=== PATIENT | female | born 1965 | race Caucasian/White ===

== ENCOUNTER 2017-05-08 05:12 | Inpatient (IN) ==
[2017-05-08] MEDS ORDERED: cefTRIAXone 1,000 MG in SODIUM CHLORIDE 0.9% 100 ML IV STA (05:33)
[2017-05-08] MEDS ORDERED: ENOXAPARIN 100 MG/ML SYRINGE SUBCUT STA (05:33)
[2017-05-08] MEDS ORDERED: ONDANSETRON ODT 4 MG TABLET PO STA (05:33)
[2017-05-08] MEDS ORDERED: ALBUTEROL 2.5 MG/3 ML NEB RESP TX STA (05:33)
[2017-05-08] MEDS ORDERED: methylPREDNISolone SOD SUC 125 MG/2 ML VIAL IV STA (05:33)
[2017-05-08] MEDS ORDERED: ONDANSETRON 4 MG/2 ML VIAL IV STA (05:37)
[2017-05-08] MEDS ORDERED: ENOXAPARIN 60 MG/0.6 ML SYRINGE ONE (05:38)
[2017-05-08] MEDS ORDERED: ONDANSETRON 4 MG/2 ML VIAL ONE (05:38)
[2017-05-08] MEDS ORDERED: cefTRIAXone 1,000 MG VIAL ONE (05:38)
[2017-05-08] MEDS ORDERED: ENOXAPARIN 30 MG/0.3 ML SYRINGE ONE (05:39)
[2017-05-08] MEDS ORDERED: methylPREDNISolone SOD SUC 125 MG/2 ML VIAL ONE (05:39)
[2017-05-08] MEDS ORDERED: LORazepam 2 MG/1 ML VIAL ONE (05:40)
[2017-05-08 05:44] LABS: Basophils % 0.4 % (0.0-0.8); Eosinophils # 0.1 10*3/uL (0.0-0.87); Eosinophils % 1.1 % (0.00-10.9); Hematocrit 38.5 VOL% (35.7-47.0); Hemoglobin 11.7 GM/DL (12.0-16.0); Immature Granulocytes % 0.2 %; Immature Granulocytes Absolute 0.02 #; Lymphocytes # 0.8 10*3/uL (1.4-4.0); Lymphocytes % 10.4 % (21.3-54.2); Mean Corpuscular HGB Conc 30.4 GM/DL (32-36); Mean Corpuscular Hemoglobin 26 PG (27-34); Mean Corpuscular Volume 86.1 FL (87-102); Mean Platelet Volume 9.4 FL (9.6-12.0); Monocytes # 1.1 10*3/uL (0.11-0.8); Neutrophils # 5.9 10*3/uL (1.4-7.4); Neutrophils % 73.9 % (38.7-73.9); Platelet Count 179 T/CUMM (130-400); Red Blood Count 4.47 MC/CUMM (3.8-5.5); Red Cell Distribution Width 13.6 % (9.3-17.3)
[2017-05-08 05:45] LABS: PT Patient Result 10.4 SECS
[2017-05-08 06:03] LABS: Albumin 3.8 G/DL (3.4-5.0); Bilirubin,Total 0.5 MG/DL (0.2-1.0); Calcium 8.8 MG/DL (8.5-10.1); Osmolality,Calculated 269.1 MOS/KG (273-304); Potassium 3.2 MMOL/L (3.5-5.1); Total Protein 7.1 G/DL (6.4-8.3)
[2017-05-08 06:05] LABS: ABG Base Excess 10.6 MMOL/L (-2.5-2.5); ABG HCO3 34.1 MMOL/L (20-26); ABG Oxygen Saturation 88.2 % (95-100); ABG PH 7.338 (7.35-7.45); ABG PO2 56.4 MM HG (80-95); ABG TCO2 35.8 MMOL/L (23-27)
[2017-05-08 06:10] LABS: ABG PCO2 73.4 MM HG (35-48)
[2017-05-08 07:05] LABS: Apearance,Urine CLEAR (Clear); Bilirubin,Urine Negative (Negative); Blood, Urine Large mg/dL (Negative); Glucose,Urine (UA) Negative (Negative); Ketones,Urine Negative (Negative); Mucus,Urine Occasional /LPF (Occasional); Nitrite,Urine Negative (Negative); Protein,Urine 100 MG/DL; RBC,Urine 99 /HPF (0-4); Squamous Epithelial Cell,Urine Occasional /HPF (0-10); Urine Color Yellow (Yellow); Urine Specific Gravity 1.031 (1.001-1.035); Urine Urobilinogen < 2.0 EU/DL (0.2-1.0); WBC,Urine 1 /HPF (0-6)
[2017-05-08 09:31] LABS: Apearance,Urine CLEAR (Clear); Bilirubin,Urine Negative (Negative); Blood, Urine Large mg/dL (Negative); Glucose,Urine (UA) Negative (Negative); Ketones,Urine Negative (Negative); Nitrite,Urine Negative (Negative); Protein,Urine 30 MG/DL; RBC,Urine 49 /HPF (0-4); Squamous Epithelial Cell,Urine Occasional /HPF (0-10); Urine Color Yellow (Yellow); WBC,Urine 3 /HPF (0-6)
[2017-05-08] MEDS ORDERED: DOCUSATE SODIUM 100 MG CAPSULE PO PRN (09:48)
[2017-05-08] MEDS ORDERED: ALBUTEROL 2.5 MG/3 ML NEB RESP TX PRN (09:48)
[2017-05-08] MEDS ORDERED: ONDANSETRON 4 MG/2 ML VIAL IV PRN (09:48)
[2017-05-08] MEDS: PANTOPRAZOLE 40 MG VIAL IV SCH (10:55)
[2017-05-08] MEDS: MEROPENEM 1,000 MG in SYRINGE 1 EACH IV SCH (11:38)
[2017-05-08] MEDS: NICOTINE 14 MG/24 HR PATCH TRANSDERM SCH (11:39)
[2017-05-08] MEDS: LEVOFLOXACIN INJ 500 MG in PREMIX 1 EACH IV SCH (11:40)
[2017-05-08] MEDS: POLYETHYLENE GLYCOL POWDER 17 GM PACK PO SCH (11:45)
[2017-05-08] MEDS: METHADONE 10 MG TABLET PO SCH (12:19)
[2017-05-08] MEDS: ALBUTEROL/IPRATROPIUM 3 ML NEB RESP TX SCH ×2 (13:33→18:14)
[2017-05-08] MEDS: VANCOMYCIN INJ 1,500 MG in SODIUM CHLORIDE 0.9% 500 ML IV SCH (14:06)
[2017-05-08] MEDS: THEOPHYLLINE ER 300 MG TABLET PO SCH (16:28)
[2017-05-08] MEDS: GABAPENTIN 600 MG TABLET PO SCH (16:28)
[2017-05-08 16:50] LABS: Apearance,Urine CLOUDY (Clear); Bilirubin,Urine Negative (Negative); Blood, Urine Large mg/dL (Negative); Glucose,Urine (UA) 50 mg/dL (Negative); Ketones,Urine 5 mg/dL (Negative); Nitrite,Urine Negative (Negative); Protein,Urine 30 MG/DL; RBC,Urine 6 /HPF (0-4); Squamous Epithelial Cell,Urine Occasional /HPF (0-10); Urine Urobilinogen < 2.0 EU/DL (0.2-1.0)
[2017-05-08 16:52] LABS: Urine Color Dark yellow (Yellow)
[2017-05-08] MEDS: methylPREDNISolone SOD SUC 40 MG/1 ML VIAL IV SCH (21:19)
[2017-05-08] MEDS: GABAPENTIN 300 MG CAPSULE PO SCH (21:21)
[2017-05-08] MEDS: BUDESONIDE/FORMOTEROL 160-4.5 INHALER 6 GM INH SCH (21:23)
[2017-05-09] MEDS: MEROPENEM 1,000 MG in SYRINGE 1 EACH IV SCH ×3 (00:30→23:52)
[2017-05-09] MEDS: VANCOMYCIN INJ 1,500 MG in SODIUM CHLORIDE 0.9% 500 ML IV SCH ×3 (00:53→23:59)
[2017-05-09] MEDS: ALBUTEROL/IPRATROPIUM 3 ML NEB RESP TX SCH ×3 (01:16→13:00)
[2017-05-09] MEDS: CITALOPRAM 20 MG TABLET PO SCH (08:58)
[2017-05-09] MEDS: THEOPHYLLINE ER 300 MG TABLET PO SCH ×2 (08:58→16:45)
[2017-05-09] MEDS: METHADONE 10 MG TABLET PO SCH (08:58)
[2017-05-09] MEDS ORDERED: POTASSIUM CHLORIDE 10 MEQ TABLET PO SCH (09:00)
[2017-05-09] MEDS: ATENOLOL 25 MG TABLET PO SCH (09:01)
[2017-05-09] MEDS: FUROSEMIDE 80 MG TABLET PO SCH (09:01)
[2017-05-09] MEDS: GABAPENTIN 300 MG CAPSULE PO SCH ×2 (09:01→21:04)
[2017-05-09] MEDS: ACETAMINOPHEN 325 MG TABLET PO PRN (09:01)
[2017-05-09] MEDS: methylPREDNISolone SOD SUC 40 MG/1 ML VIAL IV SCH ×2 (09:02→21:04)
[2017-05-09] MEDS: NICOTINE 14 MG/24 HR PATCH TRANSDERM SCH (09:02)
[2017-05-09] MEDS: PANTOPRAZOLE 40 MG VIAL IV SCH (09:08)
[2017-05-09] MEDS: POLYETHYLENE GLYCOL POWDER 17 GM PACK PO SCH (09:20)
[2017-05-09] MEDS: BUDESONIDE/FORMOTEROL 160-4.5 INHALER 6 GM INH SCH ×2 (09:22→21:05)
[2017-05-09] MEDS: LEVOFLOXACIN INJ 500 MG in PREMIX 1 EACH IV SCH (10:45)
[2017-05-09] MEDS ORDERED: CYCLOBENZAPRINE 10 MG TABLET PO PRN (14:14)
[2017-05-09] MEDS ORDERED: POTASSIUM CHLORIDE 20 MEQ TABLET PO ONE (14:17)
[2017-05-09] MEDS: ALPRAZolam 0.25 MG TABLET PO PRN ×2 (14:19→21:03)
[2017-05-09] MEDS: GABAPENTIN 600 MG TABLET PO SCH (16:49)
[2017-05-10] MEDS: ALBUTEROL/IPRATROPIUM 3 ML NEB RESP TX SCH ×5 (00:45→19:59)
[2017-05-10] MEDS: METHADONE 10 MG TABLET PO SCH (08:23)
[2017-05-10] MEDS: THEOPHYLLINE ER 300 MG TABLET PO SCH ×2 (08:24→17:40)
[2017-05-10] MEDS: ACETAMINOPHEN 325 MG TABLET PO PRN ×3 (08:24→17:40)
[2017-05-10] MEDS: ATENOLOL 25 MG TABLET PO SCH (08:24)
[2017-05-10] MEDS: FUROSEMIDE 80 MG TABLET PO SCH (08:24)
[2017-05-10] MEDS: GABAPENTIN 300 MG CAPSULE PO SCH ×2 (08:24→20:10)
[2017-05-10] MEDS: CITALOPRAM 20 MG TABLET PO SCH (08:25)
[2017-05-10] MEDS: NICOTINE 14 MG/24 HR PATCH TRANSDERM SCH (08:25)
[2017-05-10] MEDS: methylPREDNISolone SOD SUC 40 MG/1 ML VIAL IV SCH ×2 (08:25→20:10)
[2017-05-10] MEDS: POLYETHYLENE GLYCOL POWDER 17 GM PACK PO SCH (08:38)
[2017-05-10] MEDS: BUDESONIDE/FORMOTEROL 160-4.5 INHALER 6 GM INH SCH ×2 (08:40→20:10)
[2017-05-10] MEDS: PANTOPRAZOLE 40 MG VIAL IV SCH (09:39)
[2017-05-10] MEDS: MEROPENEM 1,000 MG in SYRINGE 1 EACH IV SCH (10:33)
[2017-05-10] MEDS: LEVOFLOXACIN INJ 500 MG in PREMIX 1 EACH IV SCH (10:36)
[2017-05-10] MEDS: METHYLNALTREXONE 12 MG/0.6 ML VIAL SUBCUT SCH (11:20)
[2017-05-10] MEDS: VANCOMYCIN INJ 1,500 MG in SODIUM CHLORIDE 0.9% 500 ML IV SCH (15:05)
[2017-05-10] MEDS: GABAPENTIN 600 MG TABLET PO SCH (17:41)
[2017-05-11] MEDS: VANCOMYCIN INJ 1,500 MG in SODIUM CHLORIDE 0.9% 500 ML IV SCH ×2 (00:02→16:30)
[2017-05-11] MEDS: ALBUTEROL/IPRATROPIUM 3 ML NEB RESP TX SCH ×4 (00:47→19:30)
[2017-05-11] MEDS: CLORAZEPATE 3.75 MG TABLET PO PRN ×3 (01:34→23:15)
[2017-05-11 05:45] LABS: Calcium 8.4 MG/DL (8.5-10.1); Osmolality,Calculated 282.5 MOS/KG (273-304)
[2017-05-11] MEDS: POLYETHYLENE GLYCOL POWDER 17 GM PACK PO SCH (08:55)
[2017-05-11] MEDS: GABAPENTIN 300 MG CAPSULE PO SCH ×2 (08:55→21:25)
[2017-05-11] MEDS: CITALOPRAM 20 MG TABLET PO SCH (08:55)
[2017-05-11] MEDS: FUROSEMIDE 80 MG TABLET PO SCH (08:55)
[2017-05-11] MEDS: ATENOLOL 25 MG TABLET PO SCH (08:55)
[2017-05-11] MEDS: THEOPHYLLINE ER 300 MG TABLET PO SCH ×2 (08:56→18:20)
[2017-05-11] MEDS: METHADONE 10 MG TABLET PO SCH ×2 (08:56→21:23)
[2017-05-11] MEDS: methylPREDNISolone SOD SUC 40 MG/1 ML VIAL IV SCH ×2 (08:57→21:25)
[2017-05-11] MEDS: PANTOPRAZOLE 40 MG VIAL IV SCH (09:01)
[2017-05-11] MEDS: METHYLNALTREXONE 12 MG/0.6 ML VIAL SUBCUT SCH (09:08)
[2017-05-11] MEDS: BUDESONIDE/FORMOTEROL 160-4.5 INHALER 6 GM INH SCH ×2 (09:08→21:25)
[2017-05-11] MEDS: NICOTINE 14 MG/24 HR PATCH TRANSDERM SCH (09:09)
[2017-05-11] MEDS: LEVOFLOXACIN INJ 500 MG in PREMIX 1 EACH IV SCH (11:20)
[2017-05-11] MEDS: POTASSIUM CHLORIDE 20 MEQ TABLET PO SCH ×2 (16:51→18:20)
[2017-05-11] MEDS: GABAPENTIN 600 MG TABLET PO SCH (16:51)
[2017-05-12] MEDS: ALBUTEROL/IPRATROPIUM 3 ML NEB RESP TX SCH ×3 (00:02→13:24)
[2017-05-12] MEDS: VANCOMYCIN INJ 1,500 MG in SODIUM CHLORIDE 0.9% 500 ML IV SCH (05:00)
[2017-05-12] MEDS: POLYETHYLENE GLYCOL POWDER 17 GM PACK PO SCH (08:39)
[2017-05-12] MEDS: methylPREDNISolone SOD SUC 40 MG/1 ML VIAL IV SCH (08:39)
[2017-05-12] MEDS: METHYLNALTREXONE 12 MG/0.6 ML VIAL SUBCUT SCH (08:40)
[2017-05-12] MEDS: NICOTINE 14 MG/24 HR PATCH TRANSDERM SCH (08:40)
[2017-05-12] MEDS: GABAPENTIN 300 MG CAPSULE PO SCH (08:41)
[2017-05-12] MEDS: METHADONE 10 MG TABLET PO SCH (08:41)
[2017-05-12] MEDS: BUDESONIDE/FORMOTEROL 160-4.5 INHALER 6 GM INH SCH (08:42)
[2017-05-12] MEDS: THEOPHYLLINE ER 300 MG TABLET PO SCH (08:42)
[2017-05-12] MEDS: ATENOLOL 25 MG TABLET PO SCH (08:42)
[2017-05-12] MEDS: CITALOPRAM 20 MG TABLET PO SCH (08:42)
[2017-05-12 08:58] VITALS: BP 152/87
[2017-05-12] MEDS: PANTOPRAZOLE 40 MG VIAL IV SCH (09:48)
[2017-05-12] MEDS: LEVOFLOXACIN INJ 500 MG in PREMIX 1 EACH IV SCH (11:49)
== END 2017-05-12 14:15 | disposition home health service (06) | DRG 140 ==
LOC: EDUNIT# → EDBD → N.ED 05:12 → SUATTDRO 09:18 → N.EDINP 09:18 → N.CC 10:08 → UNDODISIN 13:30
PROVIDERS: ADMIT Internal Medicine; ATTEND Internal Medicine

== ENCOUNTER 2019-04-16 20:02 | Inpatient (IN) ==
[2019-04-16] MEDS ORDERED: ONDANSETRON 4 MG/2 ML VIAL IV STA (20:27)
[2019-04-16] MEDS ORDERED: SODIUM CHLORIDE 0.9% 1,000 ML IV STA (20:27)
[2019-04-16 21:08] LABS: Basophils % 0.2 % (0.0-0.8); Eosinophils # 0.3 10*3/uL (0.0-0.87); Eosinophils % 2.9 % (0.00-10.9); Hematocrit 35.8 VOL% (35.7-47.0); Hemoglobin 10.8 GM/DL (12.0-16.0); Immature Granulocytes % 0.5 %; Immature Granulocytes Absolute 0.04 #; Lymphocytes # 0.8 10*3/uL (1.4-4.0); Lymphocytes % 9.3 % (21.3-54.2); Mean Corpuscular HGB Conc 30.2 GM/DL (32-36); Mean Corpuscular Volume 85.2 FL (87-102); Monocytes % 9.9 % (1.7-12.7); Neutrophils % 77.2 % (38.7-73.9); Platelet Count 172 T/CUMM (130-400); Red Cell Distribution Width 14.6 % (9.3-17.3); White Blood Count 8.8 T/CUMM (4-12)
[2019-04-16 21:31] LABS: Albumin 3.2 G/DL (3.4-5.0); Bilirubin,Total 0.6 MG/DL (0.2-1.0); Calcium 9.1 MG/DL (8.5-10.1); Osmolality,Calculated 262.4 MOS/KG (273-304); Total Protein 6.3 G/DL (6.4-8.3)
[2019-04-16 21:51] LABS: Apearance,Urine CLEAR (Clear); Bilirubin,Urine Negative (Negative); Blood, Urine Small mg/dL (Negative); Calcium Oxalate Crystals,Urine Occasional /HPF (Few); Glucose,Urine (UA) Negative (Negative); Ketones,Urine 5 mg/dL (Negative); Mucus,Urine Few /LPF (Occasional); Nitrite,Urine Negative (Negative); Protein,Urine Negative; RBC,Urine 18 /HPF (0-4); Squamous Epithelial Cell,Urine Few /HPF (0-10); Urine Color Amber (Yellow); Urine Specific Gravity > 1.060 (1.001-1.035); Urine Urobilinogen < 2.0 EU/DL (0.2-1.0); WBC,Urine 3 /HPF (0-6)
[2019-04-16] MEDS ORDERED: POTASSIUM CHLORIDE INJ 40 MEQ in DEXTROSE 5% 1,000 ML IV SCH (22:30)
[2019-04-16] MEDS ORDERED: ZALEPLON 5 MG CAPSULE PO PRN (22:58)
[2019-04-16] MEDS ORDERED: hydrALAZINE 20 MG/1 ML VIAL IV PRN (23:03)
[2019-04-16] MEDS ORDERED: ALBUTEROL 2.5 MG/3 ML NEB RESP TX PRN (23:06)
[2019-04-17] MEDS: DEXT 5% NACL 0.45% KCL 40 MEQ 40 MEQ/1,000 ML BAG IV SCH ×3 (03:46→22:48)
[2019-04-17 04:42] LABS: Basophils % 0.3 % (0.0-0.8); Eosinophils # 0.3 10*3/uL (0.0-0.87); Eosinophils % 3.5 % (0.00-10.9); Hematocrit 34.7 VOL% (35.7-47.0); Immature Granulocytes % 0.4 %; Immature Granulocytes Absolute 0.03 #; Lymphocytes # 0.9 10*3/uL (1.4-4.0); Lymphocytes % 12.3 % (21.3-54.2); Mean Corpuscular HGB Conc 29.4 GM/DL (32-36); Mean Corpuscular Volume 86.1 FL (87-102); Mean Platelet Volume 10.6 FL (9.6-12.0); Neutrophils % 70.5 % (38.7-73.9); Platelet Count 163 T/CUMM (130-400); Red Blood Count 4.03 MC/CUMM (3.8-5.5); Red Cell Distribution Width 14.7 % (9.3-17.3); White Blood Count 7.2 T/CUMM (4-12)
[2019-04-17 05:09] LABS: Calcium 9.2 MG/DL (8.5-10.1); Osmolality,Calculated 269.8 MOS/KG (273-304)
[2019-04-17 05:11] LABS: Hemoglobin 10.5 GM/DL (12.0-16.0)
[2019-04-17] MEDS: ACETAMINOPHEN 325 MG TABLET PO PRN (06:07)
[2019-04-17] MEDS ORDERED: CLINDAMYCIN INJ 900 MG in PREMIX 1 EACH IV ONE (07:05)
[2019-04-17] MEDS ORDERED: GABAPENTIN 300 MG CAPSULE PO SCH (09:00)
[2019-04-17] MEDS ORDERED: SPIRONOLACTONE 50 MG TABLET PO SCH (09:00)
[2019-04-17] MEDS ORDERED: FUROSEMIDE 40 MG TABLET PO SCH (09:00)
[2019-04-17] MEDS ORDERED: CITALOPRAM 20 MG TABLET PO SCH (09:00)
[2019-04-17] MEDS ORDERED: NIFEdipine 10 MG CAPSULE PO SCH (09:00)
[2019-04-17] MEDS ORDERED: atenoloL 25 MG TABLET PO SCH (09:00)
[2019-04-17] MEDS ORDERED: PANTOPRAZOLE 40 MG TABLET PO SCH (09:00)
[2019-04-17] MEDS ORDERED: TISSUE ADHESIVE 1 EACH APPLICATOR TOP ONE (09:18)
[2019-04-17] MEDS ORDERED: BUPIVACAINE MPF 0.25% 30 ML VIAL ONE ×2 (09:18→09:39)
[2019-04-17] MEDS ORDERED: LIDOCAINE 1%/EPI INJ 20 ML VIAL ONE (09:18)
[2019-04-17] MEDS ORDERED: LACTATED RINGERS 1,000 ML IV SCH (09:30)
[2019-04-17] MEDS ORDERED: LIDOCAINE 1% 5 ML VIAL ONE (09:39)
[2019-04-17] MEDS ORDERED: DEXAMETHASONE 4 MG/1 ML VIAL ONE (09:39)
[2019-04-17] MEDS ORDERED: propofoL 200 MG/20 ML VIAL IV ONE (12:05)
[2019-04-17] MEDS ORDERED: fentaNYL 100 MCG/2 ML VIAL ONE (12:05)
[2019-04-17] MEDS ORDERED: ROCURONIUM 100 MG/10 ML VIAL IV ONE (12:05)
[2019-04-17] MEDS ORDERED: SUCCINYLCHOLINE 200 MG/10 ML VIAL ONE (12:05)
[2019-04-17] MEDS ORDERED: MIDAZOLAM 2 MG/2 ML VIAL ONE (12:05)
[2019-04-17] MEDS ORDERED: LIDOCAINE 2% 5 ML VIAL ONE (12:05)
[2019-04-17] MEDS ORDERED: SEVOFLURANE 1 UNIT/15 MINUTE INH ONE (12:05)
[2019-04-17 12:14] LABS: Apearance,Urine Slightly Hazy (Clear); Bacteria,Urine Occasional /HPF (Few); Bilirubin,Urine Negative (Negative); Blood, Urine Moderate mg/dL (Negative); Glucose,Urine (UA) Negative (Negative); Ketones,Urine 20 mg/dL (Negative); Mucus,Urine Occasional /LPF (Occasional); Nitrite,Urine Negative (Negative); Protein,Urine Negative; RBC,Urine 48 /HPF (0-4); Squamous Epithelial Cell,Urine Occasional /HPF (0-10); Urine Color Amber (Yellow); Urine Specific Gravity > 1.060 (1.001-1.035); Urine Urobilinogen < 2.0 EU/DL (0.2-1.0); WBC,Urine 2 /HPF (0-6)
[2019-04-17 12:26] LABS: Basophils % 0.2 % (0.0-0.8); Eosinophils # 0.2 10*3/uL (0.0-0.87); Eosinophils % 2.1 % (0.00-10.9); Hematocrit 38.6 VOL% (35.7-47.0); Hemoglobin 11.6 GM/DL (12.0-16.0); Immature Granulocytes % 0.3 %; Immature Granulocytes Absolute 0.03 #; Lymphocytes # 1.4 10*3/uL (1.4-4.0); Lymphocytes % 14.2 % (21.3-54.2); Mean Corpuscular HGB Conc 30.1 GM/DL (32-36); Mean Corpuscular Volume 84.5 FL (87-102); Mean Platelet Volume 10.3 FL (9.6-12.0); Monocytes % 10.3 % (1.7-12.7); Neutrophils % 72.9 % (38.7-73.9); Platelet Count 172 T/CUMM (130-400); Red Blood Count 4.57 MC/CUMM (3.8-5.5); Red Cell Distribution Width 14.6 % (9.3-17.3); White Blood Count 9.5 T/CUMM (4-12)
[2019-04-17] MEDS: THEOPHYLLINE ER 300 MG TABLET PO SCH ×2 (12:28→18:40)
[2019-04-17] MEDS: METHADONE 10 MG TABLET PO SCH ×2 (12:29→22:43)
[2019-04-17] MEDS: CITALOPRAM 20 MG TABLET PO SCH (12:29)
[2019-04-17] MEDS: FUROSEMIDE 20 MG TABLET PO SCH (12:30)
[2019-04-17] MEDS: BUDESONIDE/FORMOTEROL 160-4.5 INHALER 6 GM INH SCH ×2 (12:31→22:43)
[2019-04-17] MEDS: GABAPENTIN 300 MG CAPSULE PO SCH (12:31)
[2019-04-17 12:38] LABS: Calcium 9.6 MG/DL (8.5-10.1); Osmolality,Calculated 269.8 MOS/KG (273-304)
[2019-04-17 12:48] LABS: ABG Base Excess 7.4 MMOL/L (-2.5-2.5); ABG HCO3 31.3 MMOL/L (20-26); ABG Oxygen Saturation 99.7 % (95-100); ABG PCO2 46.8 MM HG (35-48)
[2019-04-17] MEDS: HYDROmorphone 2 MG/1 ML VIAL IV PRN ×2 (13:02→22:22)
[2019-04-17] MEDS: fentaNYL INJ 1,250 MCG in SODIUM CHLORIDE 0.9% 225 ML IV PRN ×2 (13:10→23:06)
[2019-04-17] MEDS: ENOXAPARIN 40 MG/0.4 ML SYRINGE SUBCUT SCH (13:23)
[2019-04-17] MEDS: NICOTINE 21 MG/24 HR PATCH TRANSDERM SCH (13:25)
[2019-04-17] MEDS: ALBUTEROL/IPRATROPIUM 3 ML NEB RESP TX SCH (19:15)
[2019-04-17] MEDS: MAGNESIUM CHLORIDE 64 MG TABLET PO SCH (22:42)
[2019-04-17] MEDS: GABAPENTIN 100 MG CAPSULE PO SCH (22:43)
[2019-04-17] MEDS: atenoloL 25 MG TABLET PO SCH (22:50)
[2019-04-17] MEDS: THEOPHYLLINE 5.33 MG/ML 30 ML/BOTTLE PO SCH (23:02)
[2019-04-18] MEDS: ALBUTEROL/IPRATROPIUM 3 ML NEB RESP TX SCH ×4 (01:09→20:20)
[2019-04-18] MEDS: HYDROmorphone 2 MG/1 ML VIAL IV PRN ×5 (03:06→19:59)
[2019-04-18 03:15] LABS: ABG Base Excess 6.7 MMOL/L (-2.5-2.5); ABG HCO3 30.5 MMOL/L (20-26); ABG Oxygen Saturation 99.1 % (95-100); ABG PCO2 41.3 MM HG (35-48); ABG TCO2 27.3 MMOL/L (23-27); Allen Test Positive; Pt O2 Delivery Device Ventilator
[2019-04-18] MEDS: THEOPHYLLINE 5.33 MG/ML 30 ML/BOTTLE PO SCH ×3 (05:21→17:02)
[2019-04-18] MEDS: fentaNYL INJ 1,250 MCG in SODIUM CHLORIDE 0.9% 225 ML IV PRN (05:27)
[2019-04-18 06:23] LABS: Basophils % 0.2 % (0.0-0.8); Eosinophils # 0.1 10*3/uL (0.0-0.87); Eosinophils % 0.4 % (0.00-10.9); Hematocrit 34.2 VOL% (35.7-47.0); Hemoglobin 10.7 GM/DL (12.0-16.0); Immature Granulocytes % 0.6 %; Immature Granulocytes Absolute 0.08 #; Lymphocytes # 0.7 10*3/uL (1.4-4.0); Lymphocytes % 5.8 % (21.3-54.2); Mean Corpuscular HGB Conc 31.3 GM/DL (32-36); Mean Corpuscular Volume 82.4 FL (87-102); Mean Platelet Volume 10.5 FL (9.6-12.0); Monocytes % 9.9 % (1.7-12.7); Neutrophils % 83.1 % (38.7-73.9); Platelet Count 161 T/CUMM (130-400); Red Blood Count 4.15 MC/CUMM (3.8-5.5); Red Cell Distribution Width 14.8 % (9.3-17.3); White Blood Count 12.7 T/CUMM (4-12)
[2019-04-18 06:38] LABS: Calcium 8.3 MG/DL (8.5-10.1); Osmolality,Calculated 271.8 MOS/KG (273-304)
[2019-04-18] MEDS: POTASSIUM CHLORIDE RIDER 10 MEQ in PREMIX 1 EACH IV PRN ×3 (07:14→11:51)
[2019-04-18] MEDS: ENOXAPARIN 40 MG/0.4 ML SYRINGE SUBCUT SCH (08:30)
[2019-04-18] MEDS: CITALOPRAM 20 MG TABLET PO SCH (08:30)
[2019-04-18] MEDS: OMEPRAZOLE ODT 20 MG TABLET NG SCH (08:31)
[2019-04-18] MEDS: METHADONE 10 MG TABLET PO SCH ×2 (08:31→20:18)
[2019-04-18] MEDS: GABAPENTIN 300 MG CAPSULE PO SCH (08:31)
[2019-04-18] MEDS: CLORAZEPATE 3.75 MG TABLET PO PRN ×2 (08:31→20:17)
[2019-04-18] MEDS: FUROSEMIDE 20 MG TABLET PO SCH (08:31)
[2019-04-18] MEDS: NICOTINE 21 MG/24 HR PATCH TRANSDERM SCH (08:31)
[2019-04-18] MEDS ORDERED: MAGNESIUM SULF RIDER 2 GM in PREMIX 1 EACH IV ONE (08:37)
[2019-04-18] MEDS: BUDESONIDE/FORMOTEROL 160-4.5 INHALER 6 GM INH SCH ×2 (08:42→21:11)
[2019-04-18] MEDS: POTASSIUM CHLORIDE RIDER 10 MEQ in PREMIX 1 EACH IV SCH ×2 (08:42→09:45)
[2019-04-18] MEDS ORDERED: LANSOPRAZOLE 3 MG/ML 90 ML/BOTTLE NG SCH (09:00)
[2019-04-18] MEDS: POTASSIUM CHLORIDE INJ 20 MEQ in LACTATED RINGERS 1,000 ML IV SCH ×2 (09:43→17:09)
[2019-04-18] MEDS: MAGNESIUM CHLORIDE 64 MG TABLET PO SCH (20:17)
[2019-04-18] MEDS: GABAPENTIN 100 MG CAPSULE PO SCH (20:18)
[2019-04-18] MEDS: atenoloL 25 MG TABLET PO SCH (20:18)
[2019-04-18] MEDS: ONDANSETRON 4 MG/2 ML VIAL IV PRN (21:09)
[2019-04-19] MEDS: THEOPHYLLINE 5.33 MG/ML 30 ML/BOTTLE PO SCH ×4 (00:43→18:29)
[2019-04-19] MEDS: ALBUTEROL/IPRATROPIUM 3 ML NEB RESP TX SCH ×4 (02:01→20:11)
[2019-04-19] MEDS: POTASSIUM CHLORIDE INJ 20 MEQ in LACTATED RINGERS 1,000 ML IV SCH ×4 (02:29→20:59)
[2019-04-19] MEDS: HYDROmorphone 2 MG/1 ML VIAL IV PRN ×2 (06:21→18:29)
[2019-04-19 06:49] LABS: Basophils % 0.2 % (0.0-0.8); Eosinophils # 0.3 10*3/uL (0.0-0.87); Hematocrit 37.6 VOL% (35.7-47.0); Immature Granulocytes % 0.5 %; Immature Granulocytes Absolute 0.05 #; Lymphocytes # 0.7 10*3/uL (1.4-4.0); Lymphocytes % 6.2 % (21.3-54.2); Mean Corpuscular HGB Conc 29.3 GM/DL (32-36); Mean Corpuscular Volume 86.2 FL (87-102); Mean Platelet Volume 10.5 FL (9.6-12.0); Monocytes % 11.8 % (1.7-12.7); Neutrophils % 78.3 % (38.7-73.9); Platelet Count 153 T/CUMM (130-400); Red Blood Count 4.36 MC/CUMM (3.8-5.5); Red Cell Distribution Width 14.9 % (9.3-17.3); White Blood Count 10.8 T/CUMM (4-12)
[2019-04-19 06:51] LABS: Calcium 8.7 MG/DL (8.5-10.1); Osmolality,Calculated 271.7 MOS/KG (273-304)
[2019-04-19] MEDS: ONDANSETRON 4 MG/2 ML VIAL IV PRN (07:41)
[2019-04-19] MEDS: ENOXAPARIN 40 MG/0.4 ML SYRINGE SUBCUT SCH (08:31)
[2019-04-19] MEDS: CITALOPRAM 20 MG TABLET PO SCH (08:31)
[2019-04-19] MEDS: METHADONE 10 MG TABLET PO SCH ×2 (08:32→21:33)
[2019-04-19] MEDS: CLORAZEPATE 3.75 MG TABLET PO PRN ×2 (08:33→21:04)
[2019-04-19] MEDS: GABAPENTIN 300 MG CAPSULE PO SCH (08:33)
[2019-04-19] MEDS: NICOTINE 21 MG/24 HR PATCH TRANSDERM SCH (08:33)
[2019-04-19] MEDS: BUDESONIDE/FORMOTEROL 160-4.5 INHALER 6 GM INH SCH ×2 (08:34→21:00)
[2019-04-19] MEDS: OMEPRAZOLE ODT 20 MG TABLET NG SCH (08:34)
[2019-04-19] MEDS: GABAPENTIN 100 MG CAPSULE PO SCH (20:56)
[2019-04-19] MEDS: MAGNESIUM CHLORIDE 64 MG TABLET PO SCH (20:57)
[2019-04-19] MEDS: atenoloL 25 MG TABLET PO SCH (20:57)
[2019-04-20] MEDS: ALBUTEROL/IPRATROPIUM 3 ML NEB RESP TX SCH ×4 (00:34→19:22)
[2019-04-20] MEDS: THEOPHYLLINE 5.33 MG/ML 30 ML/BOTTLE PO SCH ×4 (00:37→21:21)
[2019-04-20] MEDS: POTASSIUM CHLORIDE INJ 20 MEQ in LACTATED RINGERS 1,000 ML IV SCH ×2 (04:00→12:55)
[2019-04-20 06:18] LABS: Basophils % 0.5 % (0.0-0.8); Eosinophils # 0.4 10*3/uL (0.0-0.87); Eosinophils % 5.2 % (0.00-10.9); Hemoglobin 9.7 GM/DL (12.0-16.0); Immature Granulocytes % 0.4 %; Immature Granulocytes Absolute 0.03 #; Lymphocytes # 0.9 10*3/uL (1.4-4.0); Lymphocytes % 10.6 % (21.3-54.2); Mean Corpuscular HGB Conc 29.4 GM/DL (32-36); Mean Corpuscular Volume 86.4 FL (87-102); Mean Platelet Volume 10.8 FL (9.6-12.0); Neutrophils % 70.3 % (38.7-73.9); Platelet Count 156 T/CUMM (130-400); Red Blood Count 3.82 MC/CUMM (3.8-5.5); Red Cell Distribution Width 14.8 % (9.3-17.3); White Blood Count 8.2 T/CUMM (4-12)
[2019-04-20 06:38] LABS: Calcium 8.6 MG/DL (8.5-10.1); Osmolality,Calculated 270.8 MOS/KG (273-304)
[2019-04-20] MEDS: OMEPRAZOLE ODT 20 MG TABLET NG SCH (09:13)
[2019-04-20] MEDS: METHADONE 10 MG TABLET PO SCH ×2 (09:13→21:17)
[2019-04-20] MEDS: CITALOPRAM 20 MG TABLET PO SCH (09:13)
[2019-04-20] MEDS: ENOXAPARIN 40 MG/0.4 ML SYRINGE SUBCUT SCH (09:13)
[2019-04-20] MEDS: NICOTINE 21 MG/24 HR PATCH TRANSDERM SCH (09:14)
[2019-04-20] MEDS: GABAPENTIN 300 MG CAPSULE PO SCH (09:14)
[2019-04-20] MEDS: BUDESONIDE/FORMOTEROL 160-4.5 INHALER 6 GM INH SCH ×2 (09:15→21:17)
[2019-04-20] MEDS: diphenhydrAMINE CAP 25 MG CAPSULE PO PRN ×2 (12:53→21:19)
[2019-04-20] MEDS: GABAPENTIN 100 MG CAPSULE PO SCH (21:19)
[2019-04-20] MEDS: MAGNESIUM CHLORIDE 64 MG TABLET PO SCH (21:19)
[2019-04-20] MEDS: CLORAZEPATE 3.75 MG TABLET PO PRN (21:20)
[2019-04-20] MEDS: atenoloL 25 MG TABLET PO SCH (21:20)
[2019-04-21] MEDS: ALBUTEROL/IPRATROPIUM 3 ML NEB RESP TX SCH ×4 (00:43→18:48)
[2019-04-21] MEDS: ACETAMINOPHEN 325 MG TABLET PO PRN ×2 (01:37→14:13)
[2019-04-21] MEDS: THEOPHYLLINE 5.33 MG/ML 30 ML/BOTTLE PO SCH ×3 (01:40→12:16)
[2019-04-21] MEDS: POTASSIUM CHLORIDE INJ 20 MEQ in LACTATED RINGERS 1,000 ML IV SCH (05:02)
[2019-04-21 05:14] LABS: Basophils % 0.4 % (0.0-0.8); Eosinophils # 0.5 10*3/uL (0.0-0.87); Eosinophils % 7.2 % (0.00-10.9); Hematocrit 31.1 VOL% (35.7-47.0); Hemoglobin 9.2 GM/DL (12.0-16.0); Immature Granulocytes % 0.4 %; Immature Granulocytes Absolute 0.03 #; Lymphocytes # 0.8 10*3/uL (1.4-4.0); Lymphocytes % 11.4 % (21.3-54.2); Mean Corpuscular HGB Conc 29.6 GM/DL (32-36); Mean Corpuscular Volume 85.7 FL (87-102); Mean Platelet Volume 11.1 FL (9.6-12.0); Neutrophils % 67.6 % (38.7-73.9); Platelet Count 161 T/CUMM (130-400); Red Blood Count 3.63 MC/CUMM (3.8-5.5); Red Cell Distribution Width 14.6 % (9.3-17.3); White Blood Count 7.2 T/CUMM (4-12)
[2019-04-21 05:39] LABS: Calcium 8.7 MG/DL (8.5-10.1); Osmolality,Calculated 268.8 MOS/KG (273-304)
[2019-04-21 05:41] LABS: Risk Ratio 3.18; VLDL CHOLESTEROL 18.8 MG/DL
[2019-04-21] MEDS: CITALOPRAM 20 MG TABLET PO SCH (09:27)
[2019-04-21] MEDS: FUROSEMIDE 20 MG TABLET PO SCH (09:27)
[2019-04-21] MEDS: NICOTINE 21 MG/24 HR PATCH TRANSDERM SCH (09:27)
[2019-04-21] MEDS: GABAPENTIN 300 MG CAPSULE PO SCH (09:28)
[2019-04-21] MEDS: ENOXAPARIN 40 MG/0.4 ML SYRINGE SUBCUT SCH (09:28)
[2019-04-21] MEDS: BUDESONIDE/FORMOTEROL 160-4.5 INHALER 6 GM INH SCH ×2 (09:29→21:44)
[2019-04-21] MEDS: OMEPRAZOLE ODT 20 MG TABLET NG SCH (09:29)
[2019-04-21] MEDS: METHADONE 10 MG TABLET PO SCH ×2 (10:02→21:44)
[2019-04-21] MEDS: AMOXICILLIN/CLAV 875 MG TABLET PO SCH ×2 (12:15→21:43)
[2019-04-21] MEDS: THEOPHYLLINE ER 300 MG TABLET PO SCH (17:15)
[2019-04-21] MEDS: MAGNESIUM CHLORIDE 64 MG TABLET PO SCH (21:43)
[2019-04-21] MEDS: CLORAZEPATE 3.75 MG TABLET PO PRN (21:43)
[2019-04-21] MEDS: GABAPENTIN 100 MG CAPSULE PO SCH (21:43)
[2019-04-21] MEDS: guaiFENesin/DM ER 600-30 MG TABLET PO PRN (21:43)
[2019-04-21] MEDS: atenoloL 25 MG TABLET PO SCH (21:45)
[2019-04-22] MEDS: ALBUTEROL/IPRATROPIUM 3 ML NEB RESP TX SCH ×4 (00:44→18:53)
[2019-04-22 05:59] LABS: Basophils % 0.6 % (0.0-0.8); Eosinophils # 0.5 10*3/uL (0.0-0.87); Eosinophils % 7.3 % (0.00-10.9); Hematocrit 32.2 VOL% (35.7-47.0); Hemoglobin 9.5 GM/DL (12.0-16.0); Immature Granulocytes % 0.7 %; Immature Granulocytes Absolute 0.05 #; Lymphocytes # 0.7 10*3/uL (1.4-4.0); Lymphocytes % 10.2 % (21.3-54.2); Mean Corpuscular HGB Conc 29.5 GM/DL (32-36); Mean Platelet Volume 10.5 FL (9.6-12.0); Monocytes % 10.3 % (1.7-12.7); Neutrophils % 70.9 % (38.7-73.9); Platelet Count 196 T/CUMM (130-400); Red Cell Distribution Width 14.6 % (9.3-17.3); White Blood Count 7.2 T/CUMM (4-12)
[2019-04-22 06:17] LABS: Calcium 8.6 MG/DL (8.5-10.1); Osmolality,Calculated 269.8 MOS/KG (273-304)
[2019-04-22] MEDS: POTASSIUM CHLORIDE RIDER 10 MEQ in PREMIX 1 EACH IV PRN (08:21)
[2019-04-22] MEDS: THEOPHYLLINE ER 300 MG TABLET PO SCH ×2 (08:22→17:32)
[2019-04-22] MEDS: CITALOPRAM 20 MG TABLET PO SCH (08:22)
[2019-04-22] MEDS: AMOXICILLIN/CLAV 875 MG TABLET PO SCH ×2 (08:22→20:33)
[2019-04-22] MEDS: ENOXAPARIN 40 MG/0.4 ML SYRINGE SUBCUT SCH (08:22)
[2019-04-22] MEDS: guaiFENesin/DM ER 600-30 MG TABLET PO PRN ×2 (08:23→20:33)
[2019-04-22] MEDS: GABAPENTIN 300 MG CAPSULE PO SCH (08:23)
[2019-04-22] MEDS: OMEPRAZOLE ODT 20 MG TABLET NG SCH (08:23)
[2019-04-22] MEDS: FUROSEMIDE 20 MG TABLET PO SCH (08:23)
[2019-04-22] MEDS: NICOTINE 21 MG/24 HR PATCH TRANSDERM SCH (08:44)
[2019-04-22] MEDS: METHADONE 10 MG TABLET PO SCH ×2 (09:36→20:31)
[2019-04-22] MEDS: BUDESONIDE/FORMOTEROL 160-4.5 INHALER 6 GM INH SCH ×2 (09:40→20:41)
[2019-04-22] MEDS: POTASSIUM CHLORIDE 20 MEQ TABLET PO PRN ×3 (11:58→17:32)
[2019-04-22] MEDS: ACETAMINOPHEN 325 MG TABLET PO PRN (11:58)
[2019-04-22] MEDS: CLORAZEPATE 3.75 MG TABLET PO PRN (20:31)
[2019-04-22] MEDS: atenoloL 25 MG TABLET PO SCH (20:33)
[2019-04-22] MEDS: diphenhydrAMINE CAP 25 MG CAPSULE PO PRN (20:33)
[2019-04-22] MEDS: GABAPENTIN 100 MG CAPSULE PO SCH (20:33)
[2019-04-22] MEDS: MAGNESIUM CHLORIDE 64 MG TABLET PO SCH (20:33)
[2019-04-22] MEDS: ONDANSETRON 4 MG/2 ML VIAL IV PRN (23:28)
[2019-04-23] MEDS: ALBUTEROL/IPRATROPIUM 3 ML NEB RESP TX SCH ×5 (00:32→19:32)
[2019-04-23 05:51] LABS: Basophils # 0.1 10*3/uL (0.0-0.2); Basophils % 0.7 % (0.0-0.8); Eosinophils # 0.7 10*3/uL (0.0-0.87); Eosinophils % 10.3 % (0.00-10.9); Hematocrit 33.9 VOL% (35.7-47.0); Immature Granulocytes % 0.1 %; Immature Granulocytes Absolute 0.01 #; Lymphocytes # 0.9 10*3/uL (1.4-4.0); Lymphocytes % 13.8 % (21.3-54.2); Mean Corpuscular HGB Conc 29.5 GM/DL (32-36); Mean Corpuscular Volume 86.5 FL (87-102); Mean Platelet Volume 10.3 FL (9.6-12.0); Monocytes % 13.5 % (1.7-12.7); Neutrophils % 61.6 % (38.7-73.9); Platelet Count 235 T/CUMM (130-400); Red Blood Count 3.92 MC/CUMM (3.8-5.5); Red Cell Distribution Width 14.7 % (9.3-17.3); White Blood Count 6.7 T/CUMM (4-12)
[2019-04-23 06:02] LABS: Calcium 9.1 MG/DL (8.5-10.1)
[2019-04-23] MEDS ORDERED: POLYETHYLENE GLYCOL POWDER 17 GM PACK PO SCH (09:00)
[2019-04-23] MEDS: CITALOPRAM 20 MG TABLET PO SCH (09:14)
[2019-04-23] MEDS: ENOXAPARIN 40 MG/0.4 ML SYRINGE SUBCUT SCH (09:14)
[2019-04-23] MEDS: OMEPRAZOLE ODT 20 MG TABLET NG SCH (09:15)
[2019-04-23] MEDS: FUROSEMIDE 20 MG TABLET PO SCH (09:15)
[2019-04-23] MEDS: THEOPHYLLINE ER 300 MG TABLET PO SCH ×2 (09:15→17:41)
[2019-04-23] MEDS: POTASSIUM CHLORIDE 20 MEQ TABLET PO PRN (09:15)
[2019-04-23] MEDS: AMOXICILLIN/CLAV 875 MG TABLET PO SCH ×2 (09:16→20:52)
[2019-04-23] MEDS: GABAPENTIN 300 MG CAPSULE PO SCH (09:16)
[2019-04-23] MEDS: NICOTINE 21 MG/24 HR PATCH TRANSDERM SCH (09:16)
[2019-04-23] MEDS: METHADONE 10 MG TABLET PO SCH ×2 (09:16→20:57)
[2019-04-23] MEDS: BUDESONIDE/FORMOTEROL 160-4.5 INHALER 6 GM INH SCH ×2 (09:17→20:59)
[2019-04-23] MEDS: MAGNESIUM CHLORIDE 64 MG TABLET PO SCH (20:51)
[2019-04-23] MEDS: GABAPENTIN 100 MG CAPSULE PO SCH (20:52)
[2019-04-23] MEDS: atenoloL 25 MG TABLET PO SCH (20:52)
[2019-04-23] MEDS: ACETAMINOPHEN 325 MG TABLET PO PRN (20:56)
[2019-04-24] MEDS: ALBUTEROL/IPRATROPIUM 3 ML NEB RESP TX SCH ×4 (00:15→20:08)
[2019-04-24 05:47] LABS: Basophils # 0.1 10*3/uL (0.0-0.2); Basophils % 0.7 % (0.0-0.8); Eosinophils # 0.6 10*3/uL (0.0-0.87); Hematocrit 35.7 VOL% (35.7-47.0); Hemoglobin 10.6 GM/DL (12.0-16.0); Immature Granulocytes % 0.4 %; Immature Granulocytes Absolute 0.03 #; Lymphocytes # 1.1 10*3/uL (1.4-4.0); Lymphocytes % 14.3 % (21.3-54.2); Mean Corpuscular HGB Conc 29.7 GM/DL (32-36); Mean Corpuscular Volume 85.6 FL (87-102); Mean Platelet Volume 9.9 FL (9.6-12.0); Monocytes % 13.5 % (1.7-12.7); Neutrophils % 63.1 % (38.7-73.9); Platelet Count 254 T/CUMM (130-400); Red Blood Count 4.17 MC/CUMM (3.8-5.5); Red Cell Distribution Width 14.5 % (9.3-17.3); White Blood Count 7.5 T/CUMM (4-12)
[2019-04-24 05:58] LABS: Calcium 9.2 MG/DL (8.5-10.1); Osmolality,Calculated 265.1 MOS/KG (273-304)
[2019-04-24] MEDS: GABAPENTIN 300 MG CAPSULE PO SCH (09:17)
[2019-04-24] MEDS: THEOPHYLLINE ER 300 MG TABLET PO SCH ×2 (09:18→17:06)
[2019-04-24] MEDS: FUROSEMIDE 20 MG TABLET PO SCH (09:18)
[2019-04-24] MEDS: AMOXICILLIN/CLAV 875 MG TABLET PO SCH ×2 (09:19→20:22)
[2019-04-24] MEDS: CITALOPRAM 20 MG TABLET PO SCH (09:21)
[2019-04-24] MEDS: OMEPRAZOLE ODT 20 MG TABLET NG SCH (09:23)
[2019-04-24] MEDS: ENOXAPARIN 40 MG/0.4 ML SYRINGE SUBCUT SCH (09:24)
[2019-04-24] MEDS: NICOTINE 21 MG/24 HR PATCH TRANSDERM SCH (09:28)
[2019-04-24] MEDS: METHADONE 10 MG TABLET PO SCH ×2 (09:40→22:00)
[2019-04-24] MEDS: POLYETHYLENE GLYCOL POWDER 17 GM PACK PO SCH ×3 (09:44→20:22)
[2019-04-24] MEDS: BUDESONIDE/FORMOTEROL 160-4.5 INHALER 6 GM INH SCH ×2 (11:12→20:26)
[2019-04-24] MEDS: guaiFENesin/DM ER 600-30 MG TABLET PO PRN (15:30)
[2019-04-24] MEDS: ACETAMINOPHEN 325 MG TABLET PO PRN (15:30)
[2019-04-24] MEDS: MAGNESIUM CHLORIDE 64 MG TABLET PO SCH (20:22)
[2019-04-24] MEDS: atenoloL 25 MG TABLET PO SCH (20:23)
[2019-04-24] MEDS: GABAPENTIN 100 MG CAPSULE PO SCH (20:23)
[2019-04-25] MEDS: ALBUTEROL/IPRATROPIUM 3 ML NEB RESP TX SCH ×3 (01:18→13:00)
[2019-04-25 05:12] LABS: Basophils % 0.5 % (0.0-0.8); Eosinophils # 0.5 10*3/uL (0.0-0.87); Eosinophils % 6.8 % (0.00-10.9); Hematocrit 35.9 VOL% (35.7-47.0); Hemoglobin 10.7 GM/DL (12.0-16.0); Immature Granulocytes % 0.4 %; Immature Granulocytes Absolute 0.03 #; Lymphocytes # 1.1 10*3/uL (1.4-4.0); Lymphocytes % 14.2 % (21.3-54.2); Mean Corpuscular HGB Conc 29.8 GM/DL (32-36); Mean Corpuscular Volume 85.5 FL (87-102); Mean Platelet Volume 10.4 FL (9.6-12.0); Monocytes % 12.2 % (1.7-12.7); Neutrophils % 65.9 % (38.7-73.9); Platelet Count 313 T/CUMM (130-400); Red Cell Distribution Width 14.4 % (9.3-17.3); White Blood Count 7.9 T/CUMM (4-12)
[2019-04-25 05:28] LABS: Calcium 9.2 MG/DL (8.5-10.1); Osmolality,Calculated 266.1 MOS/KG (273-304)
[2019-04-25] MEDS: POTASSIUM CHLORIDE 20 MEQ TABLET PO PRN ×2 (06:46→09:02)
[2019-04-25] MEDS: NICOTINE 21 MG/24 HR PATCH TRANSDERM SCH (08:55)
[2019-04-25] MEDS: METHADONE 10 MG TABLET PO SCH (08:55)
[2019-04-25] MEDS: POLYETHYLENE GLYCOL POWDER 17 GM PACK PO SCH (08:56)
[2019-04-25] MEDS: ENOXAPARIN 40 MG/0.4 ML SYRINGE SUBCUT SCH (08:56)
[2019-04-25] MEDS: FUROSEMIDE 20 MG TABLET PO SCH (08:56)
[2019-04-25] MEDS: CITALOPRAM 20 MG TABLET PO SCH (08:56)
[2019-04-25] MEDS: OMEPRAZOLE ODT 20 MG TABLET NG SCH (08:57)
[2019-04-25] MEDS: THEOPHYLLINE ER 300 MG TABLET PO SCH (08:57)
[2019-04-25] MEDS: AMOXICILLIN/CLAV 875 MG TABLET PO SCH (08:57)
[2019-04-25] MEDS: GABAPENTIN 300 MG CAPSULE PO SCH (09:03)
[2019-04-25] MEDS: BUDESONIDE/FORMOTEROL 160-4.5 INHALER 6 GM INH SCH (09:09)
[2019-04-25] MEDS ORDERED: POTASSIUM CHLORIDE 20 MEQ/15 ML UDCUP PO ONE (11:59)
[2019-04-25] MEDS: ACETAMINOPHEN 325 MG TABLET PO PRN (12:20)
[2019-04-25 12:40] VITALS: BP 108/62
== END 2019-04-25 14:27 | disposition home health service (06) | DRG 230 ==
LOC: EDBD → EDUNIT# → N.ED 20:02 → N.EDINP 22:58 → SUATTDRO 22:58 → N.3E 23:53 → N.ICU 04-17 11:47 → N.5E 04-19 10:33
PROVIDERS: ADMIT Internal Medicine Geriatric Medicine; ATTEND Internal Medicine

== ENCOUNTER 2019-09-22 21:17 | Inpatient (IN) ==
[2019-09-22 22:23] LABS: Basophils % 0.3 % (0.0-0.8); Eosinophils % 0.3 % (0.00-10.9); Hematocrit 35.2 VOL% (35.7-47.0); Hemoglobin 10.4 GM/DL (12.0-16.0); Immature Granulocytes % 1.1 %; Immature Granulocytes Absolute 0.13 #; Lymphocytes # 1.5 10*3/uL (1.4-4.0); Lymphocytes % 13.3 % (21.3-54.2); Mean Corpuscular HGB Conc 29.5 GM/DL (32-36); Mean Platelet Volume 8.7 FL (9.6-12.0); Monocytes % 8.4 % (1.7-12.7); Neutrophils % 76.6 % (38.7-73.9); Platelet Count 211 T/CUMM (130-400); Red Blood Count 4.24 MC/CUMM (3.8-5.5); Red Cell Distribution Width 15.3 % (9.3-17.3); White Blood Count 11.6 T/CUMM (4-12)
[2019-09-22 22:44] LABS: Alanine Aminotransferase 22 U/L (13-56); Alkaline Phosphatase 106 U/L (45-117); Aspartate Amino Transferase 18 U/L (0-37); Bilirubin,Total < 0.39 MG/DL (0.2-1.0); Blood Urea Nitrogen 22 MG/DL (7-18); Calcium 8.6 MG/DL (8.5-10.1); Estimated Glom Filtration Rate 67 ML/MIN; Glucose 81 MG/DL (74-106); Osmolality,Calculated 276.7 MOS/KG (273-304); Total Protein 6.3 G/DL (6.4-8.3)
[2019-09-22] MEDS ORDERED: KETOROLAC 30 MG/1 ML VIAL ONE (23:09)
[2019-09-22] MEDS ORDERED: KETOROLAC 30 MG/1 ML VIAL IV STA (23:12)
[2019-09-22] MEDS ORDERED: DEXAMETHASONE 4 MG/1 ML VIAL IV STA (23:50)
[2019-09-22] MEDS ORDERED: POTASSIUM CHLORIDE 20 MEQ/15 ML UDCUP PO ONE (23:50)
[2019-09-23] LABS: Apearance,Urine CLEAR (Clear); Bacteria,Urine Occasional /HPF (Few); Bilirubin,Urine Negative (Negative); Blood, Urine Negative (Negative); Glucose,Urine (UA) Negative (Negative); Ketones,Urine Negative (Negative); Nitrite,Urine Negative (Negative); Protein,Urine Negative; RBC,Urine 1 /HPF (0-4); Squamous Epithelial Cell,Urine Occasional /HPF (0-10); Urine Color Yellow (Yellow); Urine Specific Gravity 1.012 (1.001-1.035); WBC,Urine <1 /HPF (0-6)
[2019-09-23] MEDS ORDERED: ALUMINUM/MAGNES/SIMETH MAX STR 30 ML UDCUP PO PRN (00:15)
[2019-09-23] MEDS ORDERED: ACETAMINOPHEN 325 MG TABLET PO PRN (00:15)
[2019-09-23] MEDS ORDERED: ONDANSETRON 4 MG/2 ML VIAL IV PRN (00:15)
[2019-09-23] MEDS ORDERED: PROMETHAZINE 25 MG/1 ML VIAL IM PRN (00:15)
[2019-09-23] MEDS ORDERED: hydrALAZINE 20 MG/1 ML VIAL IV PRN (00:15)
[2019-09-23] MEDS ORDERED: DEXTROSE 50% 25 GM/50 ML VIAL IV PRN ×2 (00:15)
[2019-09-23] MEDS ORDERED: guaiFENesin/DM ER 600-30 MG TABLET PO PRN (00:15)
[2019-09-23] MEDS ORDERED: GLUCAGON 1 MG VIAL IM PRN ×2 (00:15)
[2019-09-23] MEDS ORDERED: diphenhydrAMINE CAP 25 MG CAPSULE PO PRN (00:15)
[2019-09-23] MEDS ORDERED: NICOTINE 21 MG/24 HR PATCH TRANSDERM PRN (00:15)
[2019-09-23] MEDS: MORPHINE 4 MG/1 ML VIAL IV PRN ×3 (02:13→20:30)
[2019-09-23 05:54] LABS: Calcium 8.8 MG/DL (8.5-10.1); Osmolality,Calculated 275.8 MOS/KG (273-304)
[2019-09-23 06:13] LABS: Basophils % 0.2 % (0.0-0.8); Eosinophils % 0.2 % (0.00-10.9); Hematocrit 35.9 VOL% (35.7-47.0); Immature Granulocytes % 1.2 %; Immature Granulocytes Absolute 0.12 #; Lymphocytes # 0.6 10*3/uL (1.4-4.0); Lymphocytes % 6.1 % (21.3-54.2); Mean Corpuscular HGB Conc 29.5 GM/DL (32-36); Mean Corpuscular Volume 82.3 FL (87-102); Mean Platelet Volume 9.5 FL (9.6-12.0); Monocytes % 3.1 % (1.7-12.7); Neutrophils % 89.2 % (38.7-73.9); Platelet Count 203 T/CUMM (130-400); Red Blood Count 4.36 MC/CUMM (3.8-5.5); Red Cell Distribution Width 15.3 % (9.3-17.3); White Blood Count 10.2 T/CUMM (4-12)
[2019-09-23 06:14] LABS: Hemoglobin 10.6 GM/DL (12.0-16.0)
[2019-09-23] MEDS: INSULIN LISPRO 100 UNIT/ML SUBCUT SCH ×4 (07:50→20:28)
[2019-09-23] MEDS ORDERED: NICOTINE 21 MG/24 HR PATCH TRANSDERM SCH (09:00)
[2019-09-23] MEDS: DOCUSATE SODIUM 100 MG CAPSULE PO SCH ×3 (09:06→20:30)
[2019-09-23] MEDS: PANTOPRAZOLE 40 MG TABLET PO SCH (09:06)
[2019-09-23] MEDS: BISACODYL 5 MG TABLET PO SCH (09:06)
[2019-09-23] MEDS: ENOXAPARIN 40 MG/0.4 ML SYRINGE SUBCUT SCH (09:07)
[2019-09-23] MEDS ORDERED: POLYVINYL ALCOHOL 1.4% OPH SOLN 15 ML BOTTLE BOTH EYES PRN (11:03)
[2019-09-23] MEDS ORDERED: DEXTROMETHORPHAN GUAIFENESIN PO PRN (11:03)
[2019-09-23] MEDS: CLORAZEPATE 3.75 MG TABLET PO PRN (13:06)
[2019-09-23] MEDS: NICOTINE 21 MG/24 HR PATCH TRANSDERM SCH (14:13)
[2019-09-23] MEDS: GABAPENTIN 300 MG CAPSULE PO SCH ×2 (14:13→20:30)
[2019-09-23] MEDS: THEOPHYLLINE ER 300 MG TABLET PO SCH (17:39)
[2019-09-23] MEDS: MAGNESIUM CHLORIDE 64 MG TABLET PO SCH (20:29)
[2019-09-23] MEDS: atenoloL 25 MG TABLET PO SCH (20:30)
[2019-09-23] MEDS: POTASSIUM CHLORIDE 10 MEQ TABLET PO SCH (20:30)
[2019-09-23] MEDS: BUDESONIDE/FORMOTEROL 160-4.5 INHALER 6 GM INH SCH (20:41)
[2019-09-24] MEDS: MORPHINE 4 MG/1 ML VIAL IV PRN ×3 (00:41→20:55)
[2019-09-24 07:00] LABS: Calcium 8.9 MG/DL (8.5-10.1); Osmolality,Calculated 282.4 MOS/KG (273-304)
[2019-09-24 07:06] LABS: Basophils % 0.2 % (0.0-0.8); Eosinophils % 0.2 % (0.00-10.9); Hematocrit 34.1 VOL% (35.7-47.0); Hemoglobin 10.2 GM/DL (12.0-16.0); Immature Granulocytes % 0.9 %; Immature Granulocytes Absolute 0.08 #; Lymphocytes # 1.4 10*3/uL (1.4-4.0); Lymphocytes % 15.9 % (21.3-54.2); Mean Corpuscular HGB Conc 29.9 GM/DL (32-36); Mean Corpuscular Volume 82.2 FL (87-102); Mean Platelet Volume 9.4 FL (9.6-12.0); Monocytes % 8.9 % (1.7-12.7); Neutrophils % 73.9 % (38.7-73.9); Platelet Count 189 T/CUMM (130-400); Red Blood Count 4.15 MC/CUMM (3.8-5.5); Red Cell Distribution Width 15.6 % (9.3-17.3); White Blood Count 8.7 T/CUMM (4-12)
[2019-09-24] MEDS ORDERED: NON-FORMULARY MEDICATION (Pantoprazole [Protonix] 40 MG) PO SCH (09:00)
[2019-09-24] MEDS: INSULIN LISPRO 100 UNIT/ML SUBCUT SCH ×4 (09:33→22:01)
[2019-09-24] MEDS: PANTOPRAZOLE 40 MG TABLET PO SCH (09:39)
[2019-09-24] MEDS: CITALOPRAM 20 MG TABLET PO SCH (09:39)
[2019-09-24] MEDS: BISACODYL 5 MG TABLET PO SCH (09:39)
[2019-09-24] MEDS: FUROSEMIDE 40 MG TABLET PO SCH (09:39)
[2019-09-24] MEDS: GABAPENTIN 300 MG CAPSULE PO SCH ×3 (09:40→20:58)
[2019-09-24] MEDS: THEOPHYLLINE ER 300 MG TABLET PO SCH ×2 (09:40→17:13)
[2019-09-24] MEDS: ENOXAPARIN 40 MG/0.4 ML SYRINGE SUBCUT SCH (09:40)
[2019-09-24] MEDS: POTASSIUM CHLORIDE 20 MEQ TABLET PO SCH (09:40)
[2019-09-24] MEDS: DOCUSATE SODIUM 100 MG CAPSULE PO SCH ×2 (09:40→20:59)
[2019-09-24] MEDS: NICOTINE 21 MG/24 HR PATCH TRANSDERM SCH (09:50)
[2019-09-24] MEDS: BUDESONIDE/FORMOTEROL 160-4.5 INHALER 6 GM INH SCH ×2 (09:50→21:03)
[2019-09-24] MEDS: METHADONE 10 MG TABLET PO SCH (20:56)
[2019-09-24] MEDS: atenoloL 25 MG TABLET PO SCH (20:58)
[2019-09-24] MEDS: ZALEPLON 5 MG CAPSULE PO PRN (20:58)
[2019-09-24] MEDS: MAGNESIUM CHLORIDE 64 MG TABLET PO SCH (20:58)
[2019-09-24] MEDS: POTASSIUM CHLORIDE 10 MEQ TABLET PO SCH (20:59)
[2019-09-24] MEDS: CLORAZEPATE 3.75 MG TABLET PO PRN (23:42)
[2019-09-25 06:33] LABS: Calcium 9.5 MG/DL (8.5-10.1); Osmolality,Calculated 285.1 MOS/KG (273-304); Risk Ratio 3.03; VLDL CHOLESTEROL 23.8 MG/DL
[2019-09-25 06:42] LABS: Basophils % 0.3 % (0.0-0.8); Eosinophils # 0.1 10*3/uL (0.0-0.87); Eosinophils % 0.5 % (0.00-10.9); Hematocrit 39.1 VOL% (35.7-47.0); Immature Granulocytes % 1.2 %; Immature Granulocytes Absolute 0.12 #; Lymphocytes # 2.3 10*3/uL (1.4-4.0); Lymphocytes % 23.3 % (21.3-54.2); Mean Corpuscular HGB Conc 29.2 GM/DL (32-36); Mean Corpuscular Volume 84.3 FL (87-102); Mean Platelet Volume 9.4 FL (9.6-12.0); Neutrophils % 62.7 % (38.7-73.9); Platelet Count 198 T/CUMM (130-400); Red Blood Count 4.64 MC/CUMM (3.8-5.5); Red Cell Distribution Width 15.8 % (9.3-17.3); White Blood Count 9.7 T/CUMM (4-12)
[2019-09-25 06:45] LABS: Hemoglobin 11.4 GM/DL (12.0-16.0)
[2019-09-25] MEDS: MORPHINE 4 MG/1 ML VIAL IV PRN ×3 (08:59→21:30)
[2019-09-25] MEDS: METHADONE 10 MG TABLET PO SCH ×2 (09:02→21:25)
[2019-09-25] MEDS: POTASSIUM CHLORIDE 20 MEQ TABLET PO SCH (09:03)
[2019-09-25] MEDS: THEOPHYLLINE ER 300 MG TABLET PO SCH ×2 (09:03→17:15)
[2019-09-25] MEDS: FUROSEMIDE 40 MG TABLET PO SCH (09:03)
[2019-09-25] MEDS: CITALOPRAM 20 MG TABLET PO SCH (09:05)
[2019-09-25] MEDS: GABAPENTIN 300 MG CAPSULE PO SCH ×3 (09:05→21:27)
[2019-09-25] MEDS: BISACODYL 5 MG TABLET PO SCH (09:05)
[2019-09-25] MEDS: DOCUSATE SODIUM 100 MG CAPSULE PO SCH ×2 (09:10→21:27)
[2019-09-25] MEDS: NICOTINE 21 MG/24 HR PATCH TRANSDERM SCH (09:11)
[2019-09-25] MEDS: INSULIN LISPRO 100 UNIT/ML SUBCUT SCH (09:11)
[2019-09-25] MEDS: PANTOPRAZOLE 40 MG TABLET PO SCH (09:14)
[2019-09-25] MEDS: CLORAZEPATE 3.75 MG TABLET PO PRN (09:28)
[2019-09-25] MEDS: BUDESONIDE/FORMOTEROL 160-4.5 INHALER 6 GM INH SCH ×2 (09:29→21:34)
[2019-09-25] MEDS ORDERED: TISSUE ADHESIVE 1 EACH APPLICATOR TOP ONE (11:13)
[2019-09-25] MEDS ORDERED: ROPIVACAINE 0.5% 30 ML VIAL ONE (11:13)
[2019-09-25] MEDS ORDERED: MIDAZOLAM 2 MG/2 ML VIAL ONE (12:42)
[2019-09-25] MEDS ORDERED: LIDOCAINE 2% 5 ML VIAL ONE (12:42)
[2019-09-25] MEDS ORDERED: fentaNYL 100 MCG/2 ML VIAL ONE (12:43)
[2019-09-25] MEDS: HYDROmorphone 2 MG/1 ML VIAL IV PRN ×4 (12:45→13:05)
[2019-09-25] MEDS ORDERED: HYDROmorphone 2 MG/1 ML VIAL ONE (12:46)
[2019-09-25] MEDS ORDERED: ONDANSETRON 4 MG/2 ML VIAL ONE (12:46)
[2019-09-25] MEDS ORDERED: ONDANSETRON 4 MG/2 ML VIAL IV PRN (13:01)
[2019-09-25] MEDS: ZALEPLON 5 MG CAPSULE PO PRN (21:24)
[2019-09-25] MEDS: atenoloL 25 MG TABLET PO SCH (21:27)
[2019-09-25] MEDS: POTASSIUM CHLORIDE 10 MEQ TABLET PO SCH (21:27)
[2019-09-25] MEDS: MAGNESIUM CHLORIDE 64 MG TABLET PO SCH (21:27)
[2019-09-26 05:18] LABS: Calcium 9.3 MG/DL (8.5-10.1); Osmolality,Calculated 277.5 MOS/KG (273-304)
[2019-09-26 05:52] LABS: Basophils % 0.3 % (0.0-0.8); Eosinophils # 0.1 10*3/uL (0.0-0.87); Eosinophils % 0.8 % (0.00-10.9); Hematocrit 39.8 VOL% (35.7-47.0); Hemoglobin 11.9 GM/DL (12.0-16.0); Immature Granulocytes Absolute 0.09 #; Lymphocytes # 1.2 10*3/uL (1.4-4.0); Lymphocytes % 13.8 % (21.3-54.2); Mean Corpuscular HGB Conc 29.9 GM/DL (32-36); Mean Corpuscular Volume 81.9 FL (87-102); Mean Platelet Volume 9.1 FL (9.6-12.0); Monocytes % 9.9 % (1.7-12.7); Neutrophils % 74.2 % (38.7-73.9); Platelet Count 175 T/CUMM (130-400); Red Blood Count 4.86 MC/CUMM (3.8-5.5); Red Cell Distribution Width 15.6 % (9.3-17.3)
[2019-09-26] MEDS: POTASSIUM CHLORIDE 20 MEQ TABLET PO SCH (08:51)
[2019-09-26] MEDS: PANTOPRAZOLE 40 MG TABLET PO SCH (08:51)
[2019-09-26] MEDS: DOCUSATE SODIUM 100 MG CAPSULE PO SCH (08:52)
[2019-09-26] MEDS: CITALOPRAM 20 MG TABLET PO SCH (08:52)
[2019-09-26] MEDS: GABAPENTIN 300 MG CAPSULE PO SCH (08:52)
[2019-09-26] MEDS: METHADONE 10 MG TABLET PO SCH (08:53)
[2019-09-26] MEDS: NICOTINE 21 MG/24 HR PATCH TRANSDERM SCH (08:56)
[2019-09-26] MEDS: ENOXAPARIN 40 MG/0.4 ML SYRINGE SUBCUT SCH (08:56)
[2019-09-26] MEDS: FUROSEMIDE 40 MG TABLET PO SCH (08:56)
[2019-09-26] MEDS: BISACODYL 5 MG TABLET PO SCH (08:59)
[2019-09-26] MEDS: THEOPHYLLINE ER 300 MG TABLET PO SCH (09:00)
[2019-09-26] MEDS: BUDESONIDE/FORMOTEROL 160-4.5 INHALER 6 GM INH SCH (09:01)
[2019-09-26] MEDS ORDERED: oxyCODONE/ACETAMINOPHEN 5-325 MG TABLET PO PRN (11:18)
[2019-09-26] MEDS: MORPHINE 4 MG/1 ML VIAL IV PRN (11:35)
[2019-09-26 11:40] VITALS: BP 120/72
== END 2019-09-26 14:25 | disposition home or self-care (01) | DRG 321 ==
LOC: EDUNIT# → EDBD → N.ED 21:17 → N.EDINP 09-23 00:15 → N.3E 09-23 01:10 → N.4E 09-24 12:58
PROVIDERS: ADMIT Internal Medicine; ATTEND Internal Medicine

== ENCOUNTER 2020-06-15 00:24 | Inpatient (IN) ==
[2020-06-15 00:48] LABS: ABG Base Excess -1.6 MMOL/L (-2.5-2.5); ABG HCO3 23.1 MMOL/L (20-26); ABG Oxygen Saturation 99.4 % (95-100); ABG TCO2 26.4 MMOL/L (23-27)
[2020-06-15] MEDS ORDERED: ETOMIDATE 20 MG/10 ML VIAL IV ONE (00:49)
[2020-06-15 00:50] LABS: ABG PH 7.197 (7.35-7.45)
[2020-06-15] MEDS ORDERED: ROCURONIUM 100 MG/10 ML VIAL IV ONE (00:50)
[2020-06-15] MEDS ORDERED: SODIUM CHLORIDE 0.9% 1,000 ML IV STA ×2 (00:51→01:31)
[2020-06-15 01:00] LABS: Basophils % 0.2 % (0.0-0.8); Immature Granulocytes % 0.3 %; Immature Granulocytes Absolute 0.06 #; Lymphocytes % 2.5 % (21.3-54.2); Red Cell Distribution Width 16.8 % (9.3-17.3)
[2020-06-15] MEDS ORDERED: ETOMIDATE 20 MG/10 ML VIAL IV STA (01:03)
[2020-06-15] MEDS ORDERED: ROCURONIUM 100 MG/10 ML VIAL IV STA (01:04)
[2020-06-15 01:05] LABS: Bilirubin,Urine Negative (Negative); Blood, Urine Large mg/dL (Negative); Glucose,Urine (UA) Negative (Negative); Ketones,Urine Negative (Negative); Mucus,Urine Occasional /LPF (Occasional); Nitrite,Urine Negative (Negative); Protein,Urine Negative; RBC,Urine 3 /HPF (0-4); Urine Appearance CLEAR (Clear); Urine Color Yellow (Yellow); Urine Specific Gravity 1.011 (1.001-1.035); WBC,Urine 1 /HPF (0-6)
[2020-06-15 01:16] LABS: Barbiturates Screen,Urine Negative (Negative); Benzodiazepines Screen,Urine Positive (Negative); Cannabinoid Screen,Urine Negative (Negative); Opiate Screen,Urine Negative (Negative); Phencyclidine Screen,Urine Negative (Negative)
[2020-06-15] MEDS ORDERED: PIPERACILLIN/TAZOBACTAM 3,375 MG in SODIUM CHLORIDE 0.9% 100 ML IV STA (01:17)
[2020-06-15 01:19] LABS: Albumin 3.6 G/DL (3.4-5.0); Bilirubin,Total 0.4 MG/DL (0.2-1.0); Calcium 8.6 MG/DL (8.5-10.1); Osmolality,Calculated 289.1 MOS/KG (273-304); Potassium 2.8 MMOL/L (3.5-5.1); Total Protein 7.2 G/DL (6.4-8.2)
[2020-06-15 01:22] LABS: Hematocrit 40.8 VOL% (35.7-47.0); Lymphocytes # 0.5 10*3/uL (1.4-4.0); Mean Corpuscular HGB Conc 27.7 GM/DL (32-36); Mean Corpuscular Volume 89.1 FL (87-102); Mean Platelet Volume 9.6 FL (9.6-12.0); Monocytes % 4.7 % (1.7-12.7); Neutrophils % 92.3 % (38.7-73.9); Platelet Count 216 T/CUMM (130-400); Red Blood Count 4.58 MC/CUMM (3.8-5.5); White Blood Count 19.4 T/CUMM (4-12)
[2020-06-15 01:24] LABS: Hemoglobin 11.3 GM/DL (12.0-16.0)
[2020-06-15] MEDS ORDERED: POTASSIUM CHLORIDE RIDER 200 ML IV ONE (01:24)
[2020-06-15] MEDS ORDERED: POTASSIUM CHLORIDE RIDER 20 MEQ in PREMIX 1 EACH IV STA (01:25)
[2020-06-15 01:28] LABS: Band Neutrophils 2 % (0-10); Lymphocytes 3 % (20-55); Platelet Estimate Normal; Segmented Neutrophils 93 % (50-85); Total Cells Counted 100
[2020-06-15] MEDS ORDERED: SODIUM CHLORIDE 0.9% 850 ML IV STA (01:31)
[2020-06-15] MEDS: POTASSIUM CHLORIDE RIDER 10 MEQ in PREMIX 1 EACH IV SCH ×2 (01:31→02:16)
[2020-06-15] MEDS ORDERED: VECURONIUM 10 MG VIAL IV ONE (01:47)
[2020-06-15] MEDS ORDERED: VECURONIUM 10 MG VIAL IV STA (01:50)
[2020-06-15 02:01] LABS: ABG Base Excess -1.4 MMOL/L (-2.5-2.5); ABG HCO3 23.3 MMOL/L (20-26); ABG Oxygen Saturation 99.9 % (95-100); ABG PCO2 65.2 MM HG (35-48); ABG PH 7.232 (7.35-7.45); ABG TCO2 25.5 MMOL/L (23-27)
[2020-06-15] MEDS: SODIUM CHLORIDE 0.9% 1,000 ML IV SCH ×2 (03:38→12:30)
[2020-06-15 05:53] LABS: Allen Test Positive; Pt O2 Delivery Device Ventilator
[2020-06-15 05:54] LABS: ABG Base Excess -1.4 MMOL/L (-2.5-2.5); ABG HCO3 23.1 MMOL/L (20-26); ABG Oxygen Saturation 93.5 % (95-100); ABG PH 7.243 (7.35-7.45); ABG PO2 70.5 MM HG (80-95); ABG TCO2 25.1 MMOL/L (23-27)
[2020-06-15] MEDS: ALBUTEROL/IPRATROPIUM 3 ML NEB RESP TX SCH ×3 (06:58→19:22)
[2020-06-15 06:59] LABS: Calcium 7.8 MG/DL (8.5-10.1); Potassium 2.8 MMOL/L (3.5-5.1)
[2020-06-15] MEDS ORDERED: POTASSIUM CHLORIDE 20 MEQ TABLET PO PRN (07:43)
[2020-06-15] MEDS: POTASSIUM CHLORIDE 20 MEQ/15 ML UDCUP PER TUBE PRN ×4 (07:54→14:35)
[2020-06-15] MEDS ORDERED: DEXTROSE 50% 25 GM/50 ML VIAL IV PRN (08:37)
[2020-06-15] MEDS ORDERED: GLUCAGON 1 MG VIAL IM PRN (08:37)
[2020-06-15] MEDS: ENOXAPARIN 40 MG/0.4 ML SYRINGE SUBCUT SCH (08:37)
[2020-06-15] MEDS: PIPERACILLIN/TAZOBACTAM 3,375 MG in SODIUM CHLORIDE 0.9% 100 ML IV SCH ×2 (08:44→16:51)
[2020-06-15] MEDS ORDERED: PANTOPRAZOLE 40 MG VIAL IV SCH (09:00)
[2020-06-15] MEDS ORDERED: MAGNESIUM SULF RIDER 2 GM in PREMIX 1 EACH IV ONE (09:00)
[2020-06-15 09:27] LABS: ABG Base Excess -0.1 MMOL/L (-2.5-2.5); ABG HCO3 24.4 MMOL/L (20-26); ABG Oxygen Saturation 97.1 % (95-100); ABG PCO2 44.3 MM HG (35-48); ABG PH 7.368 (7.35-7.45); ABG PO2 77.5 MM HG (80-95); ABG TCO2 23.1 MMOL/L (23-27); Pt O2 Delivery Device Ventilator
[2020-06-15] MEDS: ERGOCALCIFEROL 50,000 UNIT CAPSULE PO SCH (09:49)
[2020-06-15] MEDS: METHADONE 10 MG TABLET PER TUBE SCH (09:49)
[2020-06-15] MEDS: acetaZOLAMIDE 250 MG TABLET PER TUBE SCH ×4 (09:50→21:03)
[2020-06-15] MEDS: POTASSIUM CHLORIDE 20 MEQ TABLET PO SCH ×2 (09:50→21:03)
[2020-06-15] MEDS: LEVOFLOXACIN 750 MG TABLET PER TUBE SCH (09:52)
[2020-06-15] MEDS: FAMOTIDINE 8 MG/ML 50 ML/BOTTLE PO SCH ×2 (10:07→21:03)
[2020-06-15] MEDS: INSULIN LISPRO 100 UNIT/ML SUBCUT SCH ×2 (12:30→18:01)
[2020-06-15] MEDS: LORazepam 1 MG TABLET PO PRN (14:35)
[2020-06-15] MEDS: DEXMEDETOMIDINE 200 MCG in SODIUM CHLORIDE 0.9% 48 ML IV PRN ×2 (16:38→20:40)
[2020-06-15] MEDS ORDERED: MIDAZOLAM 100 MG in SODIUM CHLORIDE 0.9% 80 ML IV PRN (21:09)
[2020-06-15] MEDS: ALBUTEROL 2.5 MG/3 ML NEB RESP TX PRN (23:18)
[2020-06-15] MEDS ORDERED: fentaNYL 100 MCG/2 ML VIAL IV PRN (23:21)
[2020-06-16] MEDS: INSULIN LISPRO 100 UNIT/ML SUBCUT SCH ×4 (00:29→18:10)
[2020-06-16] MEDS: ALBUTEROL/IPRATROPIUM 3 ML NEB RESP TX SCH ×4 (01:22→19:16)
[2020-06-16] MEDS ORDERED: PHENYLEPHRINE DRIP 40 MG/250 ML PREMIX IV PRN (01:32)
[2020-06-16] MEDS: PIPERACILLIN/TAZOBACTAM 3,375 MG in SODIUM CHLORIDE 0.9% 100 ML IV SCH ×3 (02:30→18:00)
[2020-06-16] MEDS ORDERED: methylPREDNISolone SOD SUC 125 MG/2 ML VIAL IV ONE (03:05)
[2020-06-16] MEDS ORDERED: methylPREDNISolone SOD SUC 125 MG/2 ML VIAL ONE (03:05)
[2020-06-16] MEDS: ALBUTEROL 2.5 MG/3 ML NEB RESP TX PRN (03:15)
[2020-06-16] MEDS ORDERED: ROCURONIUM 100 MG/10 ML VIAL IV ONE ×2 (03:22→03:24)
[2020-06-16] MEDS ORDERED: ROCURONIUM 500 MG in SODIUM CHLORIDE 0.9% 500 ML IV PRN (03:29)
[2020-06-16] MEDS ORDERED: FUROSEMIDE 40 MG/4 ML VIAL IV ONE (03:29)
[2020-06-16 04:11] LABS: Albumin 2.5 G/DL (3.4-5.0); Calcium 8.4 MG/DL (8.5-10.1); Osmolality,Calculated 290.7 MOS/KG (273-304); Potassium 3.6 MMOL/L (3.5-5.1); Total Protein 5.8 G/DL (6.4-8.2)
[2020-06-16 04:31] LABS: Basophils # 0.1 10*3/uL (0.0-0.2); Basophils % 0.3 % (0.0-0.8); Eosinophils # 0.2 10*3/uL (0.0-0.87); Eosinophils % 0.9 % (0.00-10.9); Hematocrit 36.8 VOL% (35.7-47.0); Hemoglobin 10.4 GM/DL (12.0-16.0); Immature Granulocytes % 1.3 %; Immature Granulocytes Absolute 0.27 #; Lymphocytes # 1.8 10*3/uL (1.4-4.0); Lymphocytes % 9.1 % (21.3-54.2); Mean Corpuscular HGB Conc 28.3 GM/DL (32-36); Mean Corpuscular Volume 88.2 FL (87-102); Mean Platelet Volume 10.1 FL (9.6-12.0); Monocytes % 6.6 % (1.7-12.7); Neutrophils % 81.8 % (38.7-73.9); Platelet Count 199 T/CUMM (130-400); Red Blood Count 4.17 MC/CUMM (3.8-5.5); Red Cell Distribution Width 17.1 % (9.3-17.3); White Blood Count 20.2 T/CUMM (4-12)
[2020-06-16 04:36] LABS: Band Neutrophils 5 % (0-10); Lymphocytes 6 % (20-55); Segmented Neutrophils 82 % (50-85); Total Cells Counted 100
[2020-06-16 04:37] LABS: Hypochromasia 1+; Microcytosis 1+; Platelet Estimate Adequate
[2020-06-16 04:48] LABS: ABG Base Excess -0.1 MMOL/L (-2.5-2.5); ABG HCO3 24.3 MMOL/L (20-26); ABG Oxygen Saturation 96.7 % (95-100); ABG PCO2 53.6 MM HG (35-48); ABG PO2 85.7 MM HG (80-95); ABG TCO2 24.4 MMOL/L (23-27); Allen Test Positive; Pt O2 Delivery Device Ventilator
[2020-06-16] MEDS: POTASSIUM CHLORIDE 20 MEQ/15 ML UDCUP PER TUBE PRN ×2 (06:20→09:00)
[2020-06-16] MEDS ORDERED: CYANOCOBALAMIN 1000 MCG/1 ML VIAL IM ONE (09:02)
[2020-06-16] MEDS: POTASSIUM CHLORIDE 20 MEQ TABLET PO SCH ×2 (09:47→21:17)
[2020-06-16] MEDS: methylPREDNISolone SOD SUC 40 MG/1 ML VIAL IV SCH ×2 (09:47→16:48)
[2020-06-16] MEDS: LEVOFLOXACIN 750 MG TABLET PER TUBE SCH (09:47)
[2020-06-16] MEDS: METHADONE 10 MG TABLET PER TUBE SCH (09:47)
[2020-06-16] MEDS: ENOXAPARIN 40 MG/0.4 ML SYRINGE SUBCUT SCH (09:47)
[2020-06-16] MEDS: FAMOTIDINE 8 MG/ML 50 ML/BOTTLE PO SCH ×2 (09:48→21:17)
[2020-06-16] MEDS ORDERED: POTASSIUM PHOSPHATE 40 MMOL in SODIUM CHLORIDE 0.9% 250 ML IV ONE (10:00)
[2020-06-16] MEDS: acetaZOLAMIDE 250 MG TABLET PER TUBE SCH (10:09)
[2020-06-17] MEDS: ALBUTEROL/IPRATROPIUM 3 ML NEB RESP TX SCH ×4 (00:17→19:38)
[2020-06-17] MEDS: INSULIN LISPRO 100 UNIT/ML SUBCUT SCH ×4 (01:00→18:27)
[2020-06-17] MEDS: methylPREDNISolone SOD SUC 40 MG/1 ML VIAL IV SCH ×3 (01:56→18:26)
[2020-06-17] MEDS: PIPERACILLIN/TAZOBACTAM 3,375 MG in SODIUM CHLORIDE 0.9% 100 ML IV SCH ×3 (01:58→18:26)
[2020-06-17 05:08] LABS: Hematocrit 34.6 VOL% (35.7-47.0); Immature Granulocytes Absolute 0.13 #; Lymphocytes # 0.4 10*3/uL (1.4-4.0); Lymphocytes % 2.8 % (21.3-54.2); Mean Corpuscular HGB Conc 28.9 GM/DL (32-36); Mean Platelet Volume 10.1 FL (9.6-12.0); Monocytes % 3.4 % (1.7-12.7); Neutrophils % 92.8 % (38.7-73.9); Platelet Count 169 T/CUMM (130-400); Red Blood Count 4.07 MC/CUMM (3.8-5.5); Red Cell Distribution Width 17.1 % (9.3-17.3); White Blood Count 12.5 T/CUMM (4-12)
[2020-06-17 05:11] LABS: Band Neutrophils 1 % (0-10); Lymphocytes 2 % (20-55); Platelet Estimate Normal; Segmented Neutrophils 95 % (50-85); Total Cells Counted 100
[2020-06-17 05:11] LABS: Albumin 2.4 G/DL (3.4-5.0); Bilirubin,Total 1.4 MG/DL (0.2-1.0); Calcium 8.8 MG/DL (8.5-10.1); Osmolality,Calculated 294.7 MOS/KG (273-304); Potassium 3.3 MMOL/L (3.5-5.1)
[2020-06-17 05:21] LABS: ABG Base Excess 1.6 MMOL/L (-2.5-2.5); ABG HCO3 25.9 MMOL/L (20-26); ABG PCO2 44.4 MM HG (35-48); ABG PH 7.391 (7.35-7.45); ABG TCO2 24.4 MMOL/L (23-27)
[2020-06-17] MEDS ORDERED: FUROSEMIDE 40 MG/4 ML VIAL IV ONE (08:00)
[2020-06-17 09:35] LABS: PT Patient Result 11.1 SECS (9.8-11.9); Partial Thromboplastin Time 27.7 SECS (23.9-33.8)
[2020-06-17] MEDS ORDERED: AMINOPHYLLINE 250 MG in SODIUM CHLORIDE 0.9% 100 ML IV ONE (10:00)
[2020-06-17] MEDS: ENOXAPARIN 40 MG/0.4 ML SYRINGE SUBCUT SCH (10:09)
[2020-06-17] MEDS: METHADONE 10 MG TABLET PER TUBE SCH (10:09)
[2020-06-17] MEDS: POTASSIUM CHLORIDE 20 MEQ TABLET PO SCH ×2 (10:09→21:15)
[2020-06-17] MEDS: LEVOFLOXACIN 750 MG TABLET PER TUBE SCH (10:09)
[2020-06-17] MEDS: FAMOTIDINE 8 MG/ML 50 ML/BOTTLE PO SCH ×2 (10:09→21:16)
[2020-06-17] MEDS: AMINOPHYLLINE 500 MG in SODIUM CHLORIDE 0.9% 480 ML IV SCH (14:43)
[2020-06-18] MEDS: INSULIN LISPRO 100 UNIT/ML SUBCUT SCH ×5 (00:26→23:52)
[2020-06-18] MEDS: ALBUTEROL/IPRATROPIUM 3 ML NEB RESP TX SCH ×4 (00:41→18:04)
[2020-06-18] MEDS: methylPREDNISolone SOD SUC 40 MG/1 ML VIAL IV SCH ×4 (00:42→23:52)
[2020-06-18] MEDS: PIPERACILLIN/TAZOBACTAM 3,375 MG in SODIUM CHLORIDE 0.9% 100 ML IV SCH ×3 (04:07→17:50)
[2020-06-18 04:20] LABS: ABG Base Excess 4.1 MMOL/L (-2.5-2.5); ABG HCO3 28.1 MMOL/L (20-26); ABG Oxygen Saturation 98.5 % (95-100); ABG PCO2 55.3 MM HG (35-48); ABG PH 7.355 (7.35-7.45); ABG TCO2 27.8 MMOL/L (23-27); Allen Test Positive; Pt O2 Delivery Device Ventilator
[2020-06-18 05:52] LABS: Alanine Aminotransferase 9 U/L (13-56); Albumin 2.5 G/DL (3.4-5.0); Alkaline Phosphatase 83 U/L (45-117); Aspartate Amino Transferase 12 U/L (0-37); Bilirubin,Total < 0.39 MG/DL (0.2-1.0); Blood Urea Nitrogen 36 MG/DL (7-18); Calcium 8.6 MG/DL (8.5-10.1); Carbon Dioxide 27 MMOL/L (21-32); Estimated Glom Filtration Rate 90 ML/MIN; Glucose 170 MG/DL (74-106); Osmolality,Calculated 307.1 MOS/KG (273-304); Potassium 3.3 MMOL/L (3.5-5.1); Sodium 149 MMOL/L (136-145); Total Protein 5.2 G/DL (6.4-8.2)
[2020-06-18 06:44] LABS: Basophils % 0.1 % (0.0-0.8); Hematocrit 34.7 VOL% (35.7-47.0); Immature Granulocytes % 1.1 %; Immature Granulocytes Absolute 0.19 #; Lymphocytes # 0.4 10*3/uL (1.4-4.0); Lymphocytes % 2.3 % (21.3-54.2); Mean Corpuscular HGB Conc 28.8 GM/DL (32-36); Mean Corpuscular Volume 85.9 FL (87-102); Mean Platelet Volume 10.2 FL (9.6-12.0); NRBC # 0.04 10*3/uL; Neutrophils % 93.5 % (38.7-73.9); Platelet Count 191 T/CUMM (130-400); Red Blood Count 4.04 MC/CUMM (3.8-5.5); Red Cell Distribution Width 17.2 % (9.3-17.3); White Blood Count 16.8 T/CUMM (4-12)
[2020-06-18 06:59] LABS: Band Neutrophils 4 % (0-10); Hypochromasia 1+; Lymphocytes 3 % (20-55); Microcytosis 1+; Nucleated Red Blood Cells 1 (0-5); Ovalocytes Slight; Segmented Neutrophils 90 % (50-85); Total Cells Counted 100
[2020-06-18] MEDS: ENOXAPARIN 40 MG/0.4 ML SYRINGE SUBCUT SCH (08:45)
[2020-06-18] MEDS: FAMOTIDINE 8 MG/ML 50 ML/BOTTLE PO SCH ×2 (08:45→20:57)
[2020-06-18] MEDS: METHADONE 10 MG TABLET PER TUBE SCH (08:45)
[2020-06-18] MEDS: LEVOFLOXACIN 750 MG TABLET PER TUBE SCH (08:45)
[2020-06-18] MEDS: POTASSIUM CHLORIDE 20 MEQ TABLET PO SCH ×2 (08:45→20:56)
[2020-06-18] MEDS: FERRIC GLUCONATE COMPLEX 125 MG in SODIUM CHLORIDE 0.9% 100 ML IV SCH (10:25)
[2020-06-18] MEDS: POTASSIUM CHLORIDE 20 MEQ/15 ML UDCUP PER TUBE PRN ×2 (10:25→13:20)
[2020-06-18] MEDS: AMINOPHYLLINE 500 MG in SODIUM CHLORIDE 0.9% 480 ML IV SCH (15:45)
[2020-06-19] MEDS: ALBUTEROL/IPRATROPIUM 3 ML NEB RESP TX SCH ×4 (00:36→19:48)
[2020-06-19] MEDS: PIPERACILLIN/TAZOBACTAM 3,375 MG in SODIUM CHLORIDE 0.9% 100 ML IV SCH ×3 (02:08→17:20)
[2020-06-19 03:05] LABS: ABG Base Excess 1.6 MMOL/L (-2.5-2.5); ABG Oxygen Saturation 98.8 % (95-100); ABG PCO2 53.2 MM HG (35-48); ABG PH 7.339 (7.35-7.45); ABG PO2 167.8 MM HG (80-95); ABG TCO2 29.6 MMOL/L (23-27); Allen Test Positive; Pt O2 Delivery Device Ventilator
[2020-06-19 05:44] LABS: Hematocrit 33.1 VOL% (35.7-47.0); Hemoglobin 9.8 GM/DL (12.0-16.0); Immature Granulocytes % 0.7 %; Immature Granulocytes Absolute 0.05 #; Lymphocytes # 0.5 10*3/uL (1.4-4.0); Lymphocytes % 6.8 % (21.3-54.2); Mean Corpuscular HGB Conc 29.6 GM/DL (32-36); Mean Corpuscular Volume 84.9 FL (87-102); Mean Platelet Volume 10.7 FL (9.6-12.0); Monocytes % 5.4 % (1.7-12.7); Neutrophils % 87.1 % (38.7-73.9); Platelet Count 169 T/CUMM (130-400); Red Cell Distribution Width 17.2 % (9.3-17.3); White Blood Count 7.2 T/CUMM (4-12)
[2020-06-19 05:47] LABS: Calcium 9.3 MG/DL (8.5-10.1); Osmolality,Calculated 317.6 MOS/KG (273-304); Potassium 3.7 MMOL/L (3.5-5.1)
[2020-06-19] MEDS: INSULIN LISPRO 100 UNIT/ML SUBCUT SCH ×3 (06:03→17:35)
[2020-06-19] MEDS: LORazepam 1 MG TABLET PO PRN ×3 (07:00→21:05)
[2020-06-19] MEDS: LEVOFLOXACIN 750 MG TABLET PER TUBE SCH (09:00)
[2020-06-19] MEDS: ENOXAPARIN 40 MG/0.4 ML SYRINGE SUBCUT SCH (09:00)
[2020-06-19] MEDS: FERRIC GLUCONATE COMPLEX 125 MG in SODIUM CHLORIDE 0.9% 100 ML IV SCH (09:00)
[2020-06-19] MEDS: POTASSIUM CHLORIDE 20 MEQ TABLET PO SCH ×2 (09:00→20:56)
[2020-06-19] MEDS: METHADONE 10 MG TABLET PER TUBE SCH (09:00)
[2020-06-19] MEDS: methylPREDNISolone SOD SUC 40 MG/1 ML VIAL IV SCH ×2 (09:00→17:20)
[2020-06-19] MEDS: FAMOTIDINE 8 MG/ML 50 ML/BOTTLE PO SCH ×2 (10:10→20:56)
[2020-06-19] MEDS: THEOPHYLLINE 5.33 MG/ML 30 ML/BOTTLE PER TUBE SCH ×3 (10:10→20:56)
[2020-06-20] MEDS: INSULIN LISPRO 100 UNIT/ML SUBCUT SCH ×4 (00:43→17:27)
[2020-06-20] MEDS: methylPREDNISolone SOD SUC 40 MG/1 ML VIAL IV SCH ×3 (00:44→16:02)
[2020-06-20] MEDS: PIPERACILLIN/TAZOBACTAM 3,375 MG in SODIUM CHLORIDE 0.9% 100 ML IV SCH ×2 (00:47→11:22)
[2020-06-20] MEDS: ALBUTEROL/IPRATROPIUM 3 ML NEB RESP TX SCH ×4 (00:56→19:32)
[2020-06-20] MEDS: LORazepam 1 MG TABLET PO PRN (01:32)
[2020-06-20 02:58] LABS: ABG Base Excess 0.4 MMOL/L (-2.5-2.5); ABG HCO3 24.7 MMOL/L (20-26); ABG PCO2 46.3 MM HG (35-48); ABG TCO2 23.8 MMOL/L (23-27); Pt O2 Delivery Device Ventilator
[2020-06-20] MEDS: THEOPHYLLINE 5.33 MG/ML 30 ML/BOTTLE PER TUBE SCH ×4 (04:14→21:36)
[2020-06-20 05:59] LABS: Calcium 9.3 MG/DL (8.5-10.1); Potassium 3.9 MMOL/L (3.5-5.1)
[2020-06-20 06:15] LABS: Basophils % 0.1 % (0.0-0.8); Hematocrit 34.9 VOL% (35.7-47.0); Hemoglobin 10.1 GM/DL (12.0-16.0); Immature Granulocytes % 1.7 %; Immature Granulocytes Absolute 0.17 #; Lymphocytes # 0.5 10*3/uL (1.4-4.0); Lymphocytes % 5.1 % (21.3-54.2); Mean Corpuscular HGB Conc 28.9 GM/DL (32-36); Mean Corpuscular Volume 84.9 FL (87-102); Mean Platelet Volume 10.1 FL (9.6-12.0); Monocytes % 4.5 % (1.7-12.7); Neutrophils % 88.6 % (38.7-73.9); Platelet Count 167 T/CUMM (130-400); Red Blood Count 4.11 MC/CUMM (3.8-5.5); Red Cell Distribution Width 17.3 % (9.3-17.3); White Blood Count 9.8 T/CUMM (4-12)
[2020-06-20] MEDS: ACETAMINOPHEN 325 MG TABLET PO PRN ×2 (09:44→16:28)
[2020-06-20] MEDS: POTASSIUM CHLORIDE 20 MEQ TABLET PO SCH ×2 (09:44→21:36)
[2020-06-20] MEDS: METHADONE 10 MG TABLET PER TUBE SCH (09:44)
[2020-06-20] MEDS: LEVOFLOXACIN 750 MG TABLET PER TUBE SCH (09:45)
[2020-06-20] MEDS: ENOXAPARIN 40 MG/0.4 ML SYRINGE SUBCUT SCH (09:45)
[2020-06-20] MEDS: guaiFENesin/DM ER 600-30 MG TABLET PO PRN (09:45)
[2020-06-20] MEDS: POTASSIUM CHLORIDE 20 MEQ/15 ML UDCUP PER TUBE PRN (09:45)
[2020-06-20] MEDS: FAMOTIDINE 8 MG/ML 50 ML/BOTTLE PO SCH ×2 (09:47→21:36)
[2020-06-20] MEDS: NICOTINE 21 MG/24 HR PATCH TRANSDERM PRN (09:50)
[2020-06-20] MEDS: FERRIC GLUCONATE COMPLEX 125 MG in SODIUM CHLORIDE 0.9% 100 ML IV SCH (10:05)
[2020-06-20 14:17] LABS: Bilirubin,Urine Negative (Negative); Blood, Urine Small mg/dL (Negative); Glucose,Urine (UA) Negative (Negative); Ketones,Urine Negative (Negative); Mucus,Urine Occasional /LPF (Occasional); Nitrite,Urine Negative (Negative); Protein,Urine Negative; RBC,Urine 40 /HPF (0-4); Urine Appearance CLEAR (Clear); Urine Color Yellow (Yellow); Urine Specific Gravity 1.021 (1.001-1.035); Urine Urobilinogen < 2.0 EU/DL (0.2-1.0); WBC,Urine 4 /HPF (0-6)
[2020-06-20] MEDS: VANCOMYCIN INJ 1,500 MG in SODIUM CHLORIDE 0.9% 500 ML IV SCH (14:37)
[2020-06-21] MEDS: methylPREDNISolone SOD SUC 40 MG/1 ML VIAL IV SCH ×3 (00:05→16:18)
[2020-06-21] MEDS: INSULIN LISPRO 100 UNIT/ML SUBCUT SCH ×4 (00:05→17:57)
[2020-06-21] MEDS: ALBUTEROL/IPRATROPIUM 3 ML NEB RESP TX SCH ×4 (00:36→19:20)
[2020-06-21] MEDS: VANCOMYCIN INJ 1,500 MG in SODIUM CHLORIDE 0.9% 500 ML IV SCH ×2 (02:06→14:29)
[2020-06-21] MEDS: THEOPHYLLINE 5.33 MG/ML 30 ML/BOTTLE PER TUBE SCH ×4 (02:07→20:10)
[2020-06-21 04:20] LABS: ABG Base Excess -0.4 MMOL/L (-2.5-2.5); ABG HCO3 24.1 MMOL/L (20-26); ABG Oxygen Saturation 98.7 % (95-100); ABG PCO2 36.9 MM HG (35-48); ABG PH 7.417 (7.35-7.45); ABG TCO2 21.4 MMOL/L (23-27); Allen Test Positive; Pt O2 Delivery Device Ventilator
[2020-06-21 06:49] LABS: Basophils % 0.1 % (0.0-0.8); Hematocrit 34.9 VOL% (35.7-47.0); Hemoglobin 10.3 GM/DL (12.0-16.0); Immature Granulocytes % 2.4 %; Immature Granulocytes Absolute 0.29 #; Lymphocytes # 0.8 10*3/uL (1.4-4.0); Lymphocytes % 6.4 % (21.3-54.2); Mean Corpuscular HGB Conc 29.5 GM/DL (32-36); Mean Corpuscular Volume 83.1 FL (87-102); Mean Platelet Volume 9.7 FL (9.6-12.0); Monocytes % 4.6 % (1.7-12.7); Neutrophils % 86.5 % (38.7-73.9); Platelet Count 188 T/CUMM (130-400); White Blood Count 11.9 T/CUMM (4-12)
[2020-06-21 07:11] LABS: Calcium 9.2 MG/DL (8.5-10.1); Osmolality,Calculated 293.1 MOS/KG (273-304)
[2020-06-21] MEDS: POTASSIUM CHLORIDE 20 MEQ TABLET PO SCH ×2 (08:47→20:10)
[2020-06-21] MEDS: LEVOFLOXACIN 750 MG TABLET PER TUBE SCH (08:47)
[2020-06-21] MEDS: METHADONE 10 MG TABLET PER TUBE SCH (08:47)
[2020-06-21] MEDS: NICOTINE 21 MG/24 HR PATCH TRANSDERM PRN (08:48)
[2020-06-21] MEDS: ENOXAPARIN 40 MG/0.4 ML SYRINGE SUBCUT SCH (08:49)
[2020-06-21] MEDS: FAMOTIDINE 8 MG/ML 50 ML/BOTTLE PO SCH ×2 (08:49→20:10)
[2020-06-21] MEDS ORDERED: DEXMEDETOMIDINE 200 MCG in SODIUM CHLORIDE 0.9% 48 ML IV PRN (09:43)
[2020-06-21] MEDS: FERRIC GLUCONATE COMPLEX 125 MG in SODIUM CHLORIDE 0.9% 100 ML IV SCH (10:03)
[2020-06-21] MEDS: hydrALAZINE 20 MG/1 ML VIAL IV PRN (12:42)
[2020-06-21] MEDS: DEXMEDETOMIDINE 400 MCG in SODIUM CHLORIDE 0.9% 96 ML IV PRN ×2 (13:15→18:46)
[2020-06-22] MEDS ORDERED: ALBUTEROL/IPRATROPIUM 3 ML NEB RESP TX ONE (00:01)
[2020-06-22] MEDS: ALBUTEROL/IPRATROPIUM 3 ML NEB RESP TX SCH ×4 (00:08→19:25)
[2020-06-22] MEDS: DEXMEDETOMIDINE 400 MCG in SODIUM CHLORIDE 0.9% 96 ML IV PRN ×4 (01:02→21:49)
[2020-06-22] MEDS: methylPREDNISolone SOD SUC 40 MG/1 ML VIAL IV SCH ×3 (01:13→17:34)
[2020-06-22] MEDS: INSULIN LISPRO 100 UNIT/ML SUBCUT SCH ×4 (01:13→17:50)
[2020-06-22] MEDS: VANCOMYCIN INJ 1,500 MG in SODIUM CHLORIDE 0.9% 500 ML IV SCH ×2 (02:45→13:43)
[2020-06-22] MEDS: THEOPHYLLINE 5.33 MG/ML 30 ML/BOTTLE PER TUBE SCH ×4 (04:23→21:46)
[2020-06-22 04:36] LABS: ABG Base Excess -2.2 MMOL/L (-2.5-2.5); ABG HCO3 22.6 MMOL/L (20-26); ABG Oxygen Saturation 99.2 % (95-100); ABG PCO2 32.5 MM HG (35-48); ABG PH 7.425 (7.35-7.45); ABG TCO2 18.6 MMOL/L (23-27); Allen Test Positive; Pt O2 Delivery Device Ventilator
[2020-06-22 06:51] LABS: Basophils % 0.2 % (0.0-0.8); Eosinophils % 0.1 % (0.00-10.9); Hematocrit 40.1 VOL% (35.7-47.0); Hemoglobin 12.1 GM/DL (12.0-16.0); Immature Granulocytes Absolute 0.26 #; Lymphocytes # 0.7 10*3/uL (1.4-4.0); Lymphocytes % 4.9 % (21.3-54.2); Mean Corpuscular HGB Conc 30.2 GM/DL (32-36); Mean Corpuscular Volume 80.4 FL (87-102); Mean Platelet Volume 10.2 FL (9.6-12.0); Monocytes % 4.2 % (1.7-12.7); Neutrophils % 88.6 % (38.7-73.9); Platelet Count 156 T/CUMM (130-400); Red Blood Count 4.99 MC/CUMM (3.8-5.5); Red Cell Distribution Width 16.3 % (9.3-17.3); White Blood Count 13.2 T/CUMM (4-12)
[2020-06-22 07:29] LABS: Osmolality,Calculated 287.7 MOS/KG (273-304); Potassium 3.9 MMOL/L (3.5-5.1)
[2020-06-22 07:49] LABS: Anisocytosis 1+; Band Neutrophils 7 % (0-10); Burr Cells Few; Lymphocytes 5 % (20-55); Metamyelocytes 1 %; Ovalocytes Few; Platelet Estimate Normal; Segmented Neutrophils 85 % (50-85); Total Cells Counted 100
[2020-06-22] MEDS: LEVOFLOXACIN 750 MG TABLET PER TUBE SCH (08:20)
[2020-06-22] MEDS: POTASSIUM CHLORIDE 20 MEQ TABLET PO SCH ×2 (08:20→21:49)
[2020-06-22] MEDS: ENOXAPARIN 40 MG/0.4 ML SYRINGE SUBCUT SCH (08:21)
[2020-06-22] MEDS: ERGOCALCIFEROL 50,000 UNIT CAPSULE PO SCH (08:21)
[2020-06-22] MEDS: METHADONE 10 MG TABLET PER TUBE SCH (08:21)
[2020-06-22] MEDS: FERRIC GLUCONATE COMPLEX 125 MG in SODIUM CHLORIDE 0.9% 100 ML IV SCH (08:22)
[2020-06-22] MEDS: FAMOTIDINE 8 MG/ML 50 ML/BOTTLE PO SCH ×2 (08:22→21:46)
[2020-06-22] MEDS: LORazepam 1 MG TABLET PO PRN (12:26)
[2020-06-23] MEDS: INSULIN LISPRO 100 UNIT/ML SUBCUT SCH ×4 (00:39→18:20)
[2020-06-23] MEDS: methylPREDNISolone SOD SUC 40 MG/1 ML VIAL IV SCH ×3 (00:39→15:51)
[2020-06-23] MEDS: ALBUTEROL/IPRATROPIUM 3 ML NEB RESP TX SCH ×4 (01:06→18:14)
[2020-06-23] MEDS: THEOPHYLLINE 5.33 MG/ML 30 ML/BOTTLE PER TUBE SCH ×4 (02:53→21:21)
[2020-06-23] MEDS: DEXMEDETOMIDINE 400 MCG in SODIUM CHLORIDE 0.9% 96 ML IV PRN ×3 (04:49→17:11)
[2020-06-23 04:55] LABS: ABG HCO3 19.9 MMOL/L (20-26); ABG Oxygen Saturation 98.4 % (95-100); ABG PCO2 29.3 MM HG (35-48); ABG PO2 118.7 MM HG (80-95); ABG TCO2 20.8 MMOL/L (23-27)
[2020-06-23 04:57] LABS: Allen Test Positive; Pt O2 Delivery Device Ventilator
[2020-06-23 07:24] LABS: Basophils % 0.2 % (0.0-0.8); Eosinophils % 0.2 % (0.00-10.9); Hematocrit 38.7 VOL% (35.7-47.0); Immature Granulocytes % 2.1 %; Immature Granulocytes Absolute 0.27 #; Lymphocytes # 1.6 10*3/uL (1.4-4.0); Lymphocytes % 12.4 % (21.3-54.2); Mean Corpuscular Volume 80.5 FL (87-102); Mean Platelet Volume 11.2 FL (9.6-12.0); Monocytes % 7.6 % (1.7-12.7); Neutrophils % 77.5 % (38.7-73.9); Platelet Count 156 T/CUMM (130-400); Red Blood Count 4.81 MC/CUMM (3.8-5.5); Red Cell Distribution Width 16.7 % (9.3-17.3); White Blood Count 12.9 T/CUMM (4-12)
[2020-06-23 07:42] LABS: Calcium 8.6 MG/DL (8.5-10.1); Osmolality,Calculated 284.4 MOS/KG (273-304); Potassium 3.7 MMOL/L (3.5-5.1)
[2020-06-23 07:54] LABS: Anisocytosis 1+; Ovalocytes Few; Platelet Estimate Normal
[2020-06-23] MEDS: FERRIC GLUCONATE COMPLEX 125 MG in SODIUM CHLORIDE 0.9% 100 ML IV SCH (08:21)
[2020-06-23] MEDS: ENOXAPARIN 40 MG/0.4 ML SYRINGE SUBCUT SCH (08:22)
[2020-06-23] MEDS: POTASSIUM CHLORIDE 20 MEQ TABLET PO SCH ×2 (08:22→21:21)
[2020-06-23] MEDS: FAMOTIDINE 8 MG/ML 50 ML/BOTTLE PO SCH ×2 (08:26→21:21)
[2020-06-23] MEDS: MEROPENEM 500 MG in SODIUM CHLORIDE 0.9% 100 ML IV SCH ×3 (11:16→21:21)
[2020-06-23] MEDS: VANCOMYCIN INJ 1,500 MG in SODIUM CHLORIDE 0.9% 500 ML IV SCH (15:14)
[2020-06-24] MEDS: INSULIN LISPRO 100 UNIT/ML SUBCUT SCH ×5 (00:05→23:32)
[2020-06-24] MEDS: methylPREDNISolone SOD SUC 40 MG/1 ML VIAL IV SCH ×4 (00:05→23:32)
[2020-06-24] MEDS: ALBUTEROL/IPRATROPIUM 3 ML NEB RESP TX SCH ×4 (00:08→20:14)
[2020-06-24 03:28] LABS: ABG Base Excess -4.1 MMOL/L (-2.5-2.5); ABG HCO3 18.4 MMOL/L (20-26); ABG Oxygen Saturation 98.3 % (95-100); ABG PCO2 27.2 MM HG (35-48); ABG PH 7.449 (7.35-7.45); ABG PO2 120.5 MM HG (80-95); ABG TCO2 19.3 MMOL/L (23-27)
[2020-06-24] MEDS: MEROPENEM 500 MG in SODIUM CHLORIDE 0.9% 100 ML IV SCH ×4 (04:26→21:54)
[2020-06-24] MEDS: THEOPHYLLINE 5.33 MG/ML 30 ML/BOTTLE PER TUBE SCH ×4 (04:26→20:40)
[2020-06-24 05:58] LABS: Basophils % 0.2 % (0.0-0.8); Hematocrit 39.6 VOL% (35.7-47.0); Hemoglobin 12.4 GM/DL (12.0-16.0); Immature Granulocytes Absolute 0.11 #; Lymphocytes # 0.4 10*3/uL (1.4-4.0); Lymphocytes % 3.3 % (21.3-54.2); Mean Corpuscular HGB Conc 31.3 GM/DL (32-36); Mean Corpuscular Volume 79.4 FL (87-102); Mean Platelet Volume 10.7 FL (9.6-12.0); Neutrophils % 93.5 % (38.7-73.9); Platelet Count 220 T/CUMM (130-400); Red Blood Count 4.99 MC/CUMM (3.8-5.5); Red Cell Distribution Width 16.6 % (9.3-17.3); White Blood Count 11.5 T/CUMM (4-12)
[2020-06-24 06:23] LABS: Calcium 8.7 MG/DL (8.5-10.1); Hypochromasia 1+; Lymphocytes 4 % (20-55); Microcytosis 1+; Osmolality,Calculated 290.7 MOS/KG (273-304); Ovalocytes Slight; Platelet Estimate Adequate; Potassium 3.9 MMOL/L (3.5-5.1); Segmented Neutrophils 91 % (50-85); Total Cells Counted 100
[2020-06-24] MEDS: DEXMEDETOMIDINE 400 MCG in SODIUM CHLORIDE 0.9% 96 ML IV PRN ×4 (06:56→21:21)
[2020-06-24] MEDS: ENOXAPARIN 40 MG/0.4 ML SYRINGE SUBCUT SCH (08:04)
[2020-06-24] MEDS: FERRIC GLUCONATE COMPLEX 125 MG in SODIUM CHLORIDE 0.9% 100 ML IV SCH (08:06)
[2020-06-24] MEDS: POTASSIUM CHLORIDE 20 MEQ TABLET PO SCH ×2 (08:06→20:38)
[2020-06-24] MEDS: FAMOTIDINE 8 MG/ML 50 ML/BOTTLE PO SCH ×2 (08:14→20:40)
[2020-06-24] MEDS: VANCOMYCIN INJ 1,500 MG in SODIUM CHLORIDE 0.9% 500 ML IV SCH (14:04)
[2020-06-25] MEDS: ALBUTEROL/IPRATROPIUM 3 ML NEB RESP TX SCH ×4 (02:06→19:22)
[2020-06-25] MEDS: THEOPHYLLINE 5.33 MG/ML 30 ML/BOTTLE PER TUBE SCH ×4 (03:48→21:16)
[2020-06-25] MEDS: MEROPENEM 500 MG in SODIUM CHLORIDE 0.9% 100 ML IV SCH ×4 (04:14→21:17)
[2020-06-25 04:24] LABS: ABG Base Excess -4.4 MMOL/L (-2.5-2.5); ABG HCO3 20.8 MMOL/L (20-26); ABG Oxygen Saturation 99.3 % (95-100); ABG PCO2 28.7 MM HG (35-48); ABG PH 7.423 (7.35-7.45); ABG TCO2 16.4 MMOL/L (23-27)
[2020-06-25] MEDS: DEXMEDETOMIDINE 400 MCG in SODIUM CHLORIDE 0.9% 96 ML IV PRN ×4 (05:14→23:42)
[2020-06-25] MEDS: INSULIN LISPRO 100 UNIT/ML SUBCUT SCH ×3 (05:39→18:24)
[2020-06-25 06:02] LABS: Basophils % 0.1 % (0.0-0.8); Hematocrit 41.1 VOL% (35.7-47.0); Immature Granulocytes % 0.8 %; Immature Granulocytes Absolute 0.11 #; Lymphocytes # 0.4 10*3/uL (1.4-4.0); Lymphocytes % 3.2 % (21.3-54.2); Mean Corpuscular HGB Conc 31.6 GM/DL (32-36); Mean Corpuscular Volume 78.4 FL (87-102); Mean Platelet Volume 10.5 FL (9.6-12.0); Monocytes % 2.5 % (1.7-12.7); Neutrophils % 93.4 % (38.7-73.9); Platelet Count 267 T/CUMM (130-400); Red Blood Count 5.24 MC/CUMM (3.8-5.5); Red Cell Distribution Width 17.1 % (9.3-17.3)
[2020-06-25 06:18] LABS: Calcium 8.9 MG/DL (8.5-10.1); Osmolality,Calculated 285.7 MOS/KG (273-304)
[2020-06-25 06:25] LABS: Lymphocytes 2 % (20-55); Microcytosis Slight; Platelet Estimate Adequate; Segmented Neutrophils 96 % (50-85); Total Cells Counted 100
[2020-06-25 06:42] LABS: PT Patient Result 11.1 SECS (9.8-11.9); Partial Thromboplastin Time 21.4 SECS (23.9-33.8)
[2020-06-25] MEDS: methylPREDNISolone SOD SUC 40 MG/1 ML VIAL IV SCH ×2 (08:27→16:00)
[2020-06-25] MEDS: ENOXAPARIN 40 MG/0.4 ML SYRINGE SUBCUT SCH (08:28)
[2020-06-25] MEDS: FAMOTIDINE 8 MG/ML 50 ML/BOTTLE PO SCH ×2 (08:28→21:15)
[2020-06-25] MEDS: FERRIC GLUCONATE COMPLEX 125 MG in SODIUM CHLORIDE 0.9% 100 ML IV SCH (09:01)
[2020-06-25] MEDS: POTASSIUM CHLORIDE 20 MEQ TABLET PO SCH (09:12)
[2020-06-25 11:10] LABS: ABG Base Excess -3.9 MMOL/L (-2.5-2.5); ABG HCO3 21.2 MMOL/L (20-26); ABG Oxygen Saturation 97.7 % (95-100); ABG PCO2 29.1 MM HG (35-48); ABG PH 7.427 (7.35-7.45); ABG PO2 98.2 MM HG (80-95); ABG TCO2 16.8 MMOL/L (23-27); Allen Test Positive
[2020-06-25] MEDS: VANCOMYCIN INJ 1,500 MG in SODIUM CHLORIDE 0.9% 500 ML IV SCH (14:31)
[2020-06-25] MEDS: POTASSIUM CHLORIDE 20 MEQ/15 ML UDCUP PO SCH (21:14)
[2020-06-26] MEDS: methylPREDNISolone SOD SUC 40 MG/1 ML VIAL IV SCH ×4 (00:07→23:42)
[2020-06-26] MEDS: INSULIN LISPRO 100 UNIT/ML SUBCUT SCH ×5 (00:08→23:42)
[2020-06-26] MEDS: ALBUTEROL/IPRATROPIUM 3 ML NEB RESP TX SCH ×4 (00:12→19:42)
[2020-06-26] MEDS: THEOPHYLLINE 5.33 MG/ML 30 ML/BOTTLE PER TUBE SCH ×4 (02:42→20:14)
[2020-06-26] MEDS: MEROPENEM 500 MG in SODIUM CHLORIDE 0.9% 100 ML IV SCH ×4 (03:58→21:39)
[2020-06-26 05:06] LABS: Calcium 8.2 MG/DL (8.5-10.1); Osmolality,Calculated 291.4 MOS/KG (273-304); Potassium 4.2 MMOL/L (3.5-5.1)
[2020-06-26 05:09] LABS: Basophils % 0.2 % (0.0-0.8); Hematocrit 42.3 VOL% (35.7-47.0); Hemoglobin 12.8 GM/DL (12.0-16.0); Immature Granulocytes Absolute 0.13 #; Lymphocytes # 0.4 10*3/uL (1.4-4.0); Mean Corpuscular HGB Conc 30.3 GM/DL (32-36); Mean Corpuscular Volume 80.7 FL (87-102); Mean Platelet Volume 11.3 FL (9.6-12.0); Monocytes % 2.5 % (1.7-12.7); Neutrophils % 93.3 % (38.7-73.9); Platelet Count 268 T/CUMM (130-400); Red Blood Count 5.24 MC/CUMM (3.8-5.5); Red Cell Distribution Width 17.2 % (9.3-17.3); White Blood Count 13.3 T/CUMM (4-12)
[2020-06-26 05:14] LABS: Hypochromasia Slight; Lymphocytes 4 % (20-55); Microcytosis Slight; Platelet Estimate Adequate; Segmented Neutrophils 95 % (50-85); Total Cells Counted 100
[2020-06-26] MEDS: DEXMEDETOMIDINE 400 MCG in SODIUM CHLORIDE 0.9% 96 ML IV PRN ×2 (06:22→17:23)
[2020-06-26 08:08] LABS: ABG Base Excess -2.8 MMOL/L (-2.5-2.5); ABG HCO3 19.5 MMOL/L (20-26); ABG Oxygen Saturation 97.6 % (95-100); ABG PCO2 27.3 MM HG (35-48); ABG PH 7.471 (7.35-7.45); ABG PO2 101.3 MM HG (80-95); ABG TCO2 20.3 MMOL/L (23-27); Allen Test Positive
[2020-06-26] MEDS: FERRIC GLUCONATE COMPLEX 125 MG in SODIUM CHLORIDE 0.9% 100 ML IV SCH (08:36)
[2020-06-26] MEDS: ENOXAPARIN 40 MG/0.4 ML SYRINGE SUBCUT SCH (08:36)
[2020-06-26] MEDS: POTASSIUM CHLORIDE 20 MEQ/15 ML UDCUP PO SCH ×2 (08:37→20:14)
[2020-06-26] MEDS: FAMOTIDINE 8 MG/ML 50 ML/BOTTLE PO SCH ×2 (08:37→20:14)
[2020-06-26 11:57] LABS: ABG Base Excess -1.5 MMOL/L (-2.5-2.5); ABG HCO3 20.2 MMOL/L (20-26); ABG Oxygen Saturation 96.9 % (95-100); ABG PCO2 26.5 MM HG (35-48); ABG PO2 88.5 MM HG (80-95); Allen Test Positive; Pt O2 Delivery Device Venturi Mask
[2020-06-26] MEDS: VANCOMYCIN INJ 1,500 MG in SODIUM CHLORIDE 0.9% 500 ML IV SCH (15:04)
[2020-06-26 23:09] LABS: Basophils % 0.1 % (0.0-0.8); Hematocrit 44.4 VOL% (35.7-47.0); Hemoglobin 13.6 GM/DL (12.0-16.0); Immature Granulocytes % 0.7 %; Immature Granulocytes Absolute 0.15 #; Lymphocytes # 0.4 10*3/uL (1.4-4.0); Mean Corpuscular HGB Conc 30.6 GM/DL (32-36); Mean Corpuscular Volume 81.8 FL (87-102); Mean Platelet Volume 10.6 FL (9.6-12.0); Monocytes % 5.1 % (1.7-12.7); Neutrophils % 92.1 % (38.7-73.9); Red Blood Count 5.43 MC/CUMM (3.8-5.5)
[2020-06-26 23:10] LABS: Platelet Count 393 T/CUMM (130-400); White Blood Count 22.1 T/CUMM (4-12)
[2020-06-26 23:21] LABS: PT Patient Result 11.1 SECS (9.8-11.9)
[2020-06-26 23:28] LABS: Partial Thromboplastin Time 22.9 SECS (23.9-33.8)
[2020-06-26 23:35] LABS: Lymphocytes 2 % (20-55); Segmented Neutrophils 93 % (50-85)
[2020-06-26 23:36] LABS: Hypochromasia Slight; Ovalocytes 1+; Platelet Estimate Normal
[2020-06-26 23:37] LABS: Total Cells Counted 100
[2020-06-27] MEDS: ALBUTEROL/IPRATROPIUM 3 ML NEB RESP TX SCH ×4 (00:08→18:03)
[2020-06-27] MEDS: MEROPENEM 500 MG in SODIUM CHLORIDE 0.9% 100 ML IV SCH ×4 (03:28→21:22)
[2020-06-27] MEDS: THEOPHYLLINE 5.33 MG/ML 30 ML/BOTTLE PER TUBE SCH ×4 (05:02→20:52)
[2020-06-27 05:06] LABS: Basophils % 0.1 % (0.0-0.8); Hematocrit 40.2 VOL% (35.7-47.0); Hemoglobin 12.7 GM/DL (12.0-16.0); Immature Granulocytes % 0.7 %; Immature Granulocytes Absolute 0.11 #; Lymphocytes # 0.3 10*3/uL (1.4-4.0); Lymphocytes % 2.2 % (21.3-54.2); Mean Corpuscular HGB Conc 31.6 GM/DL (32-36); Mean Corpuscular Volume 79.3 FL (87-102); Mean Platelet Volume 10.7 FL (9.6-12.0); Monocytes % 2.8 % (1.7-12.7); Neutrophils % 94.2 % (38.7-73.9); Platelet Count 327 T/CUMM (130-400); Red Blood Count 5.07 MC/CUMM (3.8-5.5); Red Cell Distribution Width 17.6 % (9.3-17.3); White Blood Count 15.2 T/CUMM (4-12)
[2020-06-27 05:27] LABS: Band Neutrophils 1 % (0-10); Lymphocytes 2 % (20-55); Platelet Estimate Adequate; Segmented Neutrophils 94 % (50-85); Total Cells Counted 100
[2020-06-27 05:44] LABS: Calcium 8.9 MG/DL (8.5-10.1); Osmolality,Calculated 295.1 MOS/KG (273-304); Potassium 3.4 MMOL/L (3.5-5.1)
[2020-06-27] MEDS: INSULIN LISPRO 100 UNIT/ML SUBCUT SCH ×4 (06:00→23:53)
[2020-06-27] MEDS: DEXMEDETOMIDINE 400 MCG in SODIUM CHLORIDE 0.9% 96 ML IV PRN ×2 (06:25→21:21)
[2020-06-27 06:31] LABS: ABG HCO3 21.7 MMOL/L (20-26); ABG PH 7.404 (7.35-7.45)
[2020-06-27 06:32] LABS: ABG Base Excess -3.3 MMOL/L (-2.5-2.5); ABG Oxygen Saturation 17.1 % (95-100)
[2020-06-27] MEDS: methylPREDNISolone SOD SUC 40 MG/1 ML VIAL IV SCH ×3 (08:16→23:53)
[2020-06-27] MEDS: ENOXAPARIN 40 MG/0.4 ML SYRINGE SUBCUT SCH (08:16)
[2020-06-27] MEDS: POTASSIUM CHLORIDE 20 MEQ/15 ML UDCUP PO SCH ×2 (08:44→20:52)
[2020-06-27] MEDS: FAMOTIDINE 8 MG/ML 50 ML/BOTTLE PO SCH ×2 (08:44→20:59)
[2020-06-27] MEDS: hydrALAZINE 20 MG/1 ML VIAL IV PRN (13:48)
[2020-06-27] MEDS: VANCOMYCIN INJ 1,500 MG in SODIUM CHLORIDE 0.9% 500 ML IV SCH (13:49)
[2020-06-28] MEDS: ALBUTEROL/IPRATROPIUM 3 ML NEB RESP TX SCH ×4 (01:48→18:30)
[2020-06-28 03:33] LABS: ABG Base Excess -3.4 MMOL/L (-2.5-2.5); ABG HCO3 21.6 MMOL/L (20-26); ABG Oxygen Saturation 97.2 % (95-100); ABG PCO2 27.8 MM HG (35-48); ABG PH 7.448 (7.35-7.45); ABG PO2 88.9 MM HG (80-95); ABG TCO2 16.8 MMOL/L (23-27)
[2020-06-28] MEDS: THEOPHYLLINE 5.33 MG/ML 30 ML/BOTTLE PER TUBE SCH ×4 (03:51→20:43)
[2020-06-28] MEDS: MEROPENEM 500 MG in SODIUM CHLORIDE 0.9% 100 ML IV SCH ×4 (03:51→22:08)
[2020-06-28] MEDS: INSULIN LISPRO 100 UNIT/ML SUBCUT SCH ×3 (06:04→17:49)
[2020-06-28 06:23] LABS: Calcium 9.2 MG/DL (8.5-10.1); Osmolality,Calculated 300.8 MOS/KG (273-304); Potassium 3.6 MMOL/L (3.5-5.1)
[2020-06-28 06:26] LABS: Basophils % 0.1 % (0.0-0.8); Hematocrit 43.9 VOL% (35.7-47.0); Immature Granulocytes % 0.8 %; Immature Granulocytes Absolute 0.13 #; Lymphocytes # 0.4 10*3/uL (1.4-4.0); Lymphocytes % 2.4 % (21.3-54.2); Mean Corpuscular HGB Conc 29.8 GM/DL (32-36); Mean Corpuscular Volume 82.5 FL (87-102); Mean Platelet Volume 11.3 FL (9.6-12.0); Monocytes % 4.8 % (1.7-12.7); Neutrophils % 91.9 % (38.7-73.9); Platelet Count 376 T/CUMM (130-400); Red Blood Count 5.32 MC/CUMM (3.8-5.5); Red Cell Distribution Width 17.5 % (9.3-17.3); White Blood Count 16.1 T/CUMM (4-12)
[2020-06-28 06:32] LABS: Hemoglobin 13.1 GM/DL (12.0-16.0)
[2020-06-28 06:41] LABS: Lymphocytes 2 % (20-55); Platelet Estimate Normal; Segmented Neutrophils 96 % (50-85); Total Cells Counted 100
[2020-06-28] MEDS ORDERED: MORPHINE 4 MG/1 ML VIAL IV ONE (08:14)
[2020-06-28] MEDS: ENOXAPARIN 40 MG/0.4 ML SYRINGE SUBCUT SCH (08:31)
[2020-06-28] MEDS: methylPREDNISolone SOD SUC 40 MG/1 ML VIAL IV SCH ×2 (08:32→16:47)
[2020-06-28] MEDS: FAMOTIDINE 8 MG/ML 50 ML/BOTTLE PO SCH ×2 (09:05→20:44)
[2020-06-28] MEDS: POTASSIUM CHLORIDE 20 MEQ/15 ML UDCUP PO SCH ×2 (09:05→20:44)
[2020-06-28] MEDS ORDERED: VANCOMYCIN INJ 1,500 MG in SODIUM CHLORIDE 0.9% 500 ML IV SCH (14:30)
[2020-06-28] MEDS: LORazepam 2 MG/1 ML VIAL IV PRN ×2 (15:06→21:13)
[2020-06-28] MEDS: hydrALAZINE 20 MG/1 ML VIAL IV PRN (15:08)
[2020-06-28] MEDS: VANCOMYCIN INJ 1,500 MG in SODIUM CHLORIDE 0.9% 500 ML IV SCH (15:18)
[2020-06-29] MEDS: INSULIN LISPRO 100 UNIT/ML SUBCUT SCH ×5 (00:32→23:58)
[2020-06-29] MEDS: methylPREDNISolone SOD SUC 40 MG/1 ML VIAL IV SCH ×3 (00:33→16:29)
[2020-06-29] MEDS: ALBUTEROL/IPRATROPIUM 3 ML NEB RESP TX SCH ×4 (01:00→19:41)
[2020-06-29] MEDS: hydrALAZINE 20 MG/1 ML VIAL IV PRN (02:18)
[2020-06-29 02:48] LABS: ABG Base Excess -2.9 MMOL/L (-2.5-2.5); ABG Oxygen Saturation 99.7 % (95-100); ABG PCO2 26.1 MM HG (35-48); ABG PH 7.472 (7.35-7.45); ABG TCO2 16.4 MMOL/L (23-27)
[2020-06-29] MEDS: THEOPHYLLINE 5.33 MG/ML 30 ML/BOTTLE PER TUBE SCH ×4 (04:02→20:19)
[2020-06-29] MEDS: MEROPENEM 500 MG in SODIUM CHLORIDE 0.9% 100 ML IV SCH ×4 (04:47→23:05)
[2020-06-29 05:55] LABS: Basophils % 0.1 % (0.0-0.8); Hemoglobin 13.3 GM/DL (12.0-16.0); Immature Granulocytes % 0.7 %; Immature Granulocytes Absolute 0.11 #; Lymphocytes # 0.3 10*3/uL (1.4-4.0); Lymphocytes % 1.5 % (21.3-54.2); Mean Corpuscular HGB Conc 30.9 GM/DL (32-36); Mean Corpuscular Volume 80.4 FL (87-102); Mean Platelet Volume 10.2 FL (9.6-12.0); Monocytes % 3.1 % (1.7-12.7); Neutrophils % 94.6 % (38.7-73.9); Platelet Count 389 T/CUMM (130-400); Red Blood Count 5.35 MC/CUMM (3.8-5.5); Red Cell Distribution Width 18.4 % (9.3-17.3); White Blood Count 16.3 T/CUMM (4-12)
[2020-06-29] MEDS ORDERED: LABETALOL 20 MG/4 ML SYRINGE IV ONE (06:07)
[2020-06-29 06:13] LABS: Calcium 9.3 MG/DL (8.5-10.1); Osmolality,Calculated 301.7 MOS/KG (273-304); Potassium 3.1 MMOL/L (3.5-5.1)
[2020-06-29 07:03] LABS: Lymphocytes 1 % (20-55); Segmented Neutrophils 96 % (50-85); Total Cells Counted 100
[2020-06-29 07:04] LABS: Hypochromasia 2+; Macrocytosis 1+; Platelet Estimate Normal
[2020-06-29] MEDS: FAMOTIDINE 8 MG/ML 50 ML/BOTTLE PO SCH ×2 (08:29→20:20)
[2020-06-29] MEDS: POTASSIUM CHLORIDE 20 MEQ/15 ML UDCUP PO SCH ×2 (08:32→20:19)
[2020-06-29] MEDS: ENOXAPARIN 40 MG/0.4 ML SYRINGE SUBCUT SCH (08:32)
[2020-06-29] MEDS: ERGOCALCIFEROL 50,000 UNIT CAPSULE PO SCH (08:33)
[2020-06-29] MEDS: guaiFENesin/DM ER 600-30 MG TABLET PO PRN (08:33)
[2020-06-29] MEDS: VANCOMYCIN INJ 1,500 MG in SODIUM CHLORIDE 0.9% 500 ML IV SCH ×2 (08:37→20:34)
[2020-06-29] MEDS: METHADONE 10 MG TABLET PO SCH (10:42)
[2020-06-29] MEDS: POTASSIUM CHLORIDE 20 MEQ/15 ML UDCUP PER TUBE PRN ×3 (12:06→16:30)
[2020-06-29] MEDS: ACETAMINOPHEN 325 MG TABLET PO PRN (16:43)
[2020-06-29] MEDS: ONDANSETRON 4 MG/2 ML VIAL IV PRN (17:21)
[2020-06-29] MEDS: LORazepam 1 MG TABLET PO PRN (18:03)
[2020-06-29] MEDS: atenoloL 25 MG TABLET PO SCH (20:20)
[2020-06-30] MEDS: methylPREDNISolone SOD SUC 40 MG/1 ML VIAL IV SCH ×3 (00:01→22:03)
[2020-06-30] MEDS: LORazepam 1 MG TABLET PO PRN ×2 (00:57→12:53)
[2020-06-30] MEDS: ALBUTEROL/IPRATROPIUM 3 ML NEB RESP TX SCH ×4 (01:29→19:37)
[2020-06-30] MEDS: THEOPHYLLINE 5.33 MG/ML 30 ML/BOTTLE PER TUBE SCH ×2 (04:30→08:57)
[2020-06-30] MEDS: MEROPENEM 500 MG in SODIUM CHLORIDE 0.9% 100 ML IV SCH ×3 (04:30→16:45)
[2020-06-30 04:33] LABS: Allen Test Positive
[2020-06-30 04:34] LABS: ABG Base Excess -2.8 MMOL/L (-2.5-2.5); ABG HCO3 20.4 MMOL/L (20-26); ABG PH 7.436 (7.35-7.45); ABG PO2 81.8 MM HG (80-95); ABG TCO2 21.3 MMOL/L (23-27)
[2020-06-30] MEDS: INSULIN LISPRO 100 UNIT/ML SUBCUT SCH ×3 (05:40→17:44)
[2020-06-30 07:20] LABS: Calcium 9.2 MG/DL (8.5-10.1); Osmolality,Calculated 302.4 MOS/KG (273-304); Potassium 3.3 MMOL/L (3.5-5.1)
[2020-06-30 07:26] LABS: Basophils % 0.1 % (0.0-0.8); Hematocrit 42.3 VOL% (35.7-47.0); Immature Granulocytes % 1.2 %; Immature Granulocytes Absolute 0.31 #; Lymphocytes # 0.5 10*3/uL (1.4-4.0); Lymphocytes % 1.8 % (21.3-54.2); Mean Corpuscular Volume 82.3 FL (87-102); Monocytes % 3.7 % (1.7-12.7); Neutrophils % 93.2 % (38.7-73.9); Platelet Count 329 T/CUMM (130-400); Red Blood Count 5.14 MC/CUMM (3.8-5.5); Red Cell Distribution Width 18.4 % (9.3-17.3); White Blood Count 26.1 T/CUMM (4-12)
[2020-06-30 07:29] LABS: Hemoglobin 13.1 GM/DL (12.0-16.0)
[2020-06-30 07:46] LABS: Lymphocytes 2 % (20-55); Platelet Estimate Adequate; Segmented Neutrophils 97 % (50-85); Total Cells Counted 100
[2020-06-30] MEDS: VANCOMYCIN INJ 1,500 MG in SODIUM CHLORIDE 0.9% 500 ML IV SCH ×2 (08:55→23:45)
[2020-06-30] MEDS: ENOXAPARIN 40 MG/0.4 ML SYRINGE SUBCUT SCH (08:57)
[2020-06-30] MEDS: POTASSIUM CHLORIDE 20 MEQ/15 ML UDCUP PO SCH ×2 (08:57→22:03)
[2020-06-30] MEDS: FAMOTIDINE 8 MG/ML 50 ML/BOTTLE PO SCH ×2 (09:00→22:03)
[2020-06-30] MEDS: acetaZOLAMIDE 250 MG TABLET PO SCH ×2 (10:42→22:03)
[2020-06-30] MEDS: METHADONE 10 MG TABLET PO SCH (11:05)
[2020-06-30] MEDS: ACETAMINOPHEN 325 MG TABLET PO PRN (11:07)
[2020-06-30] MEDS: ONDANSETRON 4 MG/2 ML VIAL IV PRN (11:08)
[2020-06-30] MEDS: THEOPHYLLINE ER 300 MG TABLET PO SCH (16:45)
[2020-06-30] MEDS ORDERED: methylPREDNISolone SOD SUC 40 MG/1 ML VIAL IV SCH (17:00)
[2020-06-30] MEDS: atenoloL 25 MG TABLET PO SCH (22:04)
[2020-07-01] MEDS: ALBUTEROL/IPRATROPIUM 3 ML NEB RESP TX SCH ×4 (00:39→19:33)
[2020-07-01] MEDS: MEROPENEM 500 MG in SODIUM CHLORIDE 0.9% 100 ML IV SCH ×5 (01:59→23:35)
[2020-07-01] MEDS: LORazepam 1 MG TABLET PO PRN ×2 (01:59→12:29)
[2020-07-01] MEDS: INSULIN LISPRO 100 UNIT/ML SUBCUT SCH ×5 (02:32→23:42)
[2020-07-01] MEDS: VANCOMYCIN INJ 1,500 MG in SODIUM CHLORIDE 0.9% 500 ML IV SCH ×2 (02:34→20:45)
[2020-07-01 03:55] LABS: ABG Base Excess -1.6 MMOL/L (-2.5-2.5); ABG HCO3 22.1 MMOL/L (20-26); ABG Oxygen Saturation 97.7 % (95-100); ABG PO2 102.6 MM HG (80-95); ABG TCO2 23.1 MMOL/L (23-27); Allen Test Positive
[2020-07-01 06:15] LABS: Calcium 8.7 MG/DL (8.5-10.1); Osmolality,Calculated 292.8 MOS/KG (273-304); Potassium 3.3 MMOL/L (3.5-5.1)
[2020-07-01 06:48] LABS: Basophils % 0.1 % (0.0-0.8); Hematocrit 39.3 VOL% (35.7-47.0); Hemoglobin 12.2 GM/DL (12.0-16.0); Immature Granulocytes % 1.7 %; Lymphocytes # 0.6 10*3/uL (1.4-4.0); Lymphocytes % 3.4 % (21.3-54.2); Mean Corpuscular Volume 81.7 FL (87-102); Monocytes % 7.7 % (1.7-12.7); Neutrophils % 87.1 % (38.7-73.9); Platelet Count 335 T/CUMM (130-400); Red Blood Count 4.81 MC/CUMM (3.8-5.5); Red Cell Distribution Width 17.9 % (9.3-17.3); White Blood Count 18.1 T/CUMM (4-12)
[2020-07-01 07:11] LABS: Lymphocytes 1 % (20-55); Segmented Neutrophils 94 % (50-85); Total Cells Counted 100
[2020-07-01 07:13] LABS: Ovalocytes Few; Polychromasia Slight
[2020-07-01 07:16] LABS: Microcytosis Slight
[2020-07-01] MEDS: THEOPHYLLINE ER 300 MG TABLET PO SCH ×2 (08:52→17:26)
[2020-07-01] MEDS: acetaZOLAMIDE 250 MG TABLET PO SCH ×2 (08:52→20:45)
[2020-07-01] MEDS: METHADONE 10 MG TABLET PO SCH (08:53)
[2020-07-01] MEDS: POTASSIUM CHLORIDE 20 MEQ/15 ML UDCUP PO SCH ×2 (08:53→20:46)
[2020-07-01] MEDS: ENOXAPARIN 40 MG/0.4 ML SYRINGE SUBCUT SCH (08:53)
[2020-07-01] MEDS: FAMOTIDINE 8 MG/ML 50 ML/BOTTLE PO SCH ×2 (08:53→21:27)
[2020-07-01] MEDS: hydrALAZINE 20 MG/1 ML VIAL IV PRN (08:54)
[2020-07-01] MEDS: methylPREDNISolone SOD SUC 40 MG/1 ML VIAL IV SCH ×2 (08:54→20:46)
[2020-07-01] MEDS: GABAPENTIN 300 MG CAPSULE PO SCH ×2 (15:38→20:45)
[2020-07-01] MEDS: atenoloL 25 MG TABLET PO SCH ×2 (21:27→21:57)
[2020-07-02] MEDS: ACETAMINOPHEN 325 MG TABLET PO PRN ×2 (00:05→08:29)
[2020-07-02] MEDS: ALBUTEROL/IPRATROPIUM 3 ML NEB RESP TX SCH ×4 (00:31→19:17)
[2020-07-02] MEDS ORDERED: LORazepam 1 MG TABLET PO PRN (04:01)
[2020-07-02] MEDS: MEROPENEM 500 MG in SODIUM CHLORIDE 0.9% 100 ML IV SCH ×4 (04:17→21:42)
[2020-07-02] MEDS: INSULIN LISPRO 100 UNIT/ML SUBCUT SCH ×3 (05:59→17:48)
[2020-07-02 06:26] LABS: Basophils % 0.1 % (0.0-0.8); Hemoglobin 12.9 GM/DL (12.0-16.0); Immature Granulocytes % 1.5 %; Immature Granulocytes Absolute 0.25 #; Lymphocytes # 0.6 10*3/uL (1.4-4.0); Lymphocytes % 3.9 % (21.3-54.2); Mean Corpuscular HGB Conc 31.5 GM/DL (32-36); Mean Corpuscular Volume 80.1 FL (87-102); Mean Platelet Volume 10.1 FL (9.6-12.0); Monocytes % 5.3 % (1.7-12.7); Neutrophils % 89.2 % (38.7-73.9); Platelet Count 362 T/CUMM (130-400); Red Blood Count 5.12 MC/CUMM (3.8-5.5); Red Cell Distribution Width 17.6 % (9.3-17.3); White Blood Count 16.4 T/CUMM (4-12)
[2020-07-02 06:46] LABS: Albumin 2.8 G/DL (3.4-5.0); Bilirubin,Total 1.1 MG/DL (0.2-1.0); Calcium 8.9 MG/DL (8.5-10.1); Hypochromasia Slight; Lymphocytes 2 % (20-55); Microcytosis Slight; Osmolality,Calculated 282.5 MOS/KG (273-304); Ovalocytes Slight; Platelet Estimate Adequate; Potassium 3.5 MMOL/L (3.5-5.1); Segmented Neutrophils 95 % (50-85); Total Cells Counted 100; Total Protein 5.9 G/DL (6.4-8.2)
[2020-07-02] MEDS: THEOPHYLLINE ER 300 MG TABLET PO SCH ×2 (08:30→17:48)
[2020-07-02] MEDS: GABAPENTIN 300 MG CAPSULE PO SCH ×3 (08:30→21:35)
[2020-07-02] MEDS: POTASSIUM CHLORIDE 20 MEQ TABLET PO SCH ×2 (08:30→22:00)
[2020-07-02] MEDS: acetaZOLAMIDE 250 MG TABLET PO SCH ×2 (08:30→21:35)
[2020-07-02] MEDS: NICOTINE 21 MG/24 HR PATCH TRANSDERM PRN (08:31)
[2020-07-02] MEDS: METHADONE 10 MG TABLET PO SCH (08:31)
[2020-07-02] MEDS: ENOXAPARIN 40 MG/0.4 ML SYRINGE SUBCUT SCH (08:32)
[2020-07-02] MEDS: methylPREDNISolone SOD SUC 40 MG/1 ML VIAL IV SCH ×2 (08:32→21:39)
[2020-07-02] MEDS: ONDANSETRON 4 MG/2 ML VIAL IV PRN (08:33)
[2020-07-02] MEDS: FAMOTIDINE 8 MG/ML 50 ML/BOTTLE PO SCH ×2 (10:17→21:37)
[2020-07-02] MEDS: CLORAZEPATE 3.75 MG TABLET PO PRN ×2 (10:17→21:48)
[2020-07-02] MEDS: VANCOMYCIN INJ 1,500 MG in SODIUM CHLORIDE 0.9% 500 ML IV SCH (15:29)
[2020-07-02] MEDS: atenoloL 25 MG TABLET PO SCH (21:35)
[2020-07-02] MEDS: MELATONIN 3 MG TABLET PO PRN (21:48)
[2020-07-03] MEDS: INSULIN LISPRO 100 UNIT/ML SUBCUT SCH ×4 (00:04→17:13)
[2020-07-03] MEDS: ALBUTEROL/IPRATROPIUM 3 ML NEB RESP TX SCH ×4 (00:18→20:06)
[2020-07-03] MEDS: MEROPENEM 500 MG in SODIUM CHLORIDE 0.9% 100 ML IV SCH ×4 (03:39→21:55)
[2020-07-03 05:32] LABS: Basophils % 0.2 % (0.0-0.8); Hematocrit 42.2 VOL% (35.7-47.0); Hemoglobin 12.9 GM/DL (12.0-16.0); Immature Granulocytes % 2.1 %; Immature Granulocytes Absolute 0.39 #; Lymphocytes # 0.6 10*3/uL (1.4-4.0); Lymphocytes % 3.4 % (21.3-54.2); Mean Corpuscular HGB Conc 30.6 GM/DL (32-36); Mean Corpuscular Volume 82.1 FL (87-102); Mean Platelet Volume 10.3 FL (9.6-12.0); Monocytes % 4.2 % (1.7-12.7); Neutrophils % 90.1 % (38.7-73.9); Platelet Count 325 T/CUMM (130-400); Red Blood Count 5.14 MC/CUMM (3.8-5.5); Red Cell Distribution Width 17.5 % (9.3-17.3); White Blood Count 18.5 T/CUMM (4-12)
[2020-07-03 05:49] LABS: Osmolality,Calculated 280.7 MOS/KG (273-304); Potassium 3.7 MMOL/L (3.5-5.1)
[2020-07-03 05:55] LABS: Hypochromasia Slight; Lymphocytes 1 % (20-55); Microcytosis Slight; Platelet Estimate Adequate; Segmented Neutrophils 93 % (50-85); Total Cells Counted 100
[2020-07-03] MEDS: ACETAMINOPHEN 325 MG TABLET PO PRN (07:03)
[2020-07-03] MEDS: METHADONE 10 MG TABLET PO SCH (08:14)
[2020-07-03] MEDS: methylPREDNISolone SOD SUC 40 MG/1 ML VIAL IV SCH ×2 (08:14→21:50)
[2020-07-03] MEDS: acetaZOLAMIDE 250 MG TABLET PO SCH ×2 (08:14→21:49)
[2020-07-03] MEDS: GABAPENTIN 300 MG CAPSULE PO SCH ×3 (08:15→21:49)
[2020-07-03] MEDS: THEOPHYLLINE ER 300 MG TABLET PO SCH ×2 (08:15→16:36)
[2020-07-03] MEDS: ENOXAPARIN 40 MG/0.4 ML SYRINGE SUBCUT SCH (08:15)
[2020-07-03] MEDS: FAMOTIDINE 8 MG/ML 50 ML/BOTTLE PO SCH ×2 (08:15→21:53)
[2020-07-03] MEDS: POTASSIUM CHLORIDE 20 MEQ TABLET PO SCH ×2 (08:15→21:52)
[2020-07-03] MEDS: VANCOMYCIN INJ 1,500 MG in SODIUM CHLORIDE 0.9% 500 ML IV SCH (08:16)
[2020-07-03 10:50] LABS: Bacteria,Urine Occasional /HPF (Few); Bilirubin,Urine Negative (Negative); Blood, Urine Moderate mg/dL (Negative); Glucose,Urine (UA) Negative (Negative); Hyaline Casts,Urine 1 /LPF (0-3); Ketones,Urine Negative (Negative); Mucus,Urine Few /LPF (Occasional); Nitrite,Urine Negative (Negative); Protein,Urine Negative; RBC,Urine 15 /HPF (0-4); Urine Appearance CLEAR (Clear); Urine Color Yellow (Yellow); Urine Specific Gravity 1.016 (1.001-1.035); Urine Urobilinogen < 2.0 EU/DL (0.2-1.0); WBC,Urine 3 /HPF (0-6)
[2020-07-03 10:51] LABS: ABG Base Excess -1.4 MMOL/L (-2.5-2.5); ABG HCO3 23.2 MMOL/L (20-26); ABG Oxygen Saturation 97.5 % (95-100); ABG PCO2 38.3 MM HG (35-48); ABG PO2 97.6 MM HG (80-95); ABG TCO2 20.4 MMOL/L (23-27)
[2020-07-03] MEDS: atenoloL 25 MG TABLET PO SCH (21:49)
[2020-07-03] MEDS: CLORAZEPATE 3.75 MG TABLET PO PRN (21:52)
[2020-07-04] MEDS: INSULIN LISPRO 100 UNIT/ML SUBCUT SCH ×4 (00:27→18:08)
[2020-07-04] MEDS: ALBUTEROL/IPRATROPIUM 3 ML NEB RESP TX SCH ×4 (01:06→20:52)
[2020-07-04] MEDS: ACETAMINOPHEN 325 MG TABLET PO PRN ×5 (01:48→22:14)
[2020-07-04] MEDS: VANCOMYCIN INJ 1,500 MG in SODIUM CHLORIDE 0.9% 500 ML IV SCH ×2 (02:00→20:13)
[2020-07-04] MEDS: MEROPENEM 500 MG in SODIUM CHLORIDE 0.9% 100 ML IV SCH ×4 (04:09→22:22)
[2020-07-04 05:31] LABS: Basophils % 0.2 % (0.0-0.8); Hematocrit 36.7 VOL% (35.7-47.0); Hemoglobin 11.6 GM/DL (12.0-16.0); Immature Granulocytes % 1.7 %; Immature Granulocytes Absolute 0.29 #; Lymphocytes # 0.5 10*3/uL (1.4-4.0); Lymphocytes % 2.7 % (21.3-54.2); Mean Corpuscular HGB Conc 31.6 GM/DL (32-36); Mean Corpuscular Volume 81.6 FL (87-102); Mean Platelet Volume 10.2 FL (9.6-12.0); Monocytes % 3.2 % (1.7-12.7); Neutrophils % 92.2 % (38.7-73.9); Platelet Count 243 T/CUMM (130-400); Red Cell Distribution Width 17.4 % (9.3-17.3); White Blood Count 16.7 T/CUMM (4-12)
[2020-07-04 05:57] LABS: Calcium 8.6 MG/DL (8.5-10.1); Osmolality,Calculated 285.4 MOS/KG (273-304); Potassium 3.5 MMOL/L (3.5-5.1)
[2020-07-04 06:00] LABS: Hypochromasia 1+; Lymphocytes 3 % (20-55); Microcytosis 1+; Platelet Estimate Adequate; Segmented Neutrophils 94 % (50-85); Total Cells Counted 100
[2020-07-04] MEDS: THEOPHYLLINE ER 300 MG TABLET PO SCH ×2 (08:16→16:46)
[2020-07-04] MEDS: GABAPENTIN 300 MG CAPSULE PO SCH ×3 (08:16→20:15)
[2020-07-04] MEDS: ENOXAPARIN 40 MG/0.4 ML SYRINGE SUBCUT SCH (08:16)
[2020-07-04] MEDS: acetaZOLAMIDE 250 MG TABLET PO SCH ×2 (08:16→20:15)
[2020-07-04] MEDS: POTASSIUM CHLORIDE 20 MEQ TABLET PO SCH ×2 (08:16→20:15)
[2020-07-04] MEDS: METHADONE 10 MG TABLET PO SCH (08:16)
[2020-07-04] MEDS: FAMOTIDINE 8 MG/ML 50 ML/BOTTLE PO SCH ×2 (08:17→20:14)
[2020-07-04] MEDS: methylPREDNISolone SOD SUC 40 MG/1 ML VIAL IV SCH ×2 (08:17→20:13)
[2020-07-04] MEDS: CLORAZEPATE 3.75 MG TABLET PO PRN (12:13)
[2020-07-04] MEDS: atenoloL 25 MG TABLET PO SCH (20:15)
[2020-07-04] MEDS: MELATONIN 3 MG TABLET PO PRN (20:15)
[2020-07-05] MEDS: INSULIN LISPRO 100 UNIT/ML SUBCUT SCH ×5 (00:22→23:36)
[2020-07-05] MEDS: ALBUTEROL/IPRATROPIUM 3 ML NEB RESP TX SCH ×4 (01:38→19:40)
[2020-07-05] MEDS: CLORAZEPATE 3.75 MG TABLET PO PRN ×3 (01:47→23:29)
[2020-07-05] MEDS: MEROPENEM 500 MG in SODIUM CHLORIDE 0.9% 100 ML IV SCH ×4 (04:30→23:28)
[2020-07-05] MEDS: ACETAMINOPHEN 325 MG TABLET PO PRN ×3 (04:34→21:18)
[2020-07-05] MEDS: acetaZOLAMIDE 250 MG TABLET PO SCH ×2 (08:18→21:18)
[2020-07-05] MEDS: GABAPENTIN 300 MG CAPSULE PO SCH ×3 (08:18→21:18)
[2020-07-05] MEDS: METHADONE 10 MG TABLET PO SCH (08:19)
[2020-07-05] MEDS: POTASSIUM CHLORIDE 20 MEQ TABLET PO SCH ×2 (08:19→21:19)
[2020-07-05] MEDS: ENOXAPARIN 40 MG/0.4 ML SYRINGE SUBCUT SCH (08:19)
[2020-07-05] MEDS: THEOPHYLLINE ER 300 MG TABLET PO SCH ×2 (08:19→17:07)
[2020-07-05] MEDS: methylPREDNISolone SOD SUC 40 MG/1 ML VIAL IV SCH ×2 (08:20→21:19)
[2020-07-05] MEDS: FAMOTIDINE 8 MG/ML 50 ML/BOTTLE PO SCH ×2 (10:08→21:19)
[2020-07-05] MEDS: VANCOMYCIN INJ 1,500 MG in SODIUM CHLORIDE 0.9% 500 ML IV SCH (16:02)
[2020-07-05] MEDS: MELATONIN 3 MG TABLET PO PRN (21:18)
[2020-07-05] MEDS: atenoloL 25 MG TABLET PO SCH (21:18)
[2020-07-06] MEDS: ALBUTEROL/IPRATROPIUM 3 ML NEB RESP TX SCH ×4 (01:47→19:34)
[2020-07-06] MEDS: MEROPENEM 500 MG in SODIUM CHLORIDE 0.9% 100 ML IV SCH ×4 (04:10→22:13)
[2020-07-06] MEDS: ACETAMINOPHEN 325 MG TABLET PO PRN ×2 (04:14→22:11)
[2020-07-06] MEDS: INSULIN LISPRO 100 UNIT/ML SUBCUT SCH ×3 (05:58→17:55)
[2020-07-06 06:36] LABS: Calcium 8.9 MG/DL (8.5-10.1); Osmolality,Calculated 278.7 MOS/KG (273-304)
[2020-07-06 06:47] LABS: Basophils % 0.2 % (0.0-0.8); Hematocrit 39.4 VOL% (35.7-47.0); Hemoglobin 12.2 GM/DL (12.0-16.0); Immature Granulocytes % 2.3 %; Immature Granulocytes Absolute 0.35 #; Lymphocytes # 0.5 10*3/uL (1.4-4.0); Mean Corpuscular Volume 82.9 FL (87-102); Mean Platelet Volume 10.7 FL (9.6-12.0); Monocytes % 3.5 % (1.7-12.7); Platelet Count 216 T/CUMM (130-400); Red Blood Count 4.75 MC/CUMM (3.8-5.5); White Blood Count 15.4 T/CUMM (4-12)
[2020-07-06 09:29] LABS: Band Neutrophils 3 % (0-10); Lymphocytes 5 % (20-55); Segmented Neutrophils 88 % (50-85); Total Cells Counted 100
[2020-07-06 09:42] LABS: Platelet Estimate Normal
[2020-07-06] MEDS: THEOPHYLLINE ER 300 MG TABLET PO SCH ×2 (10:23→16:41)
[2020-07-06] MEDS: acetaZOLAMIDE 250 MG TABLET PO SCH ×2 (10:23→22:11)
[2020-07-06] MEDS: METHADONE 10 MG TABLET PO SCH (10:24)
[2020-07-06] MEDS: methylPREDNISolone SOD SUC 40 MG/1 ML VIAL IV SCH ×2 (10:24→22:12)
[2020-07-06] MEDS: GABAPENTIN 300 MG CAPSULE PO SCH ×3 (10:24→22:12)
[2020-07-06] MEDS: VANCOMYCIN INJ 1,500 MG in SODIUM CHLORIDE 0.9% 500 ML IV SCH (10:24)
[2020-07-06] MEDS: POTASSIUM CHLORIDE 20 MEQ TABLET PO SCH ×2 (10:25→22:12)
[2020-07-06] MEDS: ERGOCALCIFEROL 50,000 UNIT CAPSULE PO SCH (10:25)
[2020-07-06] MEDS: FAMOTIDINE 8 MG/ML 50 ML/BOTTLE PO SCH ×2 (10:26→22:13)
[2020-07-06] MEDS: ENOXAPARIN 40 MG/0.4 ML SYRINGE SUBCUT SCH (10:26)
[2020-07-06] MEDS: atenoloL 25 MG TABLET PO SCH (22:11)
[2020-07-06] MEDS: CLORAZEPATE 3.75 MG TABLET PO PRN (22:11)
[2020-07-06] MEDS: MELATONIN 3 MG TABLET PO PRN (22:11)
[2020-07-06] MEDS: ONDANSETRON 4 MG/2 ML VIAL IV PRN (22:16)
[2020-07-07] MEDS: ALBUTEROL/IPRATROPIUM 3 ML NEB RESP TX SCH ×4 (00:02→19:40)
[2020-07-07] MEDS: INSULIN LISPRO 100 UNIT/ML SUBCUT SCH ×4 (01:04→18:04)
[2020-07-07] MEDS: VANCOMYCIN INJ 1,500 MG in SODIUM CHLORIDE 0.9% 500 ML IV SCH ×2 (02:22→22:59)
[2020-07-07] MEDS: MEROPENEM 500 MG in SODIUM CHLORIDE 0.9% 100 ML IV SCH ×4 (04:41→22:04)
[2020-07-07 06:32] LABS: Calcium 8.9 MG/DL (8.5-10.1); Osmolality,Calculated 282.5 MOS/KG (273-304); Potassium 3.7 MMOL/L (3.5-5.1)
[2020-07-07 07:33] LABS: Basophils % 0.2 % (0.0-0.8); Immature Granulocytes % 2.4 %; Immature Granulocytes Absolute 0.37 #; Lymphocytes # 0.4 10*3/uL (1.4-4.0); Lymphocytes % 2.8 % (21.3-54.2); Mean Corpuscular Volume 85.5 FL (87-102); Mean Platelet Volume 10.7 FL (9.6-12.0); Monocytes % 2.9 % (1.7-12.7); Neutrophils % 91.7 % (38.7-73.9); Platelet Count 204 T/CUMM (130-400); Red Blood Count 4.68 MC/CUMM (3.8-5.5); Red Cell Distribution Width 18.3 % (9.3-17.3); White Blood Count 15.6 T/CUMM (4-12)
[2020-07-07 07:36] LABS: Lymphocytes 2 % (20-55); Platelet Estimate Adequate; Segmented Neutrophils 90 % (50-85); Total Cells Counted 100
[2020-07-07] MEDS: methylPREDNISolone SOD SUC 40 MG/1 ML VIAL IV SCH ×2 (08:25→22:05)
[2020-07-07] MEDS: THEOPHYLLINE ER 300 MG TABLET PO SCH ×2 (08:25→16:43)
[2020-07-07] MEDS: ENOXAPARIN 40 MG/0.4 ML SYRINGE SUBCUT SCH (08:25)
[2020-07-07] MEDS: acetaZOLAMIDE 250 MG TABLET PO SCH ×2 (08:25→22:04)
[2020-07-07] MEDS: GABAPENTIN 300 MG CAPSULE PO SCH ×3 (08:26→22:04)
[2020-07-07] MEDS: ACETAMINOPHEN 325 MG TABLET PO PRN (08:26)
[2020-07-07] MEDS: POTASSIUM CHLORIDE 20 MEQ TABLET PO SCH ×2 (08:26→22:04)
[2020-07-07] MEDS: FAMOTIDINE 8 MG/ML 50 ML/BOTTLE PO SCH ×2 (08:27→22:05)
[2020-07-07] MEDS: ONDANSETRON 4 MG/2 ML VIAL IV PRN (09:35)
[2020-07-07] MEDS: METHADONE 10 MG TABLET PO SCH (14:03)
[2020-07-07] MEDS: atenoloL 25 MG TABLET PO SCH (22:05)
[2020-07-08] MEDS: INSULIN LISPRO 100 UNIT/ML SUBCUT SCH ×4 (01:09→17:26)
[2020-07-08] MEDS: ALBUTEROL/IPRATROPIUM 3 ML NEB RESP TX SCH ×4 (01:42→19:35)
[2020-07-08] MEDS: MEROPENEM 500 MG in SODIUM CHLORIDE 0.9% 100 ML IV SCH ×5 (04:30→21:33)
[2020-07-08 05:31] LABS: Basophils % 0.1 % (0.0-0.8); Hematocrit 39.3 VOL% (35.7-47.0); Hemoglobin 12.1 GM/DL (12.0-16.0); Immature Granulocytes % 2.6 %; Immature Granulocytes Absolute 0.39 #; Lymphocytes # 0.4 10*3/uL (1.4-4.0); Lymphocytes % 2.3 % (21.3-54.2); Mean Corpuscular HGB Conc 30.8 GM/DL (32-36); Mean Platelet Volume 10.4 FL (9.6-12.0); Monocytes % 2.7 % (1.7-12.7); Neutrophils % 92.3 % (38.7-73.9); Platelet Count 185 T/CUMM (130-400); Red Blood Count 4.68 MC/CUMM (3.8-5.5); Red Cell Distribution Width 18.5 % (9.3-17.3); White Blood Count 15.1 T/CUMM (4-12)
[2020-07-08 06:00] LABS: Calcium 8.9 MG/DL (8.5-10.1); Potassium 3.9 MMOL/L (3.5-5.1)
[2020-07-08 06:04] LABS: Hypochromasia 1+; Lymphocytes 1 % (20-55); Microcytosis 1+; Ovalocytes Few; Segmented Neutrophils 96 % (50-85); Total Cells Counted 100
[2020-07-08 06:05] LABS: Platelet Estimate Adequate
[2020-07-08] MEDS: THEOPHYLLINE ER 300 MG TABLET PO SCH ×2 (08:39→16:55)
[2020-07-08] MEDS: methylPREDNISolone SOD SUC 40 MG/1 ML VIAL IV SCH ×2 (08:39→20:59)
[2020-07-08] MEDS: ENOXAPARIN 40 MG/0.4 ML SYRINGE SUBCUT SCH (08:39)
[2020-07-08] MEDS: GABAPENTIN 300 MG CAPSULE PO SCH ×3 (08:39→20:58)
[2020-07-08] MEDS: METHADONE 10 MG TABLET PO SCH (08:39)
[2020-07-08] MEDS: acetaZOLAMIDE 250 MG TABLET PO SCH ×2 (08:39→20:58)
[2020-07-08] MEDS: POTASSIUM CHLORIDE 20 MEQ TABLET PO SCH ×2 (08:39→20:58)
[2020-07-08] MEDS: FAMOTIDINE 8 MG/ML 50 ML/BOTTLE PO SCH ×2 (08:51→21:33)
[2020-07-08] MEDS: VANCOMYCIN INJ 1,500 MG in SODIUM CHLORIDE 0.9% 500 ML IV SCH (14:18)
[2020-07-08] MEDS: atenoloL 25 MG TABLET PO SCH (20:59)
[2020-07-09] MEDS: INSULIN LISPRO 100 UNIT/ML SUBCUT SCH ×4 (00:55→18:43)
[2020-07-09] MEDS: ALBUTEROL/IPRATROPIUM 3 ML NEB RESP TX SCH ×4 (03:24→19:10)
[2020-07-09] MEDS: MEROPENEM 500 MG in SODIUM CHLORIDE 0.9% 100 ML IV SCH ×4 (04:41→22:19)
[2020-07-09 06:41] LABS: Basophils % 0.2 % (0.0-0.8); Eosinophils % 0.2 % (0.00-10.9); Hematocrit 38.3 VOL% (35.7-47.0); Hemoglobin 11.5 GM/DL (12.0-16.0); Immature Granulocytes % 2.5 %; Immature Granulocytes Absolute 0.29 #; Lymphocytes # 0.8 10*3/uL (1.4-4.0); Lymphocytes % 6.9 % (21.3-54.2); Mean Corpuscular Volume 84.7 FL (87-102); Mean Platelet Volume 10.4 FL (9.6-12.0); Monocytes % 8.4 % (1.7-12.7); Neutrophils % 81.8 % (38.7-73.9); Platelet Count 152 T/CUMM (130-400); Red Blood Count 4.52 MC/CUMM (3.8-5.5); Red Cell Distribution Width 18.6 % (9.3-17.3); White Blood Count 11.4 T/CUMM (4-12)
[2020-07-09 06:54] LABS: Calcium 8.8 MG/DL (8.5-10.1); Osmolality,Calculated 274.8 MOS/KG (273-304); Potassium 3.5 MMOL/L (3.5-5.1)
[2020-07-09] MEDS: THEOPHYLLINE ER 300 MG TABLET PO SCH ×2 (08:51→16:39)
[2020-07-09] MEDS: POTASSIUM CHLORIDE 20 MEQ TABLET PO SCH ×2 (08:52→22:15)
[2020-07-09] MEDS: METHADONE 10 MG TABLET PO SCH (08:52)
[2020-07-09] MEDS: acetaZOLAMIDE 250 MG TABLET PO SCH ×2 (08:52→22:15)
[2020-07-09] MEDS: ENOXAPARIN 40 MG/0.4 ML SYRINGE SUBCUT SCH (08:53)
[2020-07-09] MEDS: GABAPENTIN 300 MG CAPSULE PO SCH ×3 (08:55→22:16)
[2020-07-09] MEDS: methylPREDNISolone SOD SUC 40 MG/1 ML VIAL IV SCH ×2 (08:55→22:15)
[2020-07-09] MEDS: FAMOTIDINE 8 MG/ML 50 ML/BOTTLE PO SCH (09:03)
[2020-07-09] MEDS: VANCOMYCIN INJ 1,500 MG in SODIUM CHLORIDE 0.9% 500 ML IV SCH (11:08)
[2020-07-09] MEDS: TAMSULOSIN 0.4 MG CAPSULE PO SCH (16:39)
[2020-07-09] MEDS: atenoloL 25 MG TABLET PO SCH (22:15)
[2020-07-10] MEDS: ALBUTEROL/IPRATROPIUM 3 ML NEB RESP TX SCH ×4 (00:10→20:17)
[2020-07-10] MEDS: FAMOTIDINE 8 MG/ML 50 ML/BOTTLE PO SCH ×3 (00:40→23:39)
[2020-07-10] MEDS: INSULIN LISPRO 100 UNIT/ML SUBCUT SCH ×4 (00:47→17:38)
[2020-07-10] MEDS: VANCOMYCIN INJ 1,500 MG in SODIUM CHLORIDE 0.9% 500 ML IV SCH ×2 (02:08→22:03)
[2020-07-10] MEDS: ONDANSETRON 4 MG/2 ML VIAL IV PRN ×2 (02:19→19:25)
[2020-07-10] MEDS: MEROPENEM 500 MG in SODIUM CHLORIDE 0.9% 100 ML IV SCH ×3 (04:12→16:38)
[2020-07-10] MEDS: TAMSULOSIN 0.4 MG CAPSULE PO SCH (08:57)
[2020-07-10] MEDS: ACETAMINOPHEN 325 MG TABLET PO PRN (08:57)
[2020-07-10] MEDS: THEOPHYLLINE ER 300 MG TABLET PO SCH ×2 (08:58→16:38)
[2020-07-10] MEDS: acetaZOLAMIDE 250 MG TABLET PO SCH ×2 (08:58→22:02)
[2020-07-10] MEDS: GABAPENTIN 300 MG CAPSULE PO SCH ×3 (08:58→22:03)
[2020-07-10] MEDS: METHADONE 10 MG TABLET PO SCH (08:58)
[2020-07-10] MEDS: methylPREDNISolone SOD SUC 40 MG/1 ML VIAL IV SCH ×2 (09:00→22:04)
[2020-07-10] MEDS: ENOXAPARIN 40 MG/0.4 ML SYRINGE SUBCUT SCH (09:00)
[2020-07-10] MEDS: POTASSIUM CHLORIDE 20 MEQ TABLET PO SCH ×2 (09:02→22:03)
[2020-07-10] MEDS: atenoloL 25 MG TABLET PO SCH (22:02)
[2020-07-11] MEDS: MEROPENEM 500 MG in SODIUM CHLORIDE 0.9% 100 ML IV SCH ×5 (01:33→21:52)
[2020-07-11] MEDS: ALBUTEROL/IPRATROPIUM 3 ML NEB RESP TX SCH ×4 (01:45→20:30)
[2020-07-11] MEDS: INSULIN LISPRO 100 UNIT/ML SUBCUT SCH ×4 (02:35→17:33)
[2020-07-11] MEDS: ENOXAPARIN 40 MG/0.4 ML SYRINGE SUBCUT SCH (09:35)
[2020-07-11] MEDS: methylPREDNISolone SOD SUC 40 MG/1 ML VIAL IV SCH ×2 (09:35→21:50)
[2020-07-11] MEDS: GABAPENTIN 300 MG CAPSULE PO SCH ×3 (09:36→21:50)
[2020-07-11] MEDS: TAMSULOSIN 0.4 MG CAPSULE PO SCH (09:36)
[2020-07-11] MEDS: METHADONE 10 MG TABLET PO SCH (09:36)
[2020-07-11] MEDS: acetaZOLAMIDE 250 MG TABLET PO SCH ×2 (09:36→21:49)
[2020-07-11] MEDS: POTASSIUM CHLORIDE 20 MEQ TABLET PO SCH ×2 (09:36→21:50)
[2020-07-11] MEDS: THEOPHYLLINE ER 300 MG TABLET PO SCH ×2 (09:36→17:05)
[2020-07-11] MEDS: FAMOTIDINE 8 MG/ML 50 ML/BOTTLE PO SCH ×2 (09:37→21:50)
[2020-07-11] MEDS ORDERED: ALUM/MAG/SIMETH/LIDO VISC 1:1 30 ML BOTTLE PO ONE (10:32)
[2020-07-11] MEDS: VANCOMYCIN INJ 1,500 MG in SODIUM CHLORIDE 0.9% 500 ML IV SCH (14:10)
[2020-07-11] MEDS: MELATONIN 3 MG TABLET PO PRN (21:49)
[2020-07-11] MEDS: atenoloL 25 MG TABLET PO SCH (21:50)
[2020-07-12] MEDS: ALBUTEROL/IPRATROPIUM 3 ML NEB RESP TX SCH ×4 (01:00→20:51)
[2020-07-12] MEDS: INSULIN LISPRO 100 UNIT/ML SUBCUT SCH ×5 (01:38→21:29)
[2020-07-12] MEDS: MEROPENEM 500 MG in SODIUM CHLORIDE 0.9% 100 ML IV SCH ×4 (04:52→21:39)
[2020-07-12] MEDS: ACETAMINOPHEN 325 MG TABLET PO PRN ×2 (06:27→17:44)
[2020-07-12 07:01] LABS: Basophils % 0.1 % (0.0-0.8); Hematocrit 37.8 VOL% (35.7-47.0); Hemoglobin 11.5 GM/DL (12.0-16.0); Immature Granulocytes % 1.5 %; Immature Granulocytes Absolute 0.15 #; Lymphocytes # 0.4 10*3/uL (1.4-4.0); Lymphocytes % 4.2 % (21.3-54.2); Mean Corpuscular HGB Conc 30.4 GM/DL (32-36); Mean Corpuscular Volume 86.5 FL (87-102); Mean Platelet Volume 10.6 FL (9.6-12.0); Monocytes % 4.7 % (1.7-12.7); Neutrophils % 89.5 % (38.7-73.9); Red Blood Count 4.37 MC/CUMM (3.8-5.5); Red Cell Distribution Width 18.4 % (9.3-17.3); White Blood Count 10.1 T/CUMM (4-12)
[2020-07-12 07:03] LABS: Platelet Count 126 T/CUMM (130-400)
[2020-07-12 07:18] LABS: Hypochromasia 1+; Lymphocytes 4 % (20-55); Microcytosis 1+; Segmented Neutrophils 94 % (50-85); Total Cells Counted 100
[2020-07-12 07:26] LABS: Calcium 8.8 MG/DL (8.5-10.1); Potassium 4.8 MMOL/L (3.5-5.1)
[2020-07-12] MEDS: THEOPHYLLINE ER 300 MG TABLET PO SCH ×2 (08:53→16:26)
[2020-07-12] MEDS: GABAPENTIN 300 MG CAPSULE PO SCH ×3 (08:54→21:29)
[2020-07-12] MEDS: acetaZOLAMIDE 250 MG TABLET PO SCH ×2 (08:54→21:29)
[2020-07-12] MEDS: METHADONE 10 MG TABLET PO SCH (08:55)
[2020-07-12] MEDS: TAMSULOSIN 0.4 MG CAPSULE PO SCH (08:56)
[2020-07-12] MEDS: ENOXAPARIN 40 MG/0.4 ML SYRINGE SUBCUT SCH (08:57)
[2020-07-12] MEDS: methylPREDNISolone SOD SUC 40 MG/1 ML VIAL IV SCH ×2 (08:57→21:31)
[2020-07-12] MEDS: POTASSIUM CHLORIDE 20 MEQ TABLET PO SCH ×2 (08:57→21:29)
[2020-07-12] MEDS: FAMOTIDINE 8 MG/ML 50 ML/BOTTLE PO SCH ×2 (09:03→21:38)
[2020-07-12] MEDS ORDERED: NITROGLYCERIN SL 0.4 MG TABLET SL PRN (12:24)
[2020-07-12] MEDS: ASPIRIN EC 81 MG TABLET PO SCH (13:20)
[2020-07-12 13:29] LABS: Troponin I 0.053 NG/ML (0.00-0.045)
[2020-07-12] MEDS: MELATONIN 3 MG TABLET PO PRN (21:28)
[2020-07-12] MEDS: guaiFENesin/DM ER 600-30 MG TABLET PO PRN (21:29)
[2020-07-12] MEDS: atenoloL 25 MG TABLET PO SCH (21:30)
[2020-07-13] MEDS: ALBUTEROL/IPRATROPIUM 3 ML NEB RESP TX SCH ×4 (00:42→20:40)
[2020-07-13 05:08] LABS: Basophils % 0.2 % (0.0-0.8); Hematocrit 37.6 VOL% (35.7-47.0); Hemoglobin 11.6 GM/DL (12.0-16.0); Immature Granulocytes % 1.8 %; Immature Granulocytes Absolute 0.15 #; Lymphocytes # 0.4 10*3/uL (1.4-4.0); Lymphocytes % 4.3 % (21.3-54.2); Mean Corpuscular HGB Conc 30.9 GM/DL (32-36); Mean Corpuscular Volume 84.9 FL (87-102); Mean Platelet Volume 10.9 FL (9.6-12.0); Monocytes % 3.2 % (1.7-12.7); Neutrophils % 90.5 % (38.7-73.9); Platelet Count 114 T/CUMM (130-400); Red Blood Count 4.43 MC/CUMM (3.8-5.5); Red Cell Distribution Width 18.2 % (9.3-17.3); White Blood Count 8.5 T/CUMM (4-12)
[2020-07-13] MEDS: MEROPENEM 500 MG in SODIUM CHLORIDE 0.9% 100 ML IV SCH ×4 (05:20→21:30)
[2020-07-13 05:30] LABS: CKMB % 15.3 %; Calcium 8.6 MG/DL (8.5-10.1); Osmolality,Calculated 278.7 MOS/KG (273-304); Potassium 3.9 MMOL/L (3.5-5.1)
[2020-07-13 05:31] LABS: Hypochromasia Slight; Lymphocytes 4 % (20-55); Microcytosis Slight; Platelet Estimate Decreased; Risk Ratio 2.89; Segmented Neutrophils 95 % (50-85); Total Cells Counted 100; Troponin I 0.055 NG/ML (0.00-0.045); VLDL CHOLESTEROL 29.2 MG/DL
[2020-07-13] MEDS: INSULIN LISPRO 100 UNIT/ML SUBCUT SCH ×4 (08:09→21:37)
[2020-07-13] MEDS: ERGOCALCIFEROL 50,000 UNIT CAPSULE PO SCH (08:10)
[2020-07-13] MEDS: acetaZOLAMIDE 250 MG TABLET PO SCH ×2 (08:10→21:23)
[2020-07-13] MEDS: GABAPENTIN 300 MG CAPSULE PO SCH ×3 (08:10→21:24)
[2020-07-13] MEDS: POTASSIUM CHLORIDE 20 MEQ TABLET PO SCH ×2 (08:10→21:24)
[2020-07-13] MEDS: ASPIRIN EC 81 MG TABLET PO SCH (08:10)
[2020-07-13] MEDS: THEOPHYLLINE ER 300 MG TABLET PO SCH ×2 (08:10→16:44)
[2020-07-13] MEDS: METHADONE 10 MG TABLET PO SCH (08:11)
[2020-07-13] MEDS: TAMSULOSIN 0.4 MG CAPSULE PO SCH (08:11)
[2020-07-13] MEDS: methylPREDNISolone SOD SUC 40 MG/1 ML VIAL IV SCH ×2 (08:12→21:26)
[2020-07-13] MEDS: ENOXAPARIN 40 MG/0.4 ML SYRINGE SUBCUT SCH (08:12)
[2020-07-13] MEDS: FAMOTIDINE 8 MG/ML 50 ML/BOTTLE PO SCH ×2 (09:37→21:28)
[2020-07-13] MEDS: NICOTINE 21 MG/24 HR PATCH TRANSDERM PRN (15:04)
[2020-07-13] MEDS: ACETAMINOPHEN 325 MG TABLET PO PRN ×2 (16:43→21:25)
[2020-07-13] MEDS: atenoloL 25 MG TABLET PO SCH (21:24)
[2020-07-13] MEDS: guaiFENesin/DM ER 600-30 MG TABLET PO PRN (21:24)
[2020-07-13] MEDS: MELATONIN 3 MG TABLET PO PRN (21:24)
[2020-07-14] MEDS: ALBUTEROL/IPRATROPIUM 3 ML NEB RESP TX SCH ×4 (02:08→20:27)
[2020-07-14] MEDS: MEROPENEM 500 MG in SODIUM CHLORIDE 0.9% 100 ML IV SCH ×4 (04:57→22:15)
[2020-07-14 06:35] LABS: Basophils % 0.2 % (0.0-0.8); Hematocrit 39.3 VOL% (35.7-47.0); Hemoglobin 11.9 GM/DL (12.0-16.0); Immature Granulocytes % 1.4 %; Immature Granulocytes Absolute 0.12 #; Lymphocytes # 0.3 10*3/uL (1.4-4.0); Lymphocytes % 3.8 % (21.3-54.2); Mean Corpuscular HGB Conc 30.3 GM/DL (32-36); Mean Corpuscular Volume 87.1 FL (87-102); Mean Platelet Volume 10.5 FL (9.6-12.0); Monocytes % 2.5 % (1.7-12.7); Neutrophils % 92.1 % (38.7-73.9); Platelet Count 117 T/CUMM (130-400); Red Blood Count 4.51 MC/CUMM (3.8-5.5); Red Cell Distribution Width 18.6 % (9.3-17.3); White Blood Count 8.8 T/CUMM (4-12)
[2020-07-14 06:56] LABS: Osmolality,Calculated 281.5 MOS/KG (273-304); Potassium 4.1 MMOL/L (3.5-5.1)
[2020-07-14 07:02] LABS: Hypochromasia 1+; Lymphocytes 2 % (20-55); Platelet Estimate Decreased; Segmented Neutrophils 96 % (50-85); Total Cells Counted 100
[2020-07-14] MEDS: INSULIN LISPRO 100 UNIT/ML SUBCUT SCH ×4 (08:37→22:15)
[2020-07-14] MEDS: TAMSULOSIN 0.4 MG CAPSULE PO SCH (09:30)
[2020-07-14] MEDS: methylPREDNISolone SOD SUC 40 MG/1 ML VIAL IV SCH ×2 (09:30→22:12)
[2020-07-14] MEDS: FAMOTIDINE 8 MG/ML 50 ML/BOTTLE PO SCH ×2 (09:30→22:11)
[2020-07-14] MEDS: METHADONE 10 MG TABLET PO SCH (09:30)
[2020-07-14] MEDS: POTASSIUM CHLORIDE 20 MEQ TABLET PO SCH ×2 (09:30→22:13)
[2020-07-14] MEDS: ASPIRIN EC 81 MG TABLET PO SCH (09:30)
[2020-07-14] MEDS: acetaZOLAMIDE 250 MG TABLET PO SCH ×2 (09:30→22:13)
[2020-07-14] MEDS: ENOXAPARIN 40 MG/0.4 ML SYRINGE SUBCUT SCH (09:30)
[2020-07-14] MEDS: GABAPENTIN 300 MG CAPSULE PO SCH ×3 (09:30→22:12)
[2020-07-14] MEDS: ACETAMINOPHEN 325 MG TABLET PO PRN (09:30)
[2020-07-14] MEDS: THEOPHYLLINE ER 300 MG TABLET PO SCH ×2 (09:30→16:42)
[2020-07-14] MEDS ORDERED: busPIRone 5 MG TABLET PO SCH (21:00)
[2020-07-14] MEDS: busPIRone 5 MG TABLET PO SCH (22:14)
[2020-07-14] MEDS: atenoloL 25 MG TABLET PO SCH (22:14)
[2020-07-15] MEDS: ALBUTEROL/IPRATROPIUM 3 ML NEB RESP TX SCH ×4 (00:29→19:59)
[2020-07-15] MEDS: MEROPENEM 500 MG in SODIUM CHLORIDE 0.9% 100 ML IV SCH ×4 (03:39→21:28)
[2020-07-15 05:54] LABS: Basophils % 0.1 % (0.0-0.8); Eosinophils % 0.1 % (0.00-10.9); Hematocrit 39.5 VOL% (35.7-47.0); Hemoglobin 12.4 GM/DL (12.0-16.0); Immature Granulocytes % 1.4 %; Immature Granulocytes Absolute 0.13 #; Lymphocytes # 0.9 10*3/uL (1.4-4.0); Lymphocytes % 9.3 % (21.3-54.2); Mean Corpuscular HGB Conc 31.4 GM/DL (32-36); Mean Corpuscular Volume 84.2 FL (87-102); Mean Platelet Volume 9.9 FL (9.6-12.0); Monocytes % 10.8 % (1.7-12.7); Neutrophils % 78.3 % (38.7-73.9); Platelet Count 113 T/CUMM (130-400); Red Blood Count 4.69 MC/CUMM (3.8-5.5); Red Cell Distribution Width 19.4 % (9.3-17.3); White Blood Count 9.3 T/CUMM (4-12)
[2020-07-15 06:17] LABS: Calcium 8.7 MG/DL (8.5-10.1); Osmolality,Calculated 274.7 MOS/KG (273-304); Potassium 3.9 MMOL/L (3.5-5.1)
[2020-07-15] MEDS: INSULIN LISPRO 100 UNIT/ML SUBCUT SCH ×4 (08:56→21:30)
[2020-07-15] MEDS: TAMSULOSIN 0.4 MG CAPSULE PO SCH (09:09)
[2020-07-15] MEDS: acetaZOLAMIDE 250 MG TABLET PO SCH ×2 (09:09→21:29)
[2020-07-15] MEDS: THEOPHYLLINE ER 300 MG TABLET PO SCH ×2 (09:09→16:01)
[2020-07-15] MEDS: ASPIRIN EC 81 MG TABLET PO SCH (09:10)
[2020-07-15] MEDS: busPIRone 5 MG TABLET PO SCH ×2 (09:10→21:29)
[2020-07-15] MEDS: FAMOTIDINE 8 MG/ML 50 ML/BOTTLE PO SCH ×2 (09:10→21:33)
[2020-07-15] MEDS: GABAPENTIN 300 MG CAPSULE PO SCH ×3 (09:10→21:29)
[2020-07-15] MEDS: POTASSIUM CHLORIDE 20 MEQ TABLET PO SCH ×2 (09:10→21:29)
[2020-07-15] MEDS: methylPREDNISolone SOD SUC 40 MG/1 ML VIAL IV SCH ×2 (09:11→21:28)
[2020-07-15] MEDS: ENOXAPARIN 40 MG/0.4 ML SYRINGE SUBCUT SCH (09:12)
[2020-07-15] MEDS: METHADONE 10 MG TABLET PO SCH (13:48)
[2020-07-15] MEDS: atenoloL 25 MG TABLET PO SCH (21:29)
[2020-07-15] MEDS: MELATONIN 3 MG TABLET PO PRN (21:29)
[2020-07-16] MEDS: ALBUTEROL/IPRATROPIUM 3 ML NEB RESP TX SCH ×5 (00:02→20:05)
[2020-07-16] MEDS: MEROPENEM 500 MG in SODIUM CHLORIDE 0.9% 100 ML IV SCH ×4 (04:10→23:19)
[2020-07-16 07:01] LABS: Hematocrit 40.8 VOL% (35.7-47.0); Hemoglobin 12.4 GM/DL (12.0-16.0); Immature Granulocytes % 1.2 %; Immature Granulocytes Absolute 0.11 #; Lymphocytes # 0.4 10*3/uL (1.4-4.0); Lymphocytes % 4.3 % (21.3-54.2); Mean Corpuscular HGB Conc 30.4 GM/DL (32-36); Mean Corpuscular Volume 87.6 FL (87-102); Mean Platelet Volume 10.3 FL (9.6-12.0); Monocytes % 3.4 % (1.7-12.7); Neutrophils % 91.1 % (38.7-73.9); Platelet Count 129 T/CUMM (130-400); Red Blood Count 4.66 MC/CUMM (3.8-5.5); Red Cell Distribution Width 18.8 % (9.3-17.3); White Blood Count 9.5 T/CUMM (4-12)
[2020-07-16 07:20] LABS: Osmolality,Calculated 280.5 MOS/KG (273-304); Potassium 4.2 MMOL/L (3.5-5.1)
[2020-07-16 07:23] LABS: Hypochromasia 1+; Lymphocytes 5 % (20-55); Segmented Neutrophils 90 % (50-85); Total Cells Counted 100
[2020-07-16 07:24] LABS: Microcytosis 1+; Ovalocytes Slight; Platelet Estimate Adequate
[2020-07-16] MEDS: methylPREDNISolone SOD SUC 40 MG/1 ML VIAL IV SCH ×2 (09:56→23:21)
[2020-07-16] MEDS: ENOXAPARIN 40 MG/0.4 ML SYRINGE SUBCUT SCH (09:59)
[2020-07-16] MEDS: acetaZOLAMIDE 250 MG TABLET PO SCH ×2 (09:59→23:20)
[2020-07-16] MEDS: INSULIN LISPRO 100 UNIT/ML SUBCUT SCH ×4 (09:59→23:21)
[2020-07-16] MEDS: THEOPHYLLINE ER 300 MG TABLET PO SCH ×2 (10:00→16:54)
[2020-07-16] MEDS: METHADONE 10 MG TABLET PO SCH (10:00)
[2020-07-16] MEDS: POTASSIUM CHLORIDE 20 MEQ TABLET PO SCH ×2 (10:00→23:20)
[2020-07-16] MEDS: GABAPENTIN 300 MG CAPSULE PO SCH ×3 (10:00→23:21)
[2020-07-16] MEDS: ASPIRIN EC 81 MG TABLET PO SCH (10:00)
[2020-07-16] MEDS: busPIRone 5 MG TABLET PO SCH ×4 (10:00→23:20)
[2020-07-16] MEDS: TAMSULOSIN 0.4 MG CAPSULE PO SCH (10:01)
[2020-07-16] MEDS: FAMOTIDINE 8 MG/ML 50 ML/BOTTLE PO SCH ×2 (10:02→23:21)
[2020-07-16] MEDS: atenoloL 25 MG TABLET PO SCH (23:20)
[2020-07-16] MEDS: MELATONIN 3 MG TABLET PO PRN (23:20)
[2020-07-17] MEDS: ALBUTEROL/IPRATROPIUM 3 ML NEB RESP TX SCH ×4 (05:07→18:03)
[2020-07-17] MEDS: MEROPENEM 500 MG in SODIUM CHLORIDE 0.9% 100 ML IV SCH ×4 (05:56→21:58)
[2020-07-17] MEDS: acetaZOLAMIDE 250 MG TABLET PO SCH ×2 (08:47→21:57)
[2020-07-17] MEDS: POTASSIUM CHLORIDE 20 MEQ TABLET PO SCH ×2 (08:48→21:57)
[2020-07-17] MEDS: ASPIRIN EC 81 MG TABLET PO SCH (08:48)
[2020-07-17] MEDS: METHADONE 10 MG TABLET PO SCH (08:48)
[2020-07-17] MEDS: TAMSULOSIN 0.4 MG CAPSULE PO SCH (08:48)
[2020-07-17] MEDS: GABAPENTIN 300 MG CAPSULE PO SCH ×3 (08:48→21:57)
[2020-07-17] MEDS: THEOPHYLLINE ER 300 MG TABLET PO SCH ×2 (08:48→16:34)
[2020-07-17] MEDS: methylPREDNISolone SOD SUC 40 MG/1 ML VIAL IV SCH ×2 (08:49→21:58)
[2020-07-17] MEDS: INSULIN LISPRO 100 UNIT/ML SUBCUT SCH ×4 (08:49→21:57)
[2020-07-17] MEDS: ENOXAPARIN 40 MG/0.4 ML SYRINGE SUBCUT SCH (08:49)
[2020-07-17] MEDS: FAMOTIDINE 8 MG/ML 50 ML/BOTTLE PO SCH ×3 (09:12→21:58)
[2020-07-17] MEDS: busPIRone 5 MG TABLET PO SCH ×2 (14:40→21:57)
[2020-07-17] MEDS: atenoloL 25 MG TABLET PO SCH (21:58)
[2020-07-17] MEDS: ACETAMINOPHEN 325 MG TABLET PO PRN (21:59)
[2020-07-18] MEDS: ALBUTEROL/IPRATROPIUM 3 ML NEB RESP TX SCH ×4 (01:38→19:37)
[2020-07-18] MEDS: MEROPENEM 500 MG in SODIUM CHLORIDE 0.9% 100 ML IV SCH ×2 (03:25→09:01)
[2020-07-18 05:47] LABS: Basophils % 0.1 % (0.0-0.8); Hematocrit 36.8 VOL% (35.7-47.0); Immature Granulocytes Absolute 0.08 #; Lymphocytes # 0.3 10*3/uL (1.4-4.0); Lymphocytes % 3.8 % (21.3-54.2); Mean Corpuscular HGB Conc 29.9 GM/DL (32-36); Mean Corpuscular Volume 88.2 FL (87-102); Monocytes % 2.7 % (1.7-12.7); Neutrophils % 92.4 % (38.7-73.9); Platelet Count 109 T/CUMM (130-400); Red Blood Count 4.17 MC/CUMM (3.8-5.5); Red Cell Distribution Width 18.2 % (9.3-17.3); White Blood Count 8.1 T/CUMM (4-12)
[2020-07-18 06:26] LABS: Hypochromasia 1+; Lymphocytes 2 % (20-55); Microcytosis 1+; Ovalocytes Slight; Platelet Estimate Adequate; Segmented Neutrophils 95 % (50-85); Total Cells Counted 100
[2020-07-18 06:33] LABS: Calcium 8.9 MG/DL (8.5-10.1); Osmolality,Calculated 277.8 MOS/KG (273-304); Potassium 5.1 MMOL/L (3.5-5.1)
[2020-07-18] MEDS: ENOXAPARIN 40 MG/0.4 ML SYRINGE SUBCUT SCH (08:58)
[2020-07-18] MEDS: THEOPHYLLINE ER 300 MG TABLET PO SCH ×2 (08:59→18:56)
[2020-07-18] MEDS: GABAPENTIN 300 MG CAPSULE PO SCH ×3 (08:59→21:36)
[2020-07-18] MEDS: acetaZOLAMIDE 250 MG TABLET PO SCH ×2 (08:59→21:36)
[2020-07-18] MEDS: POTASSIUM CHLORIDE 20 MEQ TABLET PO SCH ×2 (08:59→21:36)
[2020-07-18] MEDS: METHADONE 10 MG TABLET PO SCH (08:59)
[2020-07-18] MEDS: INSULIN LISPRO 100 UNIT/ML SUBCUT SCH ×4 (09:00→21:36)
[2020-07-18] MEDS: TAMSULOSIN 0.4 MG CAPSULE PO SCH (09:00)
[2020-07-18] MEDS: ASPIRIN EC 81 MG TABLET PO SCH (09:00)
[2020-07-18] MEDS: methylPREDNISolone SOD SUC 40 MG/1 ML VIAL IV SCH (09:08)
[2020-07-18] MEDS: FAMOTIDINE 8 MG/ML 50 ML/BOTTLE PO SCH ×2 (09:09→21:37)
[2020-07-18] MEDS ORDERED: ALUM/MAG/SIMETH/LIDO VISC 1:1 30 ML BOTTLE PO ONE (15:00)
[2020-07-18] MEDS: busPIRone 5 MG TABLET PO SCH ×2 (15:56→21:36)
[2020-07-18] MEDS ORDERED: SODIUM CHLORIDE 0.9% 1,000 ML IV SCH (16:30)
[2020-07-18 17:04] LABS: Basophils % 0.1 % (0.0-0.8); Hematocrit 34.2 VOL% (35.7-47.0); Hemoglobin 10.4 GM/DL (12.0-16.0); Immature Granulocytes % 1.5 %; Immature Granulocytes Absolute 0.19 #; Lymphocytes # 0.4 10*3/uL (1.4-4.0); Mean Corpuscular HGB Conc 30.4 GM/DL (32-36); Mean Corpuscular Volume 87.5 FL (87-102); Mean Platelet Volume 11.1 FL (9.6-12.0); Monocytes % 5.7 % (1.7-12.7); Neutrophils % 89.7 % (38.7-73.9); Platelet Count 75 T/CUMM (130-400); Red Blood Count 3.91 MC/CUMM (3.8-5.5); Red Cell Distribution Width 18.3 % (9.3-17.3); White Blood Count 12.5 T/CUMM (4-12)
[2020-07-18] MEDS: SODIUM CHLORIDE 0.9% 1,000 ML IV SCH (18:58)
[2020-07-18 20:20] LABS: Band Neutrophils 1 % (0-10); Lymphocytes 5 % (20-55); Platelet Estimate Decreased; Segmented Neutrophils 90 % (50-85); Total Cells Counted 100
[2020-07-18] MEDS: atenoloL 25 MG TABLET PO SCH (21:36)
[2020-07-18] MEDS: PANTOPRAZOLE 40 MG VIAL IV SCH (21:36)
[2020-07-18] MEDS: CHOLESTYRAMINE 4 GM PACK PO SCH (21:37)
[2020-07-18 22:32] LABS: Hematocrit 31.3 VOL% (35.7-47.0); Hemoglobin 9.6 GM/DL (12.0-16.0)
[2020-07-19] MEDS: ALBUTEROL/IPRATROPIUM 3 ML NEB RESP TX SCH ×4 (00:54→19:30)
[2020-07-19 06:37] LABS: Basophils % 0.1 % (0.0-0.8); Eosinophils % 0.1 % (0.00-10.9); Hematocrit 29.2 VOL% (35.7-47.0); Hemoglobin 8.8 GM/DL (12.0-16.0); Immature Granulocytes % 1.8 %; Immature Granulocytes Absolute 0.17 #; Lymphocytes # 1.1 10*3/uL (1.4-4.0); Lymphocytes % 11.3 % (21.3-54.2); Mean Corpuscular HGB Conc 30.1 GM/DL (32-36); Mean Corpuscular Volume 88.8 FL (87-102); Mean Platelet Volume 10.6 FL (9.6-12.0); Monocytes % 10.3 % (1.7-12.7); NRBC # 0.02 10*3/uL; Neutrophils % 76.4 % (38.7-73.9); Platelet Count 92 T/CUMM (130-400); Red Blood Count 3.29 MC/CUMM (3.8-5.5); Red Cell Distribution Width 18.4 % (9.3-17.3); White Blood Count 9.3 T/CUMM (4-12)
[2020-07-19 06:45] LABS: Calcium 8.3 MG/DL (8.5-10.1); Osmolality,Calculated 279.5 MOS/KG (273-304); Potassium 3.9 MMOL/L (3.5-5.1)
[2020-07-19] MEDS: INSULIN LISPRO 100 UNIT/ML SUBCUT SCH ×4 (07:45→20:42)
[2020-07-19] MEDS: ACETAMINOPHEN 325 MG TABLET PO PRN ×2 (07:56→18:41)
[2020-07-19] MEDS: NICOTINE 21 MG/24 HR PATCH TRANSDERM PRN (07:59)
[2020-07-19] MEDS: GABAPENTIN 300 MG CAPSULE PO SCH ×3 (08:01→20:32)
[2020-07-19] MEDS: PANTOPRAZOLE 40 MG VIAL IV SCH ×2 (08:01→20:32)
[2020-07-19] MEDS: acetaZOLAMIDE 250 MG TABLET PO SCH ×2 (08:01→20:31)
[2020-07-19] MEDS: THEOPHYLLINE ER 300 MG TABLET PO SCH ×2 (08:01→17:07)
[2020-07-19] MEDS: CHOLESTYRAMINE 4 GM PACK PO SCH (08:02)
[2020-07-19] MEDS: predniSONE 20 MG TABLET PO SCH (08:02)
[2020-07-19] MEDS: METHADONE 10 MG TABLET PO SCH (08:02)
[2020-07-19] MEDS: TAMSULOSIN 0.4 MG CAPSULE PO SCH (08:02)
[2020-07-19] MEDS: POTASSIUM CHLORIDE 20 MEQ TABLET PO SCH ×2 (08:02→20:32)
[2020-07-19] MEDS: ASPIRIN EC 81 MG TABLET PO SCH (08:02)
[2020-07-19] MEDS: FAMOTIDINE 8 MG/ML 50 ML/BOTTLE PO SCH ×2 (08:10→21:00)
[2020-07-19] MEDS: SODIUM CHLORIDE 0.9% 1,000 ML IV SCH ×2 (08:10→23:24)
[2020-07-19 08:47] LABS: Platelet Estimate Decreased
[2020-07-19 08:48] LABS: Anisocytosis 1+; Macrocytosis Slight; Tear Drop Cells Few
[2020-07-19] MEDS: LOPERAMIDE 2 MG CAPSULE PO PRN ×2 (10:30→20:36)
[2020-07-19 12:23] LABS: Hematocrit 27.4 VOL% (35.7-47.0); Hemoglobin 8.6 GM/DL (12.0-16.0)
[2020-07-19] MEDS ORDERED: SODIUM CHLORIDE 0.9% 1,000 ML IV PRN (12:48)
[2020-07-19 16:16] LABS: Hematocrit 28.2 VOL% (35.7-47.0); Hemoglobin 8.3 GM/DL (12.0-16.0)
[2020-07-19] MEDS: OXYBUTYNIN 5 MG TABLET PO PRN ×2 (17:07→23:24)
[2020-07-19] MEDS: busPIRone 5 MG TABLET PO SCH ×2 (17:07→20:32)
[2020-07-19 17:32] LABS: Bilirubin,Urine Negative (Negative); Blood, Urine Negative (Negative); Glucose,Urine (UA) Negative (Negative); Ketones,Urine Negative (Negative); Nitrite,Urine Negative (Negative); Protein,Urine Negative; RBC,Urine 1 /HPF (0-4); Urine Appearance CLEAR (Clear); Urine Color Yellow (Yellow); Urine Specific Gravity 1.015 (1.001-1.035); Urine Urobilinogen < 2.0 EU/DL (0.2-1.0)
[2020-07-19] MEDS: atenoloL 25 MG TABLET PO SCH (20:32)
[2020-07-19] MEDS: MELATONIN 3 MG TABLET PO PRN (20:36)
[2020-07-19] MEDS: CHOLESTYRAMINE/ASPARTAME 4 GM PACK PO SCH (21:16)
[2020-07-19 22:10] LABS: Hematocrit 26.4 VOL% (35.7-47.0); Hemoglobin 7.9 GM/DL (12.0-16.0)
[2020-07-20] MEDS: ALBUTEROL/IPRATROPIUM 3 ML NEB RESP TX SCH ×4 (00:20→19:56)
[2020-07-20] MEDS: ACETAMINOPHEN 325 MG TABLET PO PRN (02:43)
[2020-07-20] MEDS: DICLOFENAC 1% GEL 100 GM TUBE TOP PRN ×2 (03:45→16:40)
[2020-07-20 05:42] LABS: Calcium 8.3 MG/DL (8.5-10.1); Osmolality,Calculated 278.4 MOS/KG (273-304); Potassium 3.5 MMOL/L (3.5-5.1)
[2020-07-20 06:57] LABS: Basophils % 0.1 % (0.0-0.8); Eosinophils % 0.1 % (0.00-10.9); Hematocrit 25.5 VOL% (35.7-47.0); Hemoglobin 7.9 GM/DL (12.0-16.0); Immature Granulocytes % 1.4 %; Lymphocytes # 0.8 10*3/uL (1.4-4.0); Lymphocytes % 11.5 % (21.3-54.2); Mean Corpuscular Volume 88.5 FL (87-102); Mean Platelet Volume 9.8 FL (9.6-12.0); Monocytes % 8.2 % (1.7-12.7); Neutrophils % 78.7 % (38.7-73.9); Platelet Count 90 T/CUMM (130-400); Red Blood Count 2.88 MC/CUMM (3.8-5.5); Red Cell Distribution Width 18.9 % (9.3-17.3)
[2020-07-20] MEDS: INSULIN LISPRO 100 UNIT/ML SUBCUT SCH ×4 (07:25→22:43)
[2020-07-20 08:10] LABS: Anisocytosis 1+; Ovalocytes Few; Platelet Estimate Decreased; Tear Drop Cells Few
[2020-07-20] MEDS: THEOPHYLLINE ER 300 MG TABLET PO SCH ×2 (08:34→16:31)
[2020-07-20] MEDS: predniSONE 20 MG TABLET PO SCH (08:34)
[2020-07-20] MEDS: ERGOCALCIFEROL 50,000 UNIT CAPSULE PO SCH (08:34)
[2020-07-20] MEDS: GABAPENTIN 300 MG CAPSULE PO SCH ×3 (08:34→22:42)
[2020-07-20] MEDS: ASPIRIN EC 81 MG TABLET PO SCH (08:34)
[2020-07-20] MEDS: POTASSIUM CHLORIDE 20 MEQ TABLET PO SCH ×2 (08:34→22:42)
[2020-07-20] MEDS: TAMSULOSIN 0.4 MG CAPSULE PO SCH (08:34)
[2020-07-20] MEDS: METHADONE 10 MG TABLET PO SCH (08:35)
[2020-07-20] MEDS: acetaZOLAMIDE 250 MG TABLET PO SCH ×2 (08:35→22:42)
[2020-07-20] MEDS: PANTOPRAZOLE 40 MG VIAL IV SCH ×2 (08:35→22:43)
[2020-07-20] MEDS: SODIUM CHLORIDE 0.9% 1,000 ML IV SCH (08:36)
[2020-07-20] MEDS: FAMOTIDINE 8 MG/ML 50 ML/BOTTLE PO SCH ×2 (08:39→22:43)
[2020-07-20] MEDS: CHOLESTYRAMINE/ASPARTAME 4 GM PACK PO SCH ×2 (09:20→23:27)
[2020-07-20] MEDS: busPIRone 5 MG TABLET PO SCH ×2 (16:31→22:42)
[2020-07-20] MEDS: NYSTATIN CREAM 15 GM TUBE TOP SCH ×2 (18:38→22:44)
[2020-07-20 22:17] LABS: Hematocrit 35.1 VOL% (35.7-47.0)
[2020-07-20] MEDS: MELATONIN 3 MG TABLET PO PRN (22:41)
[2020-07-20] MEDS: atenoloL 25 MG TABLET PO SCH (22:41)
[2020-07-20] MEDS: LOPERAMIDE 2 MG CAPSULE PO PRN (22:58)
[2020-07-21] MEDS: ALBUTEROL/IPRATROPIUM 3 ML NEB RESP TX SCH ×4 (00:21→19:50)
[2020-07-21] MEDS: SODIUM CHLORIDE 0.9% 1,000 ML IV SCH ×2 (00:34→14:34)
[2020-07-21] MEDS: ONDANSETRON 4 MG/2 ML VIAL IV PRN (00:54)
[2020-07-21] MEDS: DICLOFENAC 1% GEL 100 GM TUBE TOP PRN (00:54)
[2020-07-21] MEDS: ACETAMINOPHEN 325 MG TABLET PO PRN ×3 (04:23→21:25)
[2020-07-21 05:28] LABS: Basophils % 0.1 % (0.0-0.8); Eosinophils % 0.3 % (0.00-10.9); Hematocrit 31.4 VOL% (35.7-47.0); Hemoglobin 10.1 GM/DL (12.0-16.0); Immature Granulocytes % 2.2 %; Lymphocytes # 0.8 10*3/uL (1.4-4.0); Lymphocytes % 8.9 % (21.3-54.2); Mean Corpuscular HGB Conc 32.2 GM/DL (32-36); Mean Platelet Volume 9.5 FL (9.6-12.0); Monocytes % 7.6 % (1.7-12.7); NRBC # 0.02 10*3/uL; Neutrophils % 80.9 % (38.7-73.9); Platelet Count 102 T/CUMM (130-400); Red Blood Count 3.57 MC/CUMM (3.8-5.5); Red Cell Distribution Width 17.5 % (9.3-17.3)
[2020-07-21 05:47] LABS: Calcium 8.2 MG/DL (8.5-10.1); Potassium 3.1 MMOL/L (3.5-5.1)
[2020-07-21 05:53] LABS: Hypochromasia 1+; Microcytosis 1+; Polychromasia Slight
[2020-07-21 05:54] LABS: Ovalocytes Slight; Platelet Estimate Adequate
[2020-07-21] MEDS ORDERED: LACTATED RINGERS 1,000 ML IV SCH (10:26)
[2020-07-21] MEDS ORDERED: propofoL 200 MG/20 ML VIAL IV ONE (12:06)
[2020-07-21] MEDS ORDERED: LIDOCAINE 2% 5 ML VIAL ONE (12:06)
[2020-07-21] MEDS ORDERED: PHENYLEPHRINE 1 MG/10 ML SYRINGE IV ONE (12:20)
[2020-07-21] MEDS: ASPIRIN EC 81 MG TABLET PO SCH (14:27)
[2020-07-21] MEDS: GABAPENTIN 300 MG CAPSULE PO SCH ×3 (14:28→21:25)
[2020-07-21] MEDS: POTASSIUM CHLORIDE 20 MEQ TABLET PO SCH ×2 (14:28→21:25)
[2020-07-21] MEDS: THEOPHYLLINE ER 300 MG TABLET PO SCH ×2 (14:28→17:37)
[2020-07-21] MEDS: acetaZOLAMIDE 250 MG TABLET PO SCH ×2 (14:28→21:25)
[2020-07-21] MEDS: TAMSULOSIN 0.4 MG CAPSULE PO SCH (14:28)
[2020-07-21] MEDS: POTASSIUM CHLORIDE 20 MEQ TABLET PO PRN ×2 (14:29→17:36)
[2020-07-21] MEDS: PANTOPRAZOLE 40 MG VIAL IV SCH ×2 (14:29→21:26)
[2020-07-21] MEDS: predniSONE 20 MG TABLET PO SCH (14:29)
[2020-07-21] MEDS: CHOLESTYRAMINE/ASPARTAME 4 GM PACK PO SCH ×2 (14:30→22:07)
[2020-07-21] MEDS: FAMOTIDINE 8 MG/ML 50 ML/BOTTLE PO SCH ×2 (14:30→21:26)
[2020-07-21] MEDS: INSULIN LISPRO 100 UNIT/ML SUBCUT SCH ×4 (14:32→22:07)
[2020-07-21] MEDS: NYSTATIN CREAM 15 GM TUBE TOP SCH ×3 (14:33→21:27)
[2020-07-21] MEDS: busPIRone 5 MG TABLET PO SCH ×2 (14:38→21:25)
[2020-07-21] MEDS: METHADONE 10 MG TABLET PO SCH (15:07)
[2020-07-21] MEDS: ENOXAPARIN 100 MG/ML SYRINGE SUBCUT SCH (17:37)
[2020-07-21] MEDS: atenoloL 25 MG TABLET PO SCH (21:25)
[2020-07-22] MEDS: ALBUTEROL/IPRATROPIUM 3 ML NEB RESP TX SCH ×4 (01:00→23:18)
[2020-07-22] MEDS: SODIUM CHLORIDE 0.9% 1,000 ML IV SCH ×2 (01:59→15:57)
[2020-07-22 05:34] LABS: Basophils % 0.1 % (0.0-0.8); Eosinophils # 0.1 10*3/uL (0.0-0.87); Eosinophils % 0.9 % (0.00-10.9); Hematocrit 33.9 VOL% (35.7-47.0); Hemoglobin 10.6 GM/DL (12.0-16.0); Immature Granulocytes % 1.7 %; Immature Granulocytes Absolute 0.13 #; Lymphocytes # 0.5 10*3/uL (1.4-4.0); Lymphocytes % 6.2 % (21.3-54.2); Mean Corpuscular HGB Conc 31.3 GM/DL (32-36); Mean Corpuscular Volume 89.4 FL (87-102); Mean Platelet Volume 10.3 FL (9.6-12.0); Monocytes % 7.8 % (1.7-12.7); Neutrophils % 83.3 % (38.7-73.9); Platelet Count 101 T/CUMM (130-400); Red Blood Count 3.79 MC/CUMM (3.8-5.5); Red Cell Distribution Width 17.7 % (9.3-17.3); White Blood Count 7.5 T/CUMM (4-12)
[2020-07-22 06:01] LABS: Calcium 8.7 MG/DL (8.5-10.1); Osmolality,Calculated 273.4 MOS/KG (273-304); Potassium 5.1 MMOL/L (3.5-5.1)
[2020-07-22 06:05] LABS: Hypochromasia 1+; Microcytosis 1+; Ovalocytes Slight; Platelet Estimate Decreased; Polychromasia Slight
[2020-07-22 06:29] LABS: INR 0.9; PT Patient Result 10.6 SECS (10.5-12.0); Partial Thromboplastin Time 21.8 SECS (23.9-33.8)
[2020-07-22] MEDS: ENOXAPARIN 100 MG/ML SYRINGE SUBCUT SCH ×2 (09:02→21:23)
[2020-07-22] MEDS: PANTOPRAZOLE 40 MG VIAL IV SCH (09:03)
[2020-07-22] MEDS: predniSONE 20 MG TABLET PO SCH (09:04)
[2020-07-22] MEDS: GABAPENTIN 300 MG CAPSULE PO SCH ×3 (09:04→21:23)
[2020-07-22] MEDS: METHADONE 10 MG TABLET PO SCH (09:04)
[2020-07-22] MEDS: WARFARIN 5 MG TABLET PO SCH (09:04)
[2020-07-22] MEDS: THEOPHYLLINE ER 300 MG TABLET PO SCH ×2 (09:04→17:51)
[2020-07-22] MEDS: POTASSIUM CHLORIDE 20 MEQ TABLET PO SCH ×2 (09:05→21:22)
[2020-07-22] MEDS: acetaZOLAMIDE 250 MG TABLET PO SCH ×2 (09:05→21:23)
[2020-07-22] MEDS: TAMSULOSIN 0.4 MG CAPSULE PO SCH (09:05)
[2020-07-22] MEDS: ASPIRIN EC 81 MG TABLET PO SCH (09:05)
[2020-07-22] MEDS: NYSTATIN CREAM 15 GM TUBE TOP SCH ×3 (09:06→21:19)
[2020-07-22] MEDS: INSULIN LISPRO 100 UNIT/ML SUBCUT SCH ×4 (09:24→22:19)
[2020-07-22] MEDS: FAMOTIDINE 8 MG/ML 50 ML/BOTTLE PO SCH ×2 (10:24→21:23)
[2020-07-22] MEDS: CHOLESTYRAMINE/ASPARTAME 4 GM PACK PO SCH ×2 (12:24→22:19)
[2020-07-22] MEDS: busPIRone 5 MG TABLET PO SCH ×2 (16:21→21:22)
[2020-07-22] MEDS: PANTOPRAZOLE 40 MG TABLET PO SCH (17:51)
[2020-07-22] MEDS: ACYCLOVIR INJ 300 MG in SODIUM CHLORIDE 0.9% 100 ML IV SCH (18:13)
[2020-07-22] MEDS: atenoloL 25 MG TABLET PO SCH (21:22)
[2020-07-22] MEDS: ACETAMINOPHEN 325 MG TABLET PO PRN (22:25)
[2020-07-23] MEDS: ACYCLOVIR INJ 300 MG in SODIUM CHLORIDE 0.9% 100 ML IV SCH ×2 (00:54→09:52)
[2020-07-23] MEDS: SODIUM CHLORIDE 0.9% 1,000 ML IV SCH ×2 (01:52→03:10)
[2020-07-23] MEDS: ALBUTEROL/IPRATROPIUM 3 ML NEB RESP TX SCH ×3 (03:00→13:00)
[2020-07-23] MEDS: PANTOPRAZOLE 40 MG TABLET PO SCH (05:39)
[2020-07-23 06:33] LABS: Basophils % 0.2 % (0.0-0.8); Eosinophils # 0.1 10*3/uL (0.0-0.87); Eosinophils % 1.4 % (0.00-10.9); Hematocrit 34.4 VOL% (35.7-47.0); Hemoglobin 11.2 GM/DL (12.0-16.0); Immature Granulocytes % 1.9 %; Immature Granulocytes Absolute 0.12 #; Lymphocytes % 14.9 % (21.3-54.2); Mean Corpuscular HGB Conc 32.6 GM/DL (32-36); Mean Platelet Volume 9.2 FL (9.6-12.0); Monocytes % 8.8 % (1.7-12.7); Neutrophils % 72.8 % (38.7-73.9); Platelet Count 138 T/CUMM (130-400); Red Blood Count 3.91 MC/CUMM (3.8-5.5); Red Cell Distribution Width 18.2 % (9.3-17.3); White Blood Count 6.4 T/CUMM (4-12)
[2020-07-23 06:44] LABS: INR 1.1; PT Patient Result 11.9 SECS (10.5-12.0); Partial Thromboplastin Time 27.6 SECS (23.9-33.8)
[2020-07-23 08:23] LABS: Calcium 8.7 MG/DL (8.5-10.1); Osmolality,Calculated 278.1 MOS/KG (273-304); Potassium 3.1 MMOL/L (3.5-5.1)
[2020-07-23] MEDS: ASPIRIN EC 81 MG TABLET PO SCH (09:50)
[2020-07-23] MEDS: POTASSIUM CHLORIDE 20 MEQ TABLET PO SCH (09:50)
[2020-07-23] MEDS: TAMSULOSIN 0.4 MG CAPSULE PO SCH (09:50)
[2020-07-23] MEDS: THEOPHYLLINE ER 300 MG TABLET PO SCH (09:50)
[2020-07-23] MEDS: acetaZOLAMIDE 250 MG TABLET PO SCH (09:50)
[2020-07-23] MEDS: GABAPENTIN 300 MG CAPSULE PO SCH ×2 (09:50→14:54)
[2020-07-23] MEDS: WARFARIN 5 MG TABLET PO SCH (09:50)
[2020-07-23] MEDS: predniSONE 20 MG TABLET PO SCH (09:50)
[2020-07-23] MEDS: NYSTATIN CREAM 15 GM TUBE TOP SCH ×2 (09:51→14:55)
[2020-07-23] MEDS: FAMOTIDINE 8 MG/ML 50 ML/BOTTLE PO SCH (09:51)
[2020-07-23] MEDS: METHADONE 10 MG TABLET PO SCH (09:51)
[2020-07-23] MEDS: ENOXAPARIN 100 MG/ML SYRINGE SUBCUT SCH (09:52)
[2020-07-23] MEDS: INSULIN LISPRO 100 UNIT/ML SUBCUT SCH ×2 (10:12→11:43)
[2020-07-23] MEDS: CHOLESTYRAMINE/ASPARTAME 4 GM PACK PO SCH (11:08)
[2020-07-23] MEDS: busPIRone 5 MG TABLET PO SCH (14:54)
[2020-07-23] MEDS: NICOTINE 21 MG/24 HR PATCH TRANSDERM PRN (14:57)
[2020-07-23 15:02] VITALS: BP 103/61
== END 2020-07-23 17:24 | disposition home health service (06) | DRG 710 ==
LOC: EDUNIT# → EDBD → N.ED 00:24 → N.EDINP 02:15 → SUATTDRO 02:15 → N.ICU 03:08 → N.CC 06-21 15:00 → N.5E 06-29 10:56
PROVIDERS: ADMIT Internal Medicine; ATTEND Internal Medicine

== ENCOUNTER 2021-05-23 13:37 | Inpatient (IN) ==
[2021-05-23 14:29] LABS: Alanine Aminotransferase 31 U/L (13-56); Albumin 2.6 G/DL (3.4-5.0); Alkaline Phosphatase 267 U/L (45-117); Aspartate Amino Transferase 57 U/L (0-37); Blood Urea Nitrogen 16 MG/DL (7-18); Calcium 9.3 MG/DL (8.5-10.1); Carbon Dioxide 36 MMOL/L (21-32); Estimated Glom Filtration Rate 109 ML/MIN; Glucose 110 MG/DL (74-106); Potassium 4.5 MMOL/L (3.5-5.1); Sodium 136 MMOL/L (136-145); Total Protein 5.7 G/DL (6.4-8.2)
[2021-05-23 15:06] LABS: Bacteria,Urine Occasional /HPF (Few); Hyaline Casts,Urine 16 /LPF (0-3); RBC,Urine 2 /HPF (0-4); Squamous Epithelial Cell,Urine Occasional /HPF (0-10)
[2021-05-23 15:08] LABS: Urine Color Yellow (Yellow)
[2021-05-23 15:09] LABS: Bilirubin,Urine Negative (Negative); Blood, Urine Small mg/dL (Negative); Glucose,Urine (UA) Negative (Negative); Ketones,Urine Negative (Negative); Nitrite,Urine Negative (Negative); Protein,Urine Negative (Negative); Urine Appearance Clear (Clear); Urine Specific Gravity 1.025 (1.001-1.035)
[2021-05-23 15:10] LABS: Urine Urobilinogen 0.2 eU/dL (<2.0)
[2021-05-23 15:15] LABS: Basophils % 0.3 % (0.0-0.8); Hematocrit 38.7 VOL% (35.7-47.0); Hemoglobin 11.3 GM/DL (12.0-16.0); Immature Granulocytes % 0.8 %; Immature Granulocytes Absolute 0.06 #; Lymphocytes # 0.8 10*3/uL (1.4-4.0); Lymphocytes % 9.9 % (21.3-54.2); Mean Corpuscular HGB Conc 29.2 GM/DL (32-36); Mean Corpuscular Volume 99.7 FL (87-102); Mean Platelet Volume 8.9 FL (9.6-12.0); Monocytes % 11.2 % (1.7-12.7); Neutrophils % 77.8 % (38.7-73.9); Platelet Count 256 T/CUMM (130-400); Red Blood Count 3.88 MC/CUMM (3.8-5.5); White Blood Count 7.9 T/CUMM (4-12)
[2021-05-23 15:23] LABS: Arterial Base Excess iSTAT 6 MMOL/L (-2.5-2.5); Arterial Bicarbonate iSTAT 33.2 MMOL/L (20-26); Arterial O2 Saturation iSTAT 90 % (95-100); Arterial PCO2 iSTAT 59 MM HG (35-48); Arterial PO2 iSTAT 63 MM HG (80-95); Arterial Total CO2 iSTAT 35 MMO/L (23-27); Arterial pH iSTAT 7.358 (7.35-7.45)
[2021-05-23 15:24] LABS: Barbiturates Screen,Urine Negative (Negative); Benzodiazepines Screen,Urine Negative (Negative); Cannabinoid Screen,Urine Negative (Negative); Opiate Screen,Urine Negative (Negative); Phencyclidine Screen,Urine Negative (Negative)
[2021-05-23] MEDS ORDERED: MAGNESIUM SULF RIDER 4 GM/100 ML PREMIX IV PRN (16:12)
[2021-05-23] MEDS ORDERED: MAGNESIUM SULF RIDER 2 GM/50 ML PREMIX IV PRN (16:12)
[2021-05-23] MEDS ORDERED: ONDANSETRON 4 MG/2 ML VIAL IV PRN (16:12)
[2021-05-23] MEDS ORDERED: GLUCAGON 1 MG VIAL IM PRN (16:12)
[2021-05-23] MEDS ORDERED: hydrALAZINE 20 MG/1 ML VIAL IV PRN (16:12)
[2021-05-23] MEDS ORDERED: DEXTROSE 10% 250 ML BAG IV PRN (16:23)
[2021-05-23] MEDS ORDERED: LORazepam 2 MG/1 ML VIAL ONE (17:44)
[2021-05-23] MEDS ORDERED: LORazepam 2 MG/1 ML VIAL IV STA (17:49)
[2021-05-23] MEDS: FUROSEMIDE 40 MG/4 ML VIAL IV SCH (18:44)
[2021-05-23] MEDS: cefTRIAXone 1,000 MG in SODIUM CHLORIDE 0.9% 100 ML IV SCH (18:46)
[2021-05-23] MEDS ORDERED: INFLUENZA VIRUS VACCINE 0.5 ML SYRINGE IM ONE (19:00)
[2021-05-24 04:39] LABS: Arterial Base Excess iSTAT 11 MMOL/L (-2.5-2.5); Arterial Bicarbonate iSTAT 37.9 MMOL/L (20-26); Arterial O2 Saturation iSTAT 96 % (95-100); Arterial PCO2 iSTAT 62 MM HG (35-48); Arterial PO2 iSTAT 86 MM HG (80-95); Arterial Total CO2 iSTAT 40 MMO/L (23-27); Arterial pH iSTAT 7.394 (7.35-7.45)
[2021-05-24 05:54] LABS: Basophils % 0.3 % (0.0-0.8); Eosinophils % 0.3 % (0.00-10.9); Hemoglobin 11.2 GM/DL (12.0-16.0); Immature Granulocytes % 0.5 %; Immature Granulocytes Absolute 0.04 #; Lymphocytes # 1.2 10*3/uL (1.4-4.0); Mean Corpuscular HGB Conc 31.1 GM/DL (32-36); Mean Corpuscular Volume 95.2 FL (87-102); Monocytes % 12.9 % (1.7-12.7); Platelet Count 271 T/CUMM (130-400); Red Blood Count 3.78 MC/CUMM (3.8-5.5); Red Cell Distribution Width 16.6 % (9.3-17.3); White Blood Count 7.6 T/CUMM (4-12)
[2021-05-24 06:05] LABS: Alanine Aminotransferase 30 U/L (13-56); Albumin 2.3 G/DL (3.4-5.0); Alkaline Phosphatase 241 U/L (45-117); Aspartate Amino Transferase 54 U/L (0-37); Bilirubin,Total < 0.39 MG/DL (0.20-1.00); Blood Urea Nitrogen 11 MG/DL (7-18); Calcium 9.4 MG/DL (8.5-10.1); Carbon Dioxide 34 MMOL/L (21-32); Estimated Glom Filtration Rate 115 ML/MIN; Glucose 73 MG/DL (74-106); HDL Cholesterol 52 MG/DL (40-60); Potassium 3.8 MMOL/L (3.5-5.1); Risk Ratio 2.46; Sodium 136 MMOL/L (136-145); Triglycerides 74 MG/DL (2-150); VLDL Cholesterol 14.8 MG/DL
[2021-05-24] MEDS ORDERED: LORazepam 1 MG TABLET PO PRN (06:28)
[2021-05-24 08:25] LABS: INR 1.1; PT Patient Result 12.5 SECS (10.5-12.0)
[2021-05-24] MEDS: ENOXAPARIN 80 MG/0.8 ML SYRINGE SUBCUT SCH ×2 (09:52→21:55)
[2021-05-24] MEDS: PANTOPRAZOLE 40 MG TABLET PO SCH (09:52)
[2021-05-24] MEDS: acetaZOLAMIDE 250 MG TABLET PO SCH ×2 (09:52→21:55)
[2021-05-24] MEDS: FUROSEMIDE 40 MG/4 ML VIAL IV SCH ×2 (09:52→18:08)
[2021-05-24] MEDS: cefTRIAXone 1,000 MG in SODIUM CHLORIDE 0.9% 100 ML IV SCH (18:08)
[2021-05-24] MEDS ORDERED: LORazepam 1 MG TABLET PO ONE (23:43)
[2021-05-25 06:52] LABS: Basophils % 0.6 % (0.0-0.8); Eosinophils % 0.3 % (0.00-10.9); Hematocrit 40.5 VOL% (35.7-47.0); Hemoglobin 12.6 GM/DL (12.0-16.0); Immature Granulocytes % 0.7 %; Immature Granulocytes Absolute 0.05 #; Lymphocytes # 1.2 10*3/uL (1.4-4.0); Mean Corpuscular HGB Conc 31.1 GM/DL (32-36); Mean Corpuscular Volume 93.1 FL (87-102); Mean Platelet Volume 8.5 FL (9.6-12.0); Neutrophils % 67.4 % (38.7-73.9); Platelet Count 291 T/CUMM (130-400); Red Blood Count 4.35 MC/CUMM (3.8-5.5); Red Cell Distribution Width 16.2 % (9.3-17.3); White Blood Count 6.9 T/CUMM (4-12)
[2021-05-25 07:02] LABS: INR 1.1; PT Patient Result 11.9 SECS (10.5-12.0)
[2021-05-25 07:12] LABS: Albumin 2.6 G/DL (3.4-5.0); Bilirubin,Total 0.5 MG/DL (0.20-1.00); Calcium 9.4 MG/DL (8.5-10.1); Osmolality,Calculated 265.2 MOS/KG (273-304); Potassium 2.9 MMOL/L (3.5-5.1); Total Protein 6.3 G/DL (6.4-8.2)
[2021-05-25] MEDS ORDERED: POTASSIUM CHLORIDE 20 MEQ TABLET PO ONE (09:15)
[2021-05-25] MEDS: PANTOPRAZOLE 40 MG TABLET PO SCH (09:23)
[2021-05-25] MEDS: ENOXAPARIN 80 MG/0.8 ML SYRINGE SUBCUT SCH ×2 (09:24→21:29)
[2021-05-25] MEDS: FUROSEMIDE 40 MG/4 ML VIAL IV SCH ×2 (09:24→16:27)
[2021-05-25] MEDS: acetaZOLAMIDE 250 MG TABLET PO SCH ×2 (09:24→21:29)
[2021-05-25] MEDS ORDERED: CLORAZEPATE 3.75 MG TABLET PO ONE (11:00)
[2021-05-25] MEDS: cefTRIAXone 1,000 MG in SODIUM CHLORIDE 0.9% 100 ML IV SCH (16:26)
[2021-05-25] MEDS ORDERED: ACETAMINOPHEN 325 MG TABLET PO PRN (23:23)
[2021-05-26 08:03] LABS: Basophils % 0.4 % (0.0-0.8); Eosinophils % 0.3 % (0.00-10.9); Hematocrit 44.2 VOL% (35.7-47.0); Hemoglobin 14.2 GM/DL (12.0-16.0); Immature Granulocytes % 0.8 %; Immature Granulocytes Absolute 0.06 #; Lymphocytes # 1.4 10*3/uL (1.4-4.0); Lymphocytes % 17.8 % (21.3-54.2); Mean Corpuscular HGB Conc 32.1 GM/DL (32-36); Mean Corpuscular Volume 91.5 FL (87-102); Mean Platelet Volume 8.2 FL (9.6-12.0); Monocytes % 13.9 % (1.7-12.7); Neutrophils % 66.8 % (38.7-73.9); Platelet Count 275 T/CUMM (130-400); Red Blood Count 4.83 MC/CUMM (3.8-5.5); Red Cell Distribution Width 15.9 % (9.3-17.3); White Blood Count 7.7 T/CUMM (4-12)
[2021-05-26] MEDS: ENOXAPARIN 80 MG/0.8 ML SYRINGE SUBCUT SCH ×2 (08:16→20:29)
[2021-05-26] MEDS: PANTOPRAZOLE 40 MG TABLET PO SCH (08:16)
[2021-05-26] MEDS: FUROSEMIDE 40 MG/4 ML VIAL IV SCH ×2 (08:16→15:29)
[2021-05-26] MEDS: acetaZOLAMIDE 250 MG TABLET PO SCH ×2 (08:16→20:29)
[2021-05-26 08:19] LABS: INR 1.1; PT Patient Result 11.7 SECS (10.5-12.0)
[2021-05-26 08:22] LABS: Calcium 9.3 MG/DL (8.5-10.1); Osmolality,Calculated 263.5 MOS/KG (273-304)
[2021-05-26] MEDS: POTASSIUM CHLORIDE 20 MEQ TABLET PO SCH (11:50)
[2021-05-26] MEDS: NICOTINE 21 MG/24 HR PATCH TRANSDERM SCH (16:26)
[2021-05-26] MEDS: cefTRIAXone 1,000 MG in SODIUM CHLORIDE 0.9% 100 ML IV SCH (16:26)
[2021-05-26] MEDS: MAGNESIUM CHLORIDE 64 MG TABLET PO SCH (20:29)
[2021-05-27 06:23] LABS: Basophils % 0.6 % (0.0-0.8); Eosinophils % 0.5 % (0.00-10.9); Hematocrit 46.6 VOL% (35.7-47.0); Hemoglobin 14.7 GM/DL (12.0-16.0); Immature Granulocytes % 1.2 %; Immature Granulocytes Absolute 0.08 #; Lymphocytes # 1.2 10*3/uL (1.4-4.0); Lymphocytes % 18.1 % (21.3-54.2); Mean Corpuscular HGB Conc 31.5 GM/DL (32-36); Mean Corpuscular Volume 93.2 FL (87-102); Monocytes % 14.5 % (1.7-12.7); Neutrophils % 65.1 % (38.7-73.9); Platelet Count 303 T/CUMM (130-400); Red Cell Distribution Width 15.7 % (9.3-17.3); White Blood Count 6.6 T/CUMM (4-12)
[2021-05-27 06:30] LABS: Calcium 9.6 MG/DL (8.5-10.1); Osmolality,Calculated 266.5 MOS/KG (273-304); Potassium 2.9 MMOL/L (3.5-5.1)
[2021-05-27] MEDS ORDERED: atenoloL 25 MG TABLET PO SCH (09:00)
[2021-05-27] MEDS ORDERED: ASPIRIN EC 81 MG TABLET PO SCH (09:00)
[2021-05-27] MEDS ORDERED: CITALOPRAM 20 MG TABLET PO SCH (09:00)
[2021-05-27] MEDS: NICOTINE 21 MG/24 HR PATCH TRANSDERM SCH (10:07)
[2021-05-27] MEDS: ENOXAPARIN 80 MG/0.8 ML SYRINGE SUBCUT SCH ×2 (10:07→10:22)
[2021-05-27] MEDS: POTASSIUM CHLORIDE 20 MEQ TABLET PO SCH (10:07)
[2021-05-27] MEDS: PANTOPRAZOLE 40 MG TABLET PO SCH (10:08)
[2021-05-27] MEDS: FUROSEMIDE 40 MG/4 ML VIAL IV SCH ×2 (10:08→16:33)
[2021-05-27] MEDS: MAGNESIUM CHLORIDE 64 MG TABLET PO SCH (10:08)
[2021-05-27] MEDS: acetaZOLAMIDE 250 MG TABLET PO SCH (10:08)
[2021-05-27] MEDS: POTASSIUM CHLORIDE 20 MEQ TABLET PO PRN ×2 (11:32→13:28)
[2021-05-27] MEDS: cefTRIAXone 1,000 MG in SODIUM CHLORIDE 0.9% 100 ML IV SCH (16:33)
[2021-05-27 16:34] VITALS: BP 113/57
== END 2021-05-27 18:00 | disposition home or self-care (01) | DRG 463 ==
LOC: N.EDINP 13:37 → N.ED 13:37 → SUATTDRO 16:12 → N.EDINP 17:55 → N.3E 18:04 → SUATTDRO 05-24 07:45
PROVIDERS: ADMIT Phlebology; ATTEND Hospitalist